=== PATIENT | male | born 1950 | race Caucasian/White ===

== ENCOUNTER 2022-06-25 14:44 | Emergency (ER) | payer MEDICARE, SELFPAY ==
[2022-06-25] VITALS (13 sets, daily range): BP systolic 154–184; BP diastolic 88–108; PULSE 66–94; RESP 16–20; O2SAT 95–97; BMI 19.2
--- NOTE | 2022-06-25 15:01 | ED.NURSE ---
Patient assisted from car to exam room. Complaining of severe chest, jaw and arm pain. EKG and vehicle monitor technician applied.
--- NOTE | 2022-06-25 15:30 | ED.CHESTPAIN ---
HPI - Chest Pain General Chief Complaint: Chest Pain Stated Complaint: Thinks he's having a heart attack Time Seen by Provider: 06/25/22 14:51 History of Present Illness HPI narrative: This 71-year-old male comes in reporting an episode of chest pain today and also about 3 or 4 days ago. Both times these chest pains occurred the symptoms lasted for 10 or 15 minutes. He states that he felt a little bit clammy. He was not doing anything strenuous at the time. He states that he typically does not do any strenuous activity because of his knees. He denies having any nausea, vomiting, lightheadedness, or shortness of breath. Currently he is not having any pain but he says there is a very slight discomfort just left of the sternum in the anterior chest. He states that he has a history of diabetes but is no longer taking any medications. He was also prescribed a cholesterol medicine but discontinued this. He states that he is a current every day smoker. Related Data Home Medications Medication Instructions Recorded Confirmed aspirin 325 mg tablet 325 mg PO DAILY 06/25/22 06/25/22 Allergies Allergy/AdvReac Type Severity Reaction Status Date / Time No Known Drug Allergies Allergy Verified 06/25/22 15:36 Review of Systems Narrative Constitutional: No fevers, no weight gain or loss. Eyes: No discharge. No vision changes. HENT: No congestion, no sore throat, no ear pain. Cardiovascular: No palpitations. Chest pain as described above. Respiratory: No shortness of breath, no wheezes, no cough. Gastrointestinal: No abdominal pain, no vomiting, no diarrhea. Genitourinary: No dysuria, no hematuria. Musculoskeletal: Normal range of motion. Skin: No rashes, no pruritis. Neurological: No dizziness, weakness, sensory change, speech change. Endo/Heme/Allergies: No bruising or bleeding. No polydipsia. Pysch: no suicidality, no anxiety, no insomnia. All other systems reviewed and are negative. [facility] Medical History (Updated 06/25/22 @ 16:57 by Jay Mathews MD) CAD (coronary artery disease) DM (diabetes mellitus), type 2 Social History Smoking Status: Current every day smoker What tobacco products do you use: cigarettes Second hand tobacco smoke exposure: No How often do you have a drink containing alcohol: never AUDIT-C Alcohol total score: 0 Non-prescribed substance use: denies use Exam Narrative Exam Narrative: Constitutional: Well-developed, well-nourished, no acute distress. HEENT: Normocephalic, atraumatic. Neck: Normal range of motion. Nontender. Supple. Heart: Regular. No murmurs. Normal rate. Intact distal pulses. Lungs: Clear to auscultation. No chest discomfort. No wheezes, rhonchi, or rales. Abdomen: Normal bowel sounds. Nontender. No rebound tenderness. Genitalia: Deferred. Back: No midline tenderness. Normal range of motion. Extremities: Normal range of motion. No injury. Skin: Intact. No rash. Warm. No erythema or pallor. Neurologic: No altered sensation. No weakness. Alert and oriented. Psychiatric: No suicidality. No anxiety or depression. No insomnia. Nursing notes and vitals signs are reviewed. Const Vital Signs, click to edit/add: Vital Signs - 24 hr 06/25/22 14:55 06/25/22 15:00 06/25/22 15:15 Pulse Rate [Pulse Oximeter] 94 94 84 Respiratory Rate 18 Blood Pressure [Left Upper Arm] 184/102 H 154/97 H 168/94 H Pulse Oximetry 95 96 95 Oxygen Delivery Method Room Air Room Air Room Air 06/25/22 15:30 06/25/22 15:45 06/25/22 16:00 Pulse Rate [Pulse Oximeter] 85 82 Respiratory Rate Blood Pressure [Left Upper Arm] 164/100 H 181/98 H 169/92 H Pulse Oximetry 95 96 Oxygen Delivery Method Room Air Room Air Course Course Hospital Course: This patient comes in with episodes of chest pain as described above. He has not had any chest pain during his visit here. His EKG shows normal sinus rhythm without any ST or T-wave abnormalities. His troponin point of care returns at 0.35. Troponin I from the lab returns at 0.39. Upon hearing the point of care troponin being elevated an attempt was made to reach out to hospitals in the area that could accommodate him. So far there are no beds available anywhere. Vital Signs Vital signs: Initial Vital Signs Pulse Rate 94 06/25/22 14:55 Pulse Rhythm 06/25/22 14:55 Respiratory Rate 18 06/25/22 14:55 Blood Pressure 184/102 H 06/25/22 14:55 Blood Pressure Mean 129 06/25/22 14:55 Blood Pressure Position Supine 06/25/22 14:55 Pulse Oximetry 95 06/25/22 14:55 Oxygen Delivery Method 06/25/22 14:55 Vital Signs Pulse Rate 94 06/25/22 14:55 Respiratory Rate 18 06/25/22 14:55 Blood Pressure 184/102 H 06/25/22 14:55 Pulse Oximetry 95 06/25/22 14:55 Oxygen Delivery Method 06/25/22 14:55 Pulse Rate 82 06/25/22 16:00 Respiratory Rate 18 06/25/22 14:55 Blood Pressure 169/92 H 06/25/22 16:00 Pulse Oximetry 96 06/25/22 16:00 Oxygen Delivery Method 06/25/22 16:00 MDM - Chest Pain MDM Narrative Medical decision making narrative: This patient comes in with a non STEMI. His troponin is elevated to 0.39. His EKG is normal. He is not currently having any chest pain. He did received 4 baby aspirin upon arrival. He also received a heparin protocol for acute coronary syndrome. Efforts were made to transfer this patient more locally but there were no beds available. [facility] was contacted and they are able to receive him. Dr. Frias is the accepting physician. Lab Data Labs: Lab Results 06/25/22 06/25/22 06/25/22 Range/Units 15:16 15:16 15:30 WBC 8.81 (4.50-11.00) K/uL RBC 5.13 (4.30-5.90) m/uL Hgb 15.4 (13.5-17.5) gm/dL Hct 45.3 (37.0-53.0) % MCV 88 (80-100) fL MCH 30 (26-34) pg MCHC 34 (32-36) gm/dL RDW Coeff of Hyacinth 14.4 (11.5-15.5) % Plt Count 253 (140-440) K/uL Neut % (Auto) 68.5 (42.0-72.0) % Lymph % (Auto) 21.1 (20-44) % Burnett % (Auto) 7.4 (0.0-11.0) % Eos % (Auto) 2.7 (0.0-7.0) % Baso % (Auto) 0.2 (0.0-3.0) % Neut # (Auto) 6.03 (1.7-7.0) K/uL Lymph # (Auto) 1.86 (0.90-2.90) K/uL Burnett # (Auto) 0.70 (0.00-0.90) K/UL Eos # (Auto) 0.24 (0.00-0.50) K/uL Baso # (Auto) 0.02 (0.00-0.30) K/uL Abs Immat Gran (auto) 0.01 (0.00-0.30) K/uL Sodium 138 (135-149) mmol/L Potassium 3.8 (3.6-5.1) mmol/L Chloride 103 (96-114) mmol/L Carbon Dioxide 25 (20-32) mmol/L BUN 19 (7-30) mg/dL Creatinine 1.0 (0.5-1.5) mg/dL Estimated Creat Clear 58.15 Estimated GFR 81 ml/min Glucose 221 H (60-115) mg/dL Calcium 9.4 (8.4-10.6) mg/dL Troponin I 0.39 H* (0.01-0.04) ng/mL POC Troponin I 0.35 H (0.01-0.04) ng/ml ECG Data Attestation: I personally reviewed and interpreted this ECG as follows: Interpretation: Normal sinus rhythm. Rate is 85 beats per minute. There are no specific ST or T-wave abnormalities. Discharge Plan Discharge Clinical Impression: Non-ST elevated myocardial infarction (non-STEMI) Patient Disposition: Xfer Other Condition: Unchanged Prescriptions: No Action aspirin 325 mg tablet 325 mg PO DAILY Follow Up/Referrals: Ino Zhao MD [Referring] - Stand Alone Forms: [employer] Info Instructions
--- NOTE | 2022-06-25 15:38 | ED.NURSE ---
Troponin POC 0.35, handed to at 1530.
[2022-06-25 15:44] LABS: Basophils Absolute Auto 0.02 K/uL (0.00-0.30); Basophils Percent Auto 0.2 % (0.0-3.0); Eosinophils Absolute Auto 0.24 K/uL (0.00-0.50); Eosinophils Percent Auto 2.7 % (0.0-7.0); Hematocrit 45.3 % (37.0-53.0); Hemoglobin* 15.4 gm/dL (13.5-17.5); Immature Granulocytes Abs Auto 0.01 K/uL (0.00-0.30); Lymphocytes Absolute Auto 1.86 K/uL (0.90-2.90); Lymphocytes Percent Auto 21.1 % (20-44); Mean Corpuscular HGB Conc 34 gm/dL (32-36); Mean Corpuscular Hemoglobin 30 pg (26-34); Mean Corpuscular Volume 88 fL (80-100); Monocytes Percent Auto 7.4 % (0.0-11.0); Neutrophils Absolute Auto 6.03 K/uL (1.7-7.0); Neutrophils Percent Auto 68.5 % (42.0-72.0); Platelet Count* 253 K/uL (140-440); RDW Coefficient of Variation % 14.4 % (11.5-15.5); Red Blood Count 5.13 m/uL (4.30-5.90); White Blood Count* 8.81 K/uL (4.50-11.00)
[2022-06-25] MEDS: ASPIRIN 81 MG TAB.CHEW 324 MG PO (15:45)
[2022-06-25 15:46] LABS: Troponin, Point-of-Care* 0.35 ng/ml (0.01-0.04)
[2022-06-25 15:58] LABS: Chloride* 103 mmol/L (96-114); Potassium* 3.8 mmol/L (3.6-5.1); Sodium* 138 mmol/L (135-149)
[2022-06-25 15:59] LABS: Slide Review Reflex No
[2022-06-25 16:01] LABS: Carbon Dioxide* 25 mmol/L (20-32); Est. Creatinine Clearance* 58.15; Estimated Glomerular Filt Rate 81 ml/min
[2022-06-25 16:02] LABS: Blood Urea Nitrogen* 19 mg/dL (7-30); Calcium* 9.4 mg/dL (8.4-10.6); Glucose* 221 mg/dL (60-115)
[2022-06-25 16:22] LABS: Troponin I* 0.39 ng/mL (0.01-0.04)
[2022-06-25 17:33] LABS: PCR FLU A Negative PCR FLU A (Negative); PCR FLU B Negative PCR FLU B (Negative); SARS PCR* Negative SARS-CoV-2 (Negative)
[2022-06-25] MEDS: HEPARIN 25,000 UNIT/500 ML BAG 14 UNIT IV (17:39)
[2022-06-25] MEDS: HEPARIN 5,000 UNIT/0.5 ML INJ 3500 UNIT IVP (17:39)
--- NOTE | 2022-06-25 17:56 | ED.NURSE ---
Addendum entered by Tim Valles RN 06/25/22 21:04: Sp error, end of note should read pt and his agreeable to transfer.. Original Note: Pt and concerned about transfer to [place] due to distance from home. MD notified, MD spoke to pt and his in the room for several minutes explaining risks of not going to [facility] for further care. After conversation, pt and his agreeable to cancer.
--- NOTE | 2022-06-25 18:34 | ED.NURSE ---
Report called to RN at [facility] ([phone]).
[2022-06-25 18:54] LABS: INR 0.92 (0.91-1.10); Prothrombin Time 12.7 Seconds
[2022-06-25 19:13] LABS: Partial Thromboplastin Time* 33 Seconds (23-33)
== END 2022-06-25 18:30 | disposition other institution (70) ==
PROVIDERS: Emergency Provider Emergency Medicine Emergency Medical Services
DX: I21.4 Non-ST elevation (NSTEMI) myocardial infarction (principal)
CPT/HCPCS: 36415; 80048; 84484; 85025; 85610; 85730; 87631; 93005; 99285; A9270; J1644

== ENCOUNTER 2022-06-25 18:15 | Outpatient (CLI) | payer MEDICARE, SELFPAY | END 2022-06-25 18:16 | disposition home or self-care (01) | LOC: AMB 08-20 02:29 | PROVIDERS: PCP Family Medicine; Visit Provider Emergency Medicine Emergency Medical Services | DX: I21.4 Non-ST elevation (NSTEMI) myocardial infarction (principal) | CPT/HCPCS: A0425; A0434 ==

== ENCOUNTER 2022-07-17 12:00 | Outpatient (REF) | payer MEDICARE, SELFPAY ==
[2022-07-17 12:55] LABS: INR 3.19 (0.91-1.10); Prothrombin Time 34.1 Seconds
== END 2022-07-17 12:01 | disposition home or self-care (01) ==
LOC: NPINS 12:00
PROVIDERS: PCP Family Medicine
DX: Z00.00 Encounter for general adult medical examination without abnormal findings (principal); I10 Essential (primary) hypertension; N18.30 Chronic kidney disease, stage 3 unspecified; E78.5 Hyperlipidemia, unspecified; E11.9 Type 2 diabetes mellitus without complications; I48.91 Unspecified atrial fibrillation
CPT/HCPCS: 85610

== ENCOUNTER 2022-07-20 13:23 | Outpatient (REF) | payer MEDICARE, SELFPAY ==
[2022-07-20 14:32] LABS: INR 2.79 (0.91-1.10); Prothrombin Time 30.8 Seconds
== END 2022-07-20 13:24 | disposition home or self-care (01) ==
LOC: NPINS 13:23
PROVIDERS: Physician Assistant; PCP Family Medicine
DX: I48.91 Unspecified atrial fibrillation (principal)
CPT/HCPCS: 85610

== ENCOUNTER 2022-07-22 10:34 | Outpatient (CLI) | payer MEDICARE, SELFPAY ==
[2022-07-22 12:46] LABS: Albumin* 3.7 g/dL (3.3-5.0); Chloride* 97 mmol/L (96-114)
[2022-07-22 12:47] LABS: Sodium* 134 mmol/L (135-149)
[2022-07-22 12:49] LABS: Bilirubin Total* 0.5 mg/dL (0.1-1.5); Carbon Dioxide* 26 mmol/L (20-32); Cholesterol* 89 mg/dL (90-199); Creatinine* 1.3 mg/dL (0.5-1.5); Estimated Glomerular Filt Rate 59 ml/min; Total Protein* 6.8 g/dL (6.0-8.3)
[2022-07-22 12:50] LABS: Alanine Aminotransferase* 42 U/L (4-50); Alkaline Phosphatase* 91 U/L (40-150); Aspartate Amino Transferase* 37 U/L (12-35); Blood Urea Nitrogen* 21 mg/dL (7-30); Calcium* 9.2 mg/dL (8.4-10.6); Glucose* 205 mg/dL (60-115); HDL Cholesterol* 26 mg/dL (>=40); LDL Cholesterol Calculated 38 mg/dL (<100); Triglycerides* 127 mg/dL (40-149)
[2022-07-22 13:07] LABS: Microalbumin Creatinine Ratio 3420 mg/g (0-30); Microalbumin Urine 836 mg/dL
== END 2022-07-22 10:35 | disposition home or self-care (01) ==
PROVIDERS: PCP Family Medicine; Visit Provider Family Medicine
DX: Z00.00 Encounter for general adult medical examination without abnormal findings (principal); E11.9 Type 2 diabetes mellitus without complications; E78.5 Hyperlipidemia, unspecified; I10 Essential (primary) hypertension; I25.10 Atherosclerotic heart disease of native coronary artery without angina pectoris; K21.9 Gastro-esophageal reflux disease without esophagitis; N18.30 Chronic kidney disease, stage 3 unspecified; Z86.39 Personal history of other endocrine, nutritional and metabolic disease
CPT/HCPCS: 80053; 80061; 82043; 82570

== ENCOUNTER 2022-07-24 10:54 | Outpatient (RCR) | payer MEDICARE, SELFPAY ==
[2022-07-24 11:16] LABS: Prothrombin Time 22.8 Seconds
== END 2022-08-19 12:41 | disposition home or self-care (01) ==
LOC: LAB 10:54
PROVIDERS: PCP Family Medicine; Visit Provider Family Medicine
DX: I48.91 Unspecified atrial fibrillation (principal)
CPT/HCPCS: 85610

== ENCOUNTER 2022-08-01 17:29 | Observation (INO) | payer MEDICARE, SELFPAY ==
[2022-08-01] VITALS (12 sets, daily range): BP systolic 130–151; BP diastolic 56–73; PULSE 54–59; RESP 18; TEMP 36.5–37.2; O2SAT 94–99; BMI 20.7
--- NOTE | 2022-08-01 18:02 | CRLHL7_ITS ---
For Patients: As a result of the Century Cures Act, medical imaging exams and procedure reports are released immediately into your electronic medical record. You may view this report before your referring provider. If you have questions, please contact your health care provider. INDICATION: SOB HISTORY: Shortness of breath. COMPARISON: 07/23/2015. 07/09/2013. TECHNIQUE: Chest one-view portable. FINDINGS: Postoperative changes of a median sternotomy. There is pleural thickening in the right hemithorax, with an increase in interstitial type opacities in the right lung when compared with 07/23/2015. There is no pneumothorax or deep sulcus sign. Calcified, bilateral pleural plaques, right greater than left. The central airway is normal. There is no sizable pleural effusion. There is no pneumothorax or deep sulcus sign. Impression: 1. Bilateral calcified pleural plaques, right greater than left. 2. Interstitial type opacities in the right lung, with interval progression when compared with 07/2015. This may represent pulmonary fibrosis. Dictated by Shabbir Almonte MD @ 08/01/2022 7:12:27 PM Dictated by: Shabbir Almonte MD @ 08/01/2022 19:12:34 (Electronically Signed)
--- NOTE | 2022-08-01 18:08 | CRLHL7_ITS ---
For Patients: As a result of the Century Cures Act, medical imaging exams and procedure reports are released immediately into your electronic medical record. You may view this report before your referring provider. If you have questions, please contact your health care provider. INDICATION: Fall. TECHNIQUE: Noncontrast CT images acquired through the brain. COMPARISON: None. FINDINGS: Prominence of the ventricles and sulci compatible with mild diffuse cerebral volume loss. No mass effect or midline shift. The solorzano white differentiation is maintained. No acute intracranial hemorrhage or pathologic extra-axial fluid collection. Chronic lacunar infarction or prominent perivascular space right internal capsule anterior limb. Atherosclerotic calcifications in the carotid siphons. The globes are symmetric. The calvarium is intact. The visualized paranasal sinuses and mastoid air cells are clear. IMPRESSION: No acute intracranial hemorrhage or mass effect. Please note that all CT scans at this facility use dose modulation, iterative reconstruction, and/or weight-based dosing when appropriate to reduce radiation dose to as low as reasonably achievable. Dictated by Matias Zuluaga MD @ 08/01/2022 7:03:33 PM (Electronically Signed)
[2022-08-01 18:40] LABS: Basophils Absolute Auto 0.02 K/uL (0.00-0.30); Basophils Percent Auto 0.3 % (0.0-3.0); Eosinophils Percent Auto 2.6 % (0.0-7.0); Hematocrit 33.4 % (37.0-53.0); Hemoglobin* 10.8 gm/dL (13.5-17.5); Immature Granulocytes Abs Auto 0.01 K/uL (0.00-0.30); Immature Granulocytes Pct Auto 0.1 %; Lymphocytes Percent Auto 16.1 % (20-44); Mean Corpuscular HGB Conc 32 gm/dL (32-36); Mean Corpuscular Hemoglobin 28 pg (26-34); Mean Corpuscular Volume 88 fL (80-100); Monocytes Percent Auto 9.3 % (0.0-11.0); Neutrophils Absolute Auto 5.57 K/uL (1.7-7.0); Neutrophils Percent Auto 71.6 % (42.0-72.0); Platelet Count* 351 K/uL (140-440); RDW Coefficient of Variation % 14.4 % (11.5-15.5); Red Blood Count 3.81 m/uL (4.30-5.90); White Blood Count* 7.77 K/uL (4.50-11.00)
[2022-08-01 18:43] LABS: Slide Review Reflex No
[2022-08-01 18:55] LABS: INR 1.17 (0.91-1.10); Prothrombin Time 15.6 Seconds
--- NOTE | 2022-08-01 18:56 | CRLHL7_ITS ---
For Patients: As a result of the Century Cures Act, medical imaging exams and procedure reports are released immediately into your electronic medical record. You may view this report before your referring provider. If you have questions, please contact your health care provider. DATE: 08/01/2022 CLINICAL HISTORY: Patient with focal neurological deficits. TECHNIQUE: Standard helical CT image acquisition through the intracranial circulation following intravenous administration of contrast material with bolus tracking. Multiplanar reconstructed images were performed and interpreted. COMPARISON: CT same day. FINDINGS: There is no cerebral aneurysm or large vessel occlusion. The right internal carotid artery is normal. The right middle cerebral artery and its branches are normal. The right anterior cerebral artery and its branches are normal. The left internal carotid artery is normal. The left middle cerebral artery and its branches are normal. The left anterior cerebral artery and its branches are normal. The anterior communicating artery is well visualized and appears normal. The right vertebral artery and PICA are normal. The left vertebral artery and PICA are normal. The right vertebral artery is dominant. The basilar artery is patent and appears normal. The right posterior cerebral artery is normal. The left posterior cerebral artery is normal. The visualized venous structures are patent. IMPRESSION: Normal CT angiogram of the head without intracranial aneurysm or other neurovascular abnormality. Please note that all CT scans at this facility use dose modulation, iterative reconstruction, and/or weight-based dosing when appropriate to reduce radiation dose to as low as reasonably achievable. Dictated by Suzan Lechuga MD @ 08/01/2022 10:03:55 PM (Electronically Signed)
--- NOTE | 2022-08-01 18:56 | CRLHL7_ITS ---
For Patients: As a result of the Century Cures Act, medical imaging exams and procedure reports are released immediately into your electronic medical record. You may view this report before your referring provider. If you have questions, please contact your health care provider. DATE: 08/01/2022 CLINICAL HISTORY: Patient with focal neurological deficits. TECHNIQUE: Standard helical CT image acquisition of the neck up to the skull base after bolus intravenous contrast enhancement. Multiplanar reconstructed images performed on a separate workstation. COMPARISON: CT same day. FINDINGS: The origins of the great vessels from the aortic arch are patent. The origin of the right vertebral artery demonstrates mild narrowing. The origin of the left vertebral artery demonstrates mild narrowing. The common carotid arteries are patent. There is a mild (<50%) stenosis at the origin of the right internal carotid artery by NASCET criteria. This is caused by non-calcified plaque with a <2mm residual lumen. There is a severe (75%) stenosis at the origin of the left internal carotid artery by NASCET criteria. This is caused by a large amount of non-calcified plaque with a 1.1mm residual lumen. The rest of the cervical segments of the internal carotid arteries are patent up to the skull base. The vertebral arteries are codominant. The cervical segments of the vertebral arteries are patent up to the skull base. The visualized lung apices demonstrate severe emphysema and biapical scarring. The thyroid gland is unremarkable. The soft tissues of the neck are unremarkable. There are degenerative changes in the cervical spine. IMPRESSION: 1. Severe (75%) stenosis at the origin of the left internal carotid artery by NASCET criteria caused by a large amount of non-calcified plaque with a 1.1mm residual lumen. 2. Mild (<50%) stenosis at the origin of the right internal carotid artery by NASCET criteria caused by non-calcified plaque with a <2mm residual lumen. 3. Mild bilateral vertebral artery origin stenosis. Please note that all CT scans at this facility use dose modulation, iterative reconstruction, and/or weight-based dosing when appropriate to reduce radiation dose to as low as reasonably achievable. Dictated by Suzan Lechuga MD @ 08/01/2022 10:00:54 PM (Electronically Signed)
[2022-08-01 19:01] LABS: Chloride* 104 mmol/L (96-114); Potassium* 4.3 mmol/L (3.6-5.1); Sodium* 137 mmol/L (135-149)
[2022-08-01 19:04] LABS: Blood Urea Nitrogen* 28 mg/dL (7-30); Carbon Dioxide* 27 mmol/L (20-32); Creatinine* 1.3 mg/dL (0.5-1.5); Est. Creatinine Clearance* 45.46; Estimated Glomerular Filt Rate 59 ml/min
[2022-08-01 19:05] LABS: Glucose* 160 mg/dL (60-115)
[2022-08-01 19:16] LABS: PCR FLU A Negative PCR FLU A (Negative); PCR FLU B Negative PCR FLU B (Negative); PCR RSV Negative PCR RSV (Negative)
[2022-08-01 19:20] LABS: SARS PCR* Negative SARS-CoV-2 (Negative)
--- NOTE | 2022-08-01 19:51 | ED_ITS ---
HPI - General Adult General Date Seen: 08/01/22 Chief complaint: Neuro Symptoms/Altered Deficit Stated complaint: Weakness Numbness in Arm Time Seen by Provider: 08/01/22 17:33 Source: patient and family History of Present Illness HPI narrative: Patient is a 72-year-old male with recent past medical history notable for 4 vessel CABG in [place] after STEMI in mid June. He also has a past medical history of TIA, with an MRI and MR a done here in 2019 showing an acute stroke, 50% stenosis in the internal carotid on the left, and bilateral stenosis in the MCAs. He developed atrial fibrillation after his CABG and was started on Coumadin. He does have a history of medication noncompliance. He tells me that he has been taking his Coumadin, but when it was checked on July 24 it was 1.9, it was 1.4 on July 30. He tells me the dose was increased as they are continuing to work on getting him therapeutic. Last night, as he was getting ready for bed, he says he had development of paresthesias in his left arm, he says that his hand had involuntary squirming movements, and he was unable to move his arm for about 15 minutes. Says that he has had TIAs in the past and so when the symptoms resolved he says he just 1 on with his night. Also says that at same time he developed some paresthesias in the left side of his face and circumferentially around his lips. He went to bed as the symptoms seem to improve. This morning however he feels like the symptoms came back. He has paresthesias on the left side of his face, on the left arm from the elbow down, and now on the left leg from the knee down. He has not had further weakness. He does feel like it is harder to speak, although it is a little difficult to determine exactly in what way. He is certainly not dysarthric or aphasic. His says that he did not have a facial droop. He has not had chest pain. He has not had shortness of breath. He does say that when he lays down at night he often has a panic attack and has to sit back up, calm himself down before he can lay back down. He is then able to lay flat without difficulty breathing. He started cardiac rehab just in the past couple of days, says that is really not gotten going yet. Otherwise he feels like he is doing pretty well from a surgery standpoint, felt he had been improving although in the past couple of days he has felt just generally more weak. He has not had any vomiting or diarrhea. Has not had fevers. He quit smoking after his surgery. Related Data Home Medications Medication Instructions Recorded Confirmed acetaminophen 325 mg capsule 325 mg PO ONCE PRN 07/22/22 08/01/22 (Tylenol) amlodipine 10 mg tablet 10 mg PO QDAY 07/22/22 08/01/22 ascorbic acid (vitamin C) 500 mg 500 mg PO DAILY 07/22/22 08/01/22 capsule atorvastatin 80 mg tablet 80 mg PO QDAY 07/22/22 08/01/22 clopidogrel 75 mg tablet 75 mg PO QDAY 07/22/22 08/01/22 glipizide 5 mg tablet 5 mg PO QDAY 07/22/22 08/01/22 metoprolol succinate 50 mg 50 mg PO QDAY 07/22/22 08/01/22 tablet,extended release 24 hr vitamin B complex 1 tab PO QDAY 07/22/22 08/01/22 warfarin 2.5 mg tablet 2.5 mg PO QDAY 07/22/22 08/01/22 warfarin 2.5 mg tablet 1.25 mg PO QDAY 08/01/22 08/01/22 Allergies Allergy/AdvReac Type Severity Reaction Status Date / Time No Known Drug Allergies Allergy Verified 08/01/22 19:51 Review of Systems Status of ROS: Reports: 10 or more systems reviewed and unremarkable except as noted in History and below [facility] Medical History Bilateral carotid artery disease CAD (coronary artery disease) CKD (chronic kidney disease), stage III COPD (chronic obstructive pulmonary disease) DM (diabetes mellitus), type 2 Dyslipidemia GERD (gastroesophageal reflux disease) History of non-ST elevation myocardial infarction (NSTEMI) (06/25/22) History of TIA (transient ischemic attack) (03/2019) History of vitamin D deficiency Hypertension PAF (paroxysmal atrial fibrillation) Poor dentition Tobacco abuse disorder Surgical History History of four vessel coronary artery bypass graft (06/30/22) History of left knee surgery History of tonsillectomy Family History Other Adopted person Social History Narrative: , 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 In general, an alert, nontoxic male. Thin, appears fatigued. Head: Normocephalic, atraumatic. Eyes: Pupils are equal reactive. Extraocular movements are full. Conjunctivae are normal. ENT: Mucous membranes are moist. Throat is normal. Neck: Supple without lymphadenopathy. No stridor. Heart: Regular rate and rhythm. No murmur or rub. Lungs: Clear bilaterally. No increased work of breathing, crackles or wheezes. Abdomen: Soft and nontender. No organomegaly. Extremities: Well perfused. No edema. No calf tenderness. Pulses intact. Neurologic: Patient is alert and oriented to person and place. Speech is fluent. Face is symmetric. Moves all extremities equally, strength is 5/5 in bilateral upper and lower extremities. Cerebellar function is intact by finger- nose testing. Sensation is intact, though he feels like he has pins and needles throughout the distal left upper and lower leg, and the left side of his face. Affect: Normal. Skin: Warm and dry. Well perfused. Const: Vital Signs, click to edit/add: Vital Signs - 24 hr 08/01/22 17:38 08/01/22 18:37 08/01/22 18:43 Temperature 97.7 F Pulse Rate 58 L 55 L Pulse Rate [Pulse Oximeter] 59 L Respiratory Rate 18 Blood Pressure 141/73 H Blood Pressure [Ri ght Upper Arm] 130/64 Pulse Oximetry 99 97 98 Oxygen Delivery Me thod Room Air 08/01/22 19:00 08/01/22 19:02 08/01/22 19:03 Temperature Pulse Rate 54 L 54 L 55 L Pulse Rate [Pulse Oximeter] Respiratory Rate Blood Pressure 132/65 Blood Pressure [Ri ght Upper Arm] Pulse Oximetry 98 98 98 Oxygen Delivery Me thod 08/01/22 19:33 08/01/22 19:34 Temperature Pulse Rate 56 L 55 L Pulse Rate [Pulse Oximeter] Respiratory Rate Blood Pressure 135/56 L Blood Pressure [Ri ght Upper Arm] Pulse Oximetry 95 95 Oxygen Delivery Me thod Documenting provider has reviewed patient's vital signs: yes Course Course Hospital Course: Patient had an EKG which by my review showed a normal sinus rhythm, ventricular rate of He went on to have a CT of the head without contrast which I read as negative without acute findings. Final radiology report is likewise negative. I did discuss his case with the neurologist on-call at [facility]. He felt that the patient's symptoms could be consistent with a thalamic stroke and recommended CT angiogram to rule out a large thrombus. This is pending. In the meantime, labs have shown a normal white blood cell count of 7.8. Hemoglobin is 10.8. Platelets are normal. His INR interestingly has dropped again to 1.2. Metabolic panel is entirely within normal limits. COVID flu and RSV are negative. Point of care troponin is 0. I did do a chest x-ray as well, I compared this to previous his he does have some abnormalities but these large in seem to been present on his previous x-ray. Median sternotomy is new. Final radiology report is as follows.: 1. Bilateral calcified pleural plaques, right greater than left. 2. Interstitial type opacities in the right lung, with interval progression when compared with 07/2015. This may represent pulmonary fibrosis. He does not appear clinically to be in congestive heart failure and I do not see signs of this on his chest x-ray either. At the time of his lab draw the chemistry machine was down and I did not order a BNP because of that. Given the lack of clinical suspicion for congestive heart failure do not think he needs that lab. CT angiogram read as follows: No proximal large vessel occlusion. Moderate (50-69 percent) proximal left cervical internal carotid artery stenosis secondary to large noncalcified plaque. Mild (less than 50 percent) proximal right cervical internal carotid stenosis. Moderate focal narrowing of the proximal left and distal right vertebral artery V1 segments is likely secondary to atherosclerotic disease. Short-segment arterial dissection would be considered less likely. Moderate proximal left subclavian artery stenosis. Patient has been stable from a neurologic standpoint. I did speak with Neurology again about his CT angiogram findings, they recommend no further treatment aside from working on getting him therapeutic on his Coumadin. He does need an MRI which can be done non emergently tomorrow or Wednesday. He will be admitted for observation and further treatment. Vital Signs Vital signs: Initial Vital Signs Temperature 97.7 F 08/01/22 17:38 Temperature Source Temporal Artery Scan 08/01/22 17:38 Pulse Rate 59 L 08/01/22 17:38 Respiratory Rate 18 08/01/22 17:38 Blood Pressure 130/64 08/01/22 17:38 Blood Pressure Mean 86 08/01/22 17:38 Blood Pressure Position Sitting 08/01/22 17:38 Pulse Oximetry 99 08/01/22 17:38 Oxygen Delivery Method 08/01/22 17:38 Vital Signs Temperature 97.7 F 08/01/22 17:38 Pulse Rate 59 L 08/01/22 17:38 Respiratory Rate 18 08/01/22 17:38 Blood Pressure 130/64 08/01/22 17:38 Pulse Oximetry 99 08/01/22 17:38 Oxygen Delivery Method 08/01/22 17:38 Temperature 97.7 F 08/01/22 17:38 Pulse Rate 55 L 08/01/22 19:34 Respiratory Rate 18 08/01/22 17:38 Blood Pressure 135/56 L 08/01/22 19:34 Pulse Oximetry 95 08/01/22 19:34 Oxygen Delivery Method 08/01/22 17:38 Medical Decision Making Lab Data Labs: Lab Results 08/01/22 08/01/22 08/01/22 Range/Units 18:20 18:20 18:20 WBC 7.77 (4.50-11.00) K/uL RBC 3.81 L (4.30-5.90) m/uL Hgb 10.8 L (13.5-17.5) gm/dL Hct 33.4 L (37.0-53.0) % MCV 88 (80-100) fL MCH 28 (26-34) pg MCHC 32 (32-36) gm/dL RDW Coeff of Hyacinth 14.4 (11.5-15.5) % Plt Count 351 (140-440) K/uL Neut % (Auto) 71.6 (42.0-72.0) % Lymph % (Auto) 16.1 L (20-44) % [place] % (Auto) 9.3 (0.0-11.0) % Eos % (Auto) 2.6 (0.0-7.0) % Baso % (Auto) 0.3 (0.0-3.0) % Neut # (Auto) 5.57 (1.7-7.0) K/uL Lymph # (Auto) 1.30 (0.90-2.90) K/uL [place] # (Auto) 0.70 (0.00-0.90) K/UL Eos # (Auto) 0.20 (0.00-0.50) K/uL Baso # (Auto) 0.02 (0.00-0.30) K/uL Abs Immat Gran (auto) 0.01 (0.00-0.30) K/uL Imm/Tot Granulo (auto) 0.1 % INR 1.17 H (0.91-1.10) Sodium 137 (135-149) mmol/L Potassium 4.3 (3.6-5.1) mmol/L Chloride 104 (96-114) mmol/L Carbon Dioxide 27 (20-32) mmol/L BUN 28 (7-30) mg/dL Creatinine 1.3 (0.5-1.5) mg/dL Estimated Creat Clear 45.46 Estimated GFR 59 ml/min Glucose 160 H (60-115) mg/dL Calcium 9.0 (8.4-10.6) mg/dL SARS-CoV-2 (PCR) (Negative) Influenza Type A (PCR) (Negative) Influenza Type B (PCR) (Negative) RSV (PCR) (Negative) POC Troponin I (0.01-0.04) ng/ml 08/01/22 08/01/22 Range/Units 18:20 18:20 WBC (4.50-11.00) K/uL RBC (4.30-5.90) m/uL Hgb (13.5-17.5) gm/dL Hct (37.0-53.0) % MCV (80-100) fL MCH (26-34) pg MCHC (32-36) gm/dL RDW Coeff of Hyacinth (11.5-15.5) % Plt Count (140-440) K/uL Neut % (Auto) (42.0-72.0) % Lymph % (Auto) (20-44) % [place] % (Auto) (0.0-11.0) % Eos % (Auto) (0.0-7.0) % Baso % (Auto) (0.0-3.0) % Neut # (Auto) (1.7-7.0) K/uL Lymph # (Auto) (0.90-2.90) K/uL [place] # (Auto) (0.00-0.90) K/UL Eos # (Auto) (0.00-0.50) K/uL Baso # (Auto) (0.00-0.30) K/uL Abs Immat Gran (auto) (0.00-0.30) K/uL Imm/Tot Granulo (auto) % INR (0.91-1.10) Sodium (135-149) mmol/L Potassium (3.6-5.1) mmol/L Chloride (96-114) mmol/L Carbon Dioxide (20-32) mmol/L BUN (7-30) mg/dL Creatinine (0.5-1.5) mg/dL Estimated Creat Clear Estimated GFR ml/min Glucose (60-115) mg/dL Calcium (8.4-10.6) mg/dL SARS-CoV-2 (PCR) Negative SARS-CoV-2 (Negative) Influenza Type A (PCR) Negative PCR FLU A (Negative) Influenza Type B (PCR) Negative PCR FLU B (Negative) RSV (PCR) Negative PCR RSV (Negative) POC Troponin I 0.00 L (0.01-0.04) ng/ml Discharge Plan Discharge Clinical Impression: CAD (coronary artery disease), CVA (cerebral vascular accident) Patient Disposition: Admitted As Inpatient Condition: Stable
--- NOTE | 2022-08-01 21:23 | PM.IMHP1 ---
Hospitalist- H&P: HPI History of Present Illness Date Seen: 08/01/22 Chief complaint: Weakness Numbness in Arm Narrative: Phillip Hernandez is a 72 year old male who presented to the emergency room with his today for concerns of generalized weakness and left-sided numbness. Has noted weakness over the past few days, generalized. On further questioning, seems to be primarily in his lower extremities, but is able to get up from a chair without assistance. He noted that today when he went to the bathroom he almost felt ?achy? in addition to his weakness. He has had no falls. He has not had any palpitations. He has not had any chest pain or dyspnea. Patient also noted acute onset of L arm numbness last night before bed, had a large cramp-type movement accompanying this feeling (but didn't actually feel a cramp at that time). The numbness spread superiorly up into L side of face. There was no accompanying chest pain. attempted to bring patient to ED, but patient refused, went to bed and slept fairly well. Today, continued to have significant generalized weakness, which prompted his ED visit. The numbness from yesterday has actually improved and is primarily only noted in L hand today. ER course and findings: - no acute findings on head CT or CTA - mild stenosis of right internal carotid, severe stenosis at left internal carotid (formal report below) - no acute changes on EKG, troponin negative - Hemoglobin 10.9 (was 10.8 last week during PCP appointment, was 15 prior to cardiac event in early June) - INR 1.17 - concern for chronic lung disease on chest x-ray Known history of CAD, recent nSTEMI and CABG x4 06/30/2022 in [place]. Postoperatively, developed new onset atrial fibrillation, on metoprolol and Amiodarone for rate control, Plavix and Coumadin for prophylaxis. CHADS-VASC score of >7. Patient also has known stenosis of his left carotid artery and left subclavian by previous imaging. Saw his Management Engineer (Dr. Chambers, EP) yesterday for a follow-up. At that appointment, plan was made to stop amiodarone, and start Bisoprolol on Wednesday at 2.[address] Chambers is also working on coupons for patient to transition from Coumadin to apixaban (currently not on this, cost prohibitive). Past medical history includes emphysema, non-insulin dependent DM2 (last A1C 7.2), TIA, chronic lung disease with advanced emphysema, stage III CKD. Medication compliance is not entirely clear, although patient confirms taking his Coumadin nightly as prescribed. His INR remained subtherapeutic and has actually trended downward over the last week. Dr. Wade is PCP. Lives with Keesha (medical decision maker, if needed) in [place]. Requests DNR/DNI status. 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 Has an adult son and daughter in [place]. Quit smoking this year after his heart attack, 60+ pack year history. Has not used alcohol for greater than 30 years. Review of Systems Status of ROS: Reports: 10 or more systems reviewed and unremarkable except as noted in History and below Narrative: Has noted intermittent tremors of bilateral upper extremities for the past week or so. Many nights when patient lays down, he feels a little panicked in regards to his breathing; he often sits up takes a few deep breaths and lays back down and symptoms go away. He denies PND. About one week ago, had a few episodes of diarrhea, then constipation, now feels that GI system is back to normal. No significant weight changes. No skin concerns. [facility] Medical History (Updated 08/01/22 @ 23:09 by Michaela Fuentes MD) Bilateral carotid artery disease CAD (coronary artery disease) CKD (chronic kidney disease), stage III COPD (chronic obstructive pulmonary disease) DM (diabetes mellitus), type 2 Dyslipidemia GERD (gastroesophageal reflux disease) History of non-ST elevation myocardial infarction (NSTEMI) (06/25/22) History of TIA (transient ischemic attack) (03/2019) History of vitamin D deficiency Hypertension PAF (paroxysmal atrial fibrillation) Poor dentition Tobacco abuse disorder Surgical History History of four vessel coronary artery bypass graft (06/30/22) History of left knee surgery History of tonsillectomy Family History Other Adopted person Social History Narrative: , 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, 2 children Exercise walking half a block daily Ex-smoker quit 2021, history of 45 pack years Does not drink alcohol Highest level of school completed/degree received: high school graduate Smoking Status: Former smoker What tobacco products do you use: cigarettes Years smoked: 55 Smoking quit date/years: <= 15 years ago Second hand tobacco smoke exposure: No How often do you have a drink containing alcohol: never AUDIT-C Alcohol total score: 0 Non-prescribed substance use: denies use Caffeine: Yes (a cup /day) Little interest or pleasure in doing things: not at all Feeling down, depressed, or hopeless: not at all service: No Meds Home Medications and Allergies Home Medications Medication Instructions Recorded Confirmed Type acetaminophen 325 mg capsule 325 mg PO ONCE PRN 07/22/22 08/01/22 History (Tylenol) amlodipine 10 mg tablet 10 mg PO QDAY 07/22/22 08/01/22 History ascorbic acid (vitamin C) 500 mg 500 mg PO DAILY 07/22/22 08/01/22 History capsule atorvastatin 80 mg tablet 80 mg PO QDAY 07/22/22 08/01/22 History clopidogrel 75 mg tablet 75 mg PO QDAY 07/22/22 08/01/22 History glipizide 5 mg tablet 5 mg PO QDAY 07/22/22 08/01/22 History metoprolol succinate 50 mg 50 mg PO QDAY 07/22/22 08/01/22 History tablet,extended release 24 hr vitamin B complex 1 tab PO QDAY 07/22/22 08/01/22 History warfarin 2.5 mg tablet 2.5 mg PO QDAY 07/22/22 08/01/22 History warfarin 2.5 mg tablet 1.25 mg PO QDAY 08/01/22 08/01/22 History Home Medication Comments: Patient also had chlorthalidone 25 mg on his list from recent cardiology appointment Allergies Allergy/AdvReac Type Severity Reaction Status Date / Time No Known Drug Allergies Allergy Verified 08/01/22 19:51 Exam Narrative: Exam Narrative: GEN: Alert and oriented, laying comfortably in bed and speaking in full sentences HEENT: Normal external ears, EOMIs bilaterally, dentition is poor with no signs of active infection CV: RRR, No concerning murmurs, rubs, or gallops R: Air movement adequate, fine crackles bilateral bases, no wheezing Ext: wwp, no concerning edema Skin: No concerning skin lesions or rashes on exposed skin Neuro: No facial droop, EOMIs bilaterally. Left-sided pharmacist aide strength is decreased compared to the right, also has weaker intrinsic musculature in the left hand vs right. No dysmetria on [id number]-sold exam, although mild tremor is noted intermittently bilaterally, not intention. Gait not observed Psych: Appropriate Const: Vital Signs, click to edit/add: Vital Signs - 24 hr 08/01/22 17:38 08/01/22 18:37 08/01/22 18:43 Temperature 97.7 F Pulse Rate 58 L 55 L Pulse Rate [Pulse Oximeter] 59 L Respiratory Rate 18 Blood Pressure 141/73 H Blood Pressure [Ri ght Upper Arm] 130/64 Pulse Oximetry 99 97 98 Oxygen Delivery Me thod Room Air 08/01/22 19:00 08/01/22 19:02 08/01/22 19:03 Temperature Pulse Rate 54 L 54 L 55 L Pulse Rate [Pulse Oximeter] Respiratory Rate Blood Pressure 132/65 Blood Pressure [Ri ght Upper Arm] Pulse Oximetry 98 98 98 Oxygen Delivery Me thod 08/01/22 19:33 08/01/22 19:34 Temperature Pulse Rate 56 L 55 L Pulse Rate [Pulse Oximeter] Respiratory Rate Blood Pressure 135/56 L Blood Pressure [Ri ght Upper Arm] Pulse Oximetry 95 95 Oxygen Delivery Me thod Hospitalist - H&P: Result Labs Labs: Short CBC 08/01/22 Range/Units 18:20 WBC 7.77 (4.50-11.00) K/uL Hgb 10.8 L (13.5-17.5) gm/dL Hct 33.4 L (37.0-53.0) % Plt Count 351 (140-440) K/uL BMP 08/01/22 18:20 Sodium 137 Potassium 4.3 Chloride 104 Carbon Dioxide 27 BUN 28 Creatinine 1.3 Glucose 160 H Calcium 9.0 DATE: 08/01/2022 CLINICAL HISTORY: Patient with focal neurological deficits. TECHNIQUE: Standard helical CT image acquisition of the neck up to the skull base after bolus intravenous contrast enhancement.? Multiplanar reconstructed images performed on a separate workstation. COMPARISON: CT same day. FINDINGS: The origins of the great vessels from the aortic arch are patent. The origin of the right vertebral artery demonstrates mild narrowing. The origin of the left vertebral artery demonstrates mild narrowing. The common carotid arteries are patent. There is a mild (<50%) stenosis at the origin of the right internal carotid artery by NASCET criteria. This is caused by non-calcified plaque with a <2mm residual lumen. There is a severe (75%) stenosis at the origin of the left internal carotid artery by NASCET criteria. This is caused by a large amount of non-calcified plaque with a 1.1mm residual lumen. The rest of the cervical segments of the internal carotid arteries are patent up to the skull base. The vertebral arteries are codominant. The cervical segments of the vertebral arteries are patent up to the skull base. The visualized lung apices demonstrate severe emphysema and biapical scarring. The thyroid gland is unremarkable. The soft tissues of the neck are unremarkable. There are degenerative changes in the cervical spine. IMPRESSION: 1. Severe (75%) stenosis at the origin of the left internal carotid artery by NASCET criteria caused by a large amount of non-calcified plaque with a 1.1mm residual lumen. 2. Mild (<50%) stenosis at the origin of the right internal carotid artery by NASCET criteria caused by non-calcified plaque with a <2mm residual lumen. 3. Mild bilateral vertebral artery origin stenosis. Please note that all CT scans at this facility use dose modulation, iterative reconstruction, and/or weight-based dosing when appropriate to reduce radiation dose to as low as reasonably achievable. Dictated by Suzan Lechuga MD @ 08/01/2022 10:00:54 PM INDICATION: SOB HISTORY: Shortness of breath. COMPARISON: 07/23/2015. 07/09/2013. TECHNIQUE: Chest one-view portable. FINDINGS: Postoperative changes of a median sternotomy. There is pleural thickening in the right hemithorax, with an increase in interstitial type opacities in the right lung when compared with 07/23/2015. There is no pneumothorax or deep sulcus sign. Calcified, bilateral pleural plaques, right greater than left. The central airway is normal. There is no sizable pleural effusion. There is no pneumothorax or deep sulcus sign. Impression: 1. Bilateral calcified pleural plaques, right greater than left. 2. Interstitial type opacities in the right lung, with interval progression when compared with 07/2015. This may represent pulmonary fibrosis. Dictated by Shabbir Almonte MD @ 08/01/2022 7:12:27 PM Assessment and Plan Assessment and plan (1) Left sided numbness: Status: Acute Assessment and Plan: - concerning for CVA given risk factors, previous TIA - Dr. Rogel in the emergency room discussed case with stroke neurologist, who recommends anticoagulation as first-line treatment - MRI ordered - continue Coumadin with goal INR 2-3, will include HS Lovenox at this time given subtherapeutic INR - continue Plavix and statin - therapy evaluations given weakness/numbness (2) PAF (paroxysmal atrial fibrillation): Problem comment: CHADS2-VASc >7. Last dose of amiodarone 07/31 pm - transitioning to Bisoprolol per Cardiology (starting this 08/03) Status: Chronic Assessment and Plan: - rate controlled at this time, will follow with telemetry. (3) DM (diabetes mellitus), type 2: Problem comment: Noninsulin dependent Status: Chronic Assessment and Plan: - reassuring outpatient A1c, Accu-Cheks and sliding scale insulin (4) Hypertension: Status: Chronic Assessment and Plan: - holding home meds for permissive hypertension, will have pharmacy confirm med list again with patient and (5) CAD (coronary artery disease): Status: Chronic Assessment and Plan: - continue Plavix and statin (6) COPD (chronic obstructive pulmonary disease): Problem comment: Severe with fairly extensive biapical pleural thickening & scarring on 06/2019 CT scan. 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
--- NOTE | 2022-08-01 21:24 | W.PC.EDHO ---
Primary Language: Preferred Language: Orientation Status: [x] Alert & Oriented [] Slight Confusion [] Known Dx Dementia Transfers By: SBA [] Assist of 1 [] Assist of 2 [] Lift Description of Symptoms ED Triage Present Problem yesterday got up early for cardio appt. was Description feeling weak and tired and felt off. has continued to feel that way. last night when getting ready for bed L arm numbness, couldn't move arm and hand and fingers were squirming around. then had numbness in face and jaw. did sleep well. numbness continues in L hand. legs feel weak and numb today. recently had bypass 08/11 Female History Patient Steffanie Coma Scale Steffanie coma scale total score 15 IV Insertion/Site Date of IV Line Insertion [ 08/01/22 Right Forearm] Oxygen Administration Pulse Oximetry 95 Pulse Oximetry 95 Pulse Oximetry 98 Pulse Oximetry 98 Pulse Oximetry 98 Pulse Oximetry 98 Pulse Oximetry 97 Pulse Oximetry 99 Oxygen Delivery Method Room Air
[2022-08-01] MEDS: ATORVASTATIN CALCIUM 40 MG TABLET 80 MG PO (23:37)
[2022-08-01] MEDS: ACETAMINOPHEN 325 MG TABLET 650 MG PO (23:38)
[2022-08-01] MEDS: ENOXAPARIN 40 MG/0.4 ML INJ SUBCUT (23:39)
[2022-08-01] MEDS: WARFARIN 5 MG TABLET PO (23:39)
[2022-08-02 00:40] VITALS: PULSE 53
[2022-08-02 03:15] VITALS: BP 138/73; PULSE 51; RESP 18; TEMP 36.8; O2SAT 98
[2022-08-02 04:41] LABS: Basophils Absolute Auto 0.02 K/uL (0.00-0.30); Basophils Percent Auto 0.3 % (0.0-3.0); Eosinophils Absolute Auto 0.24 K/uL (0.00-0.50); Eosinophils Percent Auto 3.2 % (0.0-7.0); Hematocrit 31.8 % (37.0-53.0); Hemoglobin* 10.4 gm/dL (13.5-17.5); Immature Granulocytes Abs Auto 0.01 K/uL (0.00-0.30); Immature Granulocytes Pct Auto 0.1 %; Lymphocytes Absolute Auto 2.02 K/uL (0.90-2.90); Lymphocytes Percent Auto 27.3 % (20-44); Mean Corpuscular HGB Conc 33 gm/dL (32-36); Mean Corpuscular Hemoglobin 29 pg (26-34); Mean Corpuscular Volume 88 fL (80-100); Neutrophils Absolute Auto 4.51 K/uL (1.7-7.0); Neutrophils Percent Auto 61.1 % (42.0-72.0); Platelet Count* 361 K/uL (140-440); RDW Coefficient of Variation % 14.4 % (11.5-15.5); Red Blood Count 3.63 m/uL (4.30-5.90); White Blood Count* 7.39 K/uL (4.50-11.00)
[2022-08-02 04:42] LABS: Slide Review Reflex No
[2022-08-02 04:45] LABS: Albumin* 3.7 g/dL (3.3-5.0); Chloride* 103 mmol/L (96-114); Sodium* 137 mmol/L (135-149)
[2022-08-02 04:46] LABS: INR 1.18 (0.91-1.10); Potassium* 4.5 mmol/L (3.6-5.1); Prothrombin Time 15.7 Seconds
[2022-08-02 04:48] LABS: Alanine Aminotransferase* 26 U/L (4-50); Alkaline Phosphatase* 87 U/L (40-150); Aspartate Amino Transferase* 27 U/L (12-35); Bilirubin Total* 0.6 mg/dL (0.1-1.5); Blood Urea Nitrogen* 24 mg/dL (7-30); Carbon Dioxide* 29 mmol/L (20-32); Creatinine* 1.2 mg/dL (0.5-1.5); Est. Creatinine Clearance* 49.38; Estimated Glomerular Filt Rate 65 ml/min; Glucose* 123 mg/dL (60-115); Total Protein* 6.9 g/dL (6.0-8.3)
[2022-08-02 04:49] LABS: Calcium* 9.1 mg/dL (8.4-10.6)
[2022-08-02 05:00] LABS: Troponin I* 0.02 ng/mL (0.01-0.04)
--- NOTE | 2022-08-02 06:48 | PC.NURSE ---
Shift note: The pt has been very pleasant and cooperative. He has been denying chest pain and short of breathing at rest; C/O mild short of breath with exertion. The pt has been in [place] with Spo2 in the 90s. Slight weakness noted on the left arm and leg. No facial dropping , no blurry vision, no nausea, no numbness in the left arm or leg, no headache this AM after Tylenol was given last night. The pt reported mild left eye pain last night; denied the pain this AM-Dr Fuentes was notified. The pt has been up to the BR independently with steady gait. Denied any distress throughout the night.
[2022-08-02 07:00] VITALS: PULSE 53; RESP 18; O2SAT 97
[2022-08-02 07:18] VITALS: PULSE 50
[2022-08-02] MEDS: CLOPIDOGREL 75 MG TABLET PO (09:27)
[2022-08-02 11:00] VITALS: BP 131/88; PULSE 55; RESP 18; TEMP 36.9; O2SAT 98
--- NOTE | 2022-08-02 11:42 | PM.DS1 ---
DS: Providers Provider Time Seen by Provider: 08:20 Date Seen: 08/02/22 Date of admission: 08/01/22 22:19 Primary care physician: Ruthie Wade MD Admitting Clinician: Michaela Fuentes MD Consults: 08/01/22 22:40 Consult to Nutrition [CONS] Routine Comment: Reason for consult:: Nutritional Consult Comment: DM2, CAD Consult to Physical Therapy [CONS] Routine Comment: Reason(s) for PT Consult:: Evaluate and Treat Any Restrictions?:: No Restrictions 08/01/22 22:42 Consult to Occupational Therapy [CONS] Routine Comment: Reason(s) for OT Consult:: Evaluate and Treat Any Restrictions?:: No Restrictions Attending Physician on discharge: Robyn Thapa MD Date of Discharge: 08/02/22 DS: Diagnosis Discharge Diagnosis (1) Left sided numbness: Status: Acute (2) CVA (cerebral vascular accident): Status: Acute Problem details: Multiple acute infarcts, favoring embolic source - tx: therapeutic anticoagulation (3) Bilateral carotid artery disease: Status: Chronic Problem details: + Left subclavian artery stenosis, 60-70 % by CT - continue plavix (4) PAF (paroxysmal atrial fibrillation): Status: Chronic Problem details: CHADS2-VASc >7. Last dose of amiodarone 07/31 pm - transitioning to Bisoprolol per Cardiology (starting this 08/03) (5) [facility] current use of anticoagulant therapy: Status: Chronic Problem details: On warfarin for paroxysmal atrial fibrillation with lifelong INR goal of 2-3 (6) Subtherapeutic international normalized ratio (INR): Status: Acute (7) Noncompliance with medication regimen: Status: Suspected (8) History of TIA (transient ischemic attack): Status: Chronic Problem details: Multiple with most recent 06/22/19. See [facility] ER note. (9) Dyslipidemia: Status: Chronic (10) Hypertension: Status: Chronic (11) DM (diabetes mellitus), type 2: Status: Chronic Problem details: Noninsulin dependent (12) CAD (coronary artery disease): Status: Chronic (13) CKD (chronic kidney disease), stage III: Status: Chronic (14) History of non-ST elevation myocardial infarction (NSTEMI): Status: Chronic (15) COPD (chronic obstructive pulmonary disease): Status: Chronic Problem details: Severe with fairly extensive biapical pleural thickening & scarring on 06/2019 CT scan. (16) CAD (coronary artery disease): Status: Chronic (17) History of vitamin D deficiency: Status: Chronic (18) Poor dentition: Status: Chronic Problem details: [facility] (19) GERD (gastroesophageal reflux disease): Status: Chronic DS: Summary Hospital Course Hospital Course: This is a 72-year-old male with a known history of coronary artery disease and recent NSTEMI and CABG x4 vessels 06/30/2022 who had developed new onset atrial fibrillation postoperatively and was started on metoprolol and amiodarone for rate control along with Plavix and Coumadin for prophylaxis. He was recently transition off amiodarone and metoprolol and started on bisoprolol instead. His fitter up is also working on coupons to try to transition him from Coumadin to apixaban, but he is not on it yet because it is cost prohibitive. He presented to the emergency department with concerns of generalized weakness and left-sided numbness. His INR is subtherapeutic, and he states he is taking Coumadin nightly as prescribed. CT head and CTA head were obtained and found bilateral internal carotid artery stenosis. Was admitted overnight for observation on Coumadin, Plavix and statin. He did well overnight with some improvement. He does have persistent left hand paresthesia and weakness. MRI head today shows multiple acute infarcts concerning for embolic etiology. Echocardiogram unremarkable. I spoke with Dr. Escobar from [place] [facility] who remembered seeing this patient several years ago when he had a posterior circulation stroke. Dr. Escobar noted that at that time this patient was noncompliant with his medications. Due to embolic nature of this stroke combined with severe internal carotid artery stenosis, Dr. Escobar recommended therapeutic anticoagulation in addition to Plavix. We discussed the newer anticoagulants however the patient is not able to afford these at present, so I will continue with warfarin. I spent 20 minutes with this patient up on discharge today discussing the importance of anticoagulation to prevent further embolic strokes, use of warfarin, a diet with warfarin, the risk of bleeding especially being on both warfarin and Plavix. We also discussed Plavix, amiodarone, metoprolol, and bisoprolol. I have read through his fitter up's note from 07/31/2022. 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 It is unclear if this is actually the case, because Phillip tells me today that he is actually still taking it. We talked about how bisoprolol and Toprol XL are in the same family and he should not be on both of them. He did tell me that he stops taking amiodarone. I will clarify that his medication list on discharge today. I have asked him to stop taking amiodarone and metoprolol and to start taking bisoprolol tomorrow. I have also asked him to change his warfarin dose and follow-up for add INR check on Wednesday and follow up with Dr. Wade later this week. Time Spent with Patient Time attestation: Total time spent providing and/or coordinating discharge services: Exam Narrative: Exam Narrative: General: No acute distress. Awake, alert, oriented x3. No pallor. No jaundice. Oropharynx: Clear. Mucous membranes moist. Cardiovascular: Healing sternal CABG surgical wound. Regular rate and rhythm. No murmurs, gallops, or rubs. Respiratory: Clear to auscultation bilaterally. No wheezes or crackles. Abdomen: Bowel sounds present. Soft, nondistended, nontender. Extremities: No pedal edema. Neuro: Speech is clear, no slurring or dysarthria. Romberg is negative. Cranial nerves 2-12 are intact. Extraocular movements are full. No nystagmus. No facial asymmetry. Tongue is midline. Peripheral vision and vision are grossly intact. Strength is 4/5 in left hand and arm. 5/5 in 3 other extremities. Light touch sensation is intact in face body and extremities (patient does complain that left finger feel big/swollen and tingly, even though they are not swollen, but light touch feels the same side to side). Const: Vital Signs, click to edit/add: Vital Signs - 24 hr 08/01/22 17:38 08/01/22 18:37 08/01/22 18:43 Temperature 97.7 F Pulse Rate 58 L 55 L Pulse Rate [Left B rachial] Pulse Rate [Pulse Oximeter] 59 L Pulse Rate [Right Brachial] Respiratory Rate 18 Blood Pressure 141/73 H Blood Pressure [Le ft Arm] Blood Pressure [Ri ght Arm] Blood Pressure [Ri ght Upper Arm] 130/64 Pulse Oximetry 99 97 98 Oxygen Delivery Me thod Room Air 08/01/22 19:00 08/01/22 19:02 08/01/22 19:03 Temperature Pulse Rate 54 L 54 L 55 L Pulse Rate [Left B rachial] Pulse Rate [Pulse Oximeter] Pulse Rate [Right Brachial] Respiratory Rate Blood Pressure 132/65 Blood Pressure [Le ft Arm] Blood Pressure [Ri ght Arm] Blood Pressure [Ri ght Upper Arm] Pulse Oximetry 98 98 98 Oxygen Delivery Me thod 08/01/22 19:33 08/01/22 19:34 08/01/22 22:33 Temperature 99 F Pulse Rate 56 L 55 L Pulse Rate [Left B rachial] 59 L Pulse Rate [Pulse Oximeter] Pulse Rate [Right Brachial] Respiratory Rate 18 Blood Pressure 135/56 L Blood Pressure [Le ft Arm] 147/72 H Blood Pressure [Ri ght Arm] 147/72 H Blood Pressure [Ri ght Upper Arm] Pulse Oximetry 95 95 94 Oxygen Delivery Me thod Room Air 08/01/22 22:45 08/01/22 23:10 08/01/22 23:50 Temperature 98.9 F Pulse Rate Pulse Rate [Left B rachial] 57 L Pulse Rate [Pulse Oximeter] Pulse Rate [Right Brachial] 57 L Respiratory Rate 18 18 Blood Pressure Blood Pressure [Le ft Arm] Blood Pressure [Ri ght Arm] 151/73 H Blood Pressure [Ri ght Upper Arm] Pulse Oximetry 94 94 96 Oxygen Delivery Me thod Room Air Room Air 08/01/22 23:50 08/01/22 23:50 08/02/22 00:40 Temperature Pulse Rate 53 L Pulse Rate [Left B rachial] 59 L Pulse Rate [Pulse Oximeter] Pulse Rate [Right Brachial] Respiratory Rate 18 18 Blood Pressure Blood Pressure [Le ft Arm] Blood Pressure [Ri ght Arm] Blood Pressure [Ri ght Upper Arm] Pulse Oximetry 94 Oxygen Delivery Me thod Room Air 08/02/22 03:15 08/02/22 07:18 08/02/22 07:00 Temperature 98.3 F Pulse Rate 50 L Pulse Rate [Left B rachial] 51 L Pulse Rate [Pulse Oximeter] Pulse Rate [Right Brachial] 53 L Respiratory Rate 18 18 Blood Pressure Blood Pressure [Le ft Arm] Blood Pressure [Ri ght Arm] 138/73 Blood Pressure [Ri ght Upper Arm] Pulse Oximetry 98 Oxygen Delivery Me thod Room Air 08/02/22 07:00 Temperature Pulse Rate Pulse Rate [Left B rachial] Pulse Rate [Pulse Oximeter] Pulse Rate [Right Brachial] Respiratory Rate 18 Blood Pressure Blood Pressure [Le ft Arm] Blood Pressure [Ri ght Arm] Blood Pressure [Ri ght Upper Arm] Pulse Oximetry 97 Oxygen Delivery Me thod Room Air DS: Data Data Completed and Pending Completed studies during hospitalization: 03/31/2022 5:48 p.m. EKG: Sinus bradycardia, heart rate 57 beats per minute, possible anterior infarct, age undetermined. Ordering Physician: Charity Rogel MD Date of Service: 08/01/22 Procedure(s): XR chest 1V portable Accession Number(s): [id number] cc: Charity Rogel MD; Ruthie Wade M.D.~ For Patients: As a result of the Cures Act, medical imaging exams and procedure reports are released immediately into your electronic medical record. You may view this report before your referring provider. If you have questions, please contact your health care provider. INDICATION: SOB HISTORY: Shortness of breath. COMPARISON: 07/23/2015. 07/09/2013. TECHNIQUE: Chest one-view portable. FINDINGS: Postoperative changes of a median sternotomy. There is pleural thickening in the right hemithorax, with an increase in interstitial type opacities in the right lung when compared with 07/23/2015. There is no pneumothorax or deep sulcus sign. Calcified, bilateral pleural plaques, right greater than left. The central airway is normal. There is no sizable pleural effusion. There is no pneumothorax or deep sulcus sign. Impression: 1. Bilateral calcified pleural plaques, right greater than left. 2. Interstitial type opacities in the right lung, with interval progression when compared with 07/2015. This may represent pulmonary fibrosis. Dictated by Shabbir Almonte MD @ 08/01/2022 7:12:27 PM Dictated by: Shabbir Almonte MD @ 08/01/2022 19:12:34 (Electronically Signed) Ordering Physician: Charity Rogel MD Date of Service: 08/01/22 Procedure(s): CT head/brain wo con Accession Number(s): [id number] cc: Charity Rogel MD; Ruthie Wade M.D.~ For Patients: As a result of the Cures Act, medical imaging exams and procedure reports are released immediately into your electronic medical record. You may view this report before your referring provider. If you have questions, please contact your health care provider. INDICATION: Fall. TECHNIQUE: Noncontrast CT images acquired through the brain. COMPARISON: None. FINDINGS: Prominence of the ventricles and sulci compatible with mild diffuse cerebral volume loss. No mass effect or midline shift. The solorzano white differentiation is maintained. No acute intracranial hemorrhage or pathologic extra-axial fluid collection. Chronic lacunar infarction or prominent perivascular space right internal capsule anterior limb. Atherosclerotic calcifications in the carotid siphons. The globes are symmetric. The calvarium is intact. The visualized paranasal sinuses and mastoid air cells are clear. IMPRESSION: No acute intracranial hemorrhage or mass effect. Please note that all CT scans at this facility use dose modulation, iterative reconstruction, and/or weight-based dosing when appropriate to reduce radiation dose to as low as reasonably achievable. Dictated by Matias Zuluaga MD @ 08/01/2022 7:03:33 PM (Electronically Signed) Ordering Physician: Charity Rogel MD Date of Service: 08/01/22 Procedure(s): CT angio head Accession Number(s): [id number] cc: Charity Rogel MD; Ruthie Wade M.D.~ For Patients: As a result of the Cures Act, medical imaging exams and procedure reports are released immediately into your electronic medical record. You may view this report before your referring provider. If you have questions, please contact your health care provider. DATE: 08/01/2022 CLINICAL HISTORY: Patient with focal neurological deficits. TECHNIQUE: Standard helical CT image acquisition through the intracranial circulation following intravenous administration of contrast material with bolus tracking. Multiplanar reconstructed images were performed and interpreted. COMPARISON: CT same day. FINDINGS: There is no cerebral aneurysm or large vessel occlusion. The right internal carotid artery is normal. The right middle cerebral artery and its branches are normal. The right anterior cerebral artery and its branches are normal. The left internal carotid artery is normal. The left middle cerebral artery and its branches are normal. The left anterior cerebral artery and its branches are normal. The anterior communicating artery is well visualized and appears normal. The right vertebral artery and PICA are normal. The left vertebral artery and PICA are normal. The right vertebral artery is dominant. The basilar artery is patent and appears normal. The right posterior cerebral artery is normal. The left posterior cerebral artery is normal. The visualized venous structures are patent. IMPRESSION: Normal CT angiogram of the head without intracranial aneurysm or other neurovascular abnormality. Please note that all CT scans at this facility use dose modulation, iterative reconstruction, and/or weight-based dosing when appropriate to reduce radiation dose to as low as reasonably achievable. Dictated by Suzan Lechuga MD @ 08/01/2022 10:03:55 PM (Electronically Signed) Ordering Physician: Charity Rogel MD Date of Service: 08/01/22 Procedure(s): CT angio neck Accession Number(s): [id number] cc: Charity Rogel MD; Ruthie Wade M.D.~ For Patients: As a result of the Cures Act, medical imaging exams and procedure reports are released immediately into your electronic medical record. You may view this report before your referring provider. If you have questions, please contact your health care provider. DATE: 08/01/2022 CLINICAL HISTORY: Patient with focal neurological deficits. TECHNIQUE: Standard helical CT image acquisition of the neck up to the skull base after bolus intravenous contrast enhancement. Multiplanar reconstructed images performed on a separate workstation. COMPARISON: CT same day. FINDINGS: The origins of the great vessels from the aortic arch are patent. The origin of the right vertebral artery demonstrates mild narrowing. The origin of the left vertebral artery demonstrates mild narrowing. The common carotid arteries are patent. There is a mild (<50%) stenosis at the origin of the right internal carotid artery by NASCET criteria. This is caused by non-calcified plaque with a <2mm residual lumen. There is a severe (75%) stenosis at the origin of the left internal carotid artery by NASCET criteria. This is caused by a large amount of non-calcified plaque with a 1.1mm residual lumen. The rest of the cervical segments of the internal carotid arteries are patent up to the skull base. The vertebral arteries are codominant. The cervical segments of the vertebral arteries are patent up to the skull base. The visualized lung apices demonstrate severe emphysema and biapical scarring. The thyroid gland is unremarkable. The soft tissues of the neck are unremarkable. There are degenerative changes in the cervical spine. IMPRESSION: 1. Severe (75%) stenosis at the origin of the left internal carotid artery by NASCET criteria caused by a large amount of non-calcified plaque with a 1.1mm residual lumen. 2. Mild (<50%) stenosis at the origin of the right internal carotid artery by NASCET criteria caused by non-calcified plaque with a <2mm residual lumen. 3. Mild bilateral vertebral artery origin stenosis. Please note that all CT scans at this facility use dose modulation, iterative reconstruction, and/or weight-based dosing when appropriate to reduce radiation dose to as low as reasonably achievable. Dictated by Suzan Lechuga MD @ 08/01/2022 10:00:54 PM (Electronically Signed) Ordering Physician: Michaela Fuentes M.D. Date of Service: 08/02/22 Procedure(s): MR head/brain wo con Accession Number(s): [id number] cc: Michaela Fuentes M.D.; Ruthie Wade M.D.~ For Patients: As a result of the Cures Act, medical imaging exams and procedure reports are released immediately into your electronic medical record. You may view this report before your referring provider. If you have questions, please contact your health care provider. INDICATION: CVA. TECHNIQUE: Brain MRI without contrast. The following sequences were obtained: Sagittal T1 weighted sequence. DWI and ADC mapping sequences. Axial FLAIR and WINSTON T2 weighted sequences. Susceptibility or GRE sequence. COMPARISON: Head CT from 08/01/2022. Brain MRI from 06/22/2019. FINDINGS: Multiple small foci of diffusion restriction within the right mid precentral gyrus including the hand knob, compatible with acute cortical infarcts. Additional tiny acute infarcts within the right frontal fink radiata, series / and the right temporal/occipital junction, series 05/. No acute parenchymal hemorrhage. A few likely chronic microhemorrhages within the left occipital lobe. Tiny chronic cortical infarct left middle frontal gyrus. Chronic lacunar infarcts within the bilateral basal ganglia. Multiple additional FLAIR hyperintense foci within the supratentorial white matter. no mass effect or herniation. No hydrocephalus or extra-axial collections. The pituitary gland, parasellar structures and optic chiasm are normal. A few tiny chronic infarcts within the right inferior cerebellum. All the major intracranial vascular structures demonstrate normal flow-related signal. The orbital contents are normal. No calvarial or skull base marrow replacing process. No obstructive sinus disease. No extracranial soft tissue findings. IMPRESSION: 1. Multiple acute infarcts within the right precentral gyrus including the hand knob, the right frontal fink radiata, and the right temporal/occipital junction. 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 2. Tiny chronic cortical infarct within the left middle frontal gyrus. Multiple chronic lacunar infarcts within the bilateral basal ganglia. 3. Mild chronic microvascular ischemic changes. 4. A few chronic microhemorrhages within the left occipital lobe. Dictated by Chris Morse MD @ 08/02/2022 11:22:33 AM (Electronically Signed) 08/02/2022 Echocardiogram (preliminary): Normal LV size and systolic function, normal valves. Labs on day of discharge: Labs from last 24 hours 08/02/22 08/01/22 08/01/22 03:46 18:20 18:20 WBC RBC Hgb Hct MCV MCH MCHC RDW Coeff of Hyacinth Plt Count Neut % (Auto) Lymph % (Auto) [place] % (Auto) Eos % (Auto) Baso % (Auto) Neut # (Auto) Lymph # (Auto) [place] # (Auto) Eos # (Auto) Baso # (Auto) Abs Immat Gran (auto) Imm/Tot Granulo (auto) INR Sodium Potassium Chloride Carbon Dioxide BUN Creatinine Estimated Creat Clear Estimated GFR Glucose Calcium Total Bilirubin AST ALT Alkaline Phosphatase Troponin I 0.02 Total Protein Albumin TSH 13.300 H SARS-CoV-2 (PCR) Negative SARS-CoV-2 Influenza Type A (PCR) Negative PCR FLU A Influenza Type B (PCR) Negative PCR FLU B RSV (PCR) Negative PCR RSV POC Troponin I 08/01/22 08/01/22 08/01/22 18:20 18:20 18:20 WBC 7.77 RBC 3.81 L Hgb 10.8 L Hct 33.4 L MCV 88 MCH 28 MCHC 32 RDW Coeff of Hyacinth 14.4 Plt Count 351 Neut % (Auto) 71.6 Lymph % (Auto) 16.1 L [place] % (Auto) 9.3 Eos % (Auto) 2.6 Baso % (Auto) 0.3 Neut # (Auto) 5.57 Lymph # (Auto) 1.30 [place] # (Auto) 0.70 Eos # (Auto) 0.20 Baso # (Auto) 0.02 Abs Immat Gran (auto) 0.01 Imm/Tot Granulo (auto) 0.1 INR 1.17 H Sodium Potassium Chloride Carbon Dioxide BUN Creatinine Estimated Creat Clear Estimated GFR Glucose Calcium Total Bilirubin AST ALT Alkaline Phosphatase Troponin I Total Protein Albumin TSH SARS-CoV-2 (PCR) Influenza Type A (PCR) Influenza Type B (PCR) RSV (PCR) POC Troponin I 0.00 L 08/01/22 08/01/22 08/01/22 18:20 03:46 03:46 WBC 7.39 RBC 3.63 L Hgb 10.4 L Hct 31.8 L MCV 88 MCH 29 MCHC 33 RDW Coeff of Hyacinth 14.4 Plt Count 361 Neut % (Auto) 61.1 Lymph % (Auto) 27.3 [place] % (Auto) 8.0 Eos % (Auto) 3.2 Baso % (Auto) 0.3 Neut # (Auto) 4.51 Lymph # (Auto) 2.02 [place] # (Auto) 0.60 Eos # (Auto) 0.24 Baso # (Auto) 0.02 Abs Immat Gran (auto) 0.01 Imm/Tot Granulo (auto) 0.1 INR Sodium 137 137 Potassium 4.3 4.5 Chloride 104 103 Carbon Dioxide 27 29 BUN 28 24 Creatinine 1.3 1.2 Estimated Creat Clear 45.46 49.38 Estimated GFR 59 65 Glucose 160 H 123 H Calcium 9.0 9.1 Total Bilirubin 0.6 AST 27 ALT 26 Alkaline Phosphatase 87 Troponin I Total Protein 6.9 Albumin 3.7 TSH SARS-CoV-2 (PCR) Influenza Type A (PCR) Influenza Type B (PCR) RSV (PCR) POC Troponin I 08/01/22 03:46 WBC RBC Hgb Hct MCV MCH MCHC RDW Coeff of Hyacinth Plt Count Neut % (Auto) Lymph % (Auto) [place] % (Auto) Eos % (Auto) Baso % (Auto) Neut # (Auto) Lymph # (Auto) [place] # (Auto) Eos # (Auto) Baso # (Auto) Abs Immat Gran (auto) Imm/Tot Granulo (auto) INR 1.18 H Sodium Potassium Chloride Carbon Dioxide BUN Creatinine Estimated Creat Clear Estimated GFR Glucose Calcium Total Bilirubin AST ALT Alkaline Phosphatase Troponin I Total Protein Albumin TSH SARS-CoV-2 (PCR) Influenza Type A (PCR) Influenza Type B (PCR) RSV (PCR) POC Troponin I Discharge Plan Discharge Disposition: Home, Self-Care Date of Admission: 08/01/22 22:19 Attending Provider on Discharge: Robyn Thapa Primary Care Provider: Ruthie Wade Condition: Stable Anticipated Discharge Date/Time: 08/02/22 14:00 Discharge Medications: Continued acetaminophen [Tylenol] 325 mg capsule 650 mg PO Q6H PRN amlodipine 10 mg tablet 10 mg PO QDAY atorvastatin 80 mg tablet 80 mg PO QDAY ascorbic acid (vitamin C) 500 mg capsule 500 mg PO DAILY vitamin B complex Tablet 1 tab PO QDAY glipizide 5 mg tablet 5 mg PO QDAY magnesium 250 mg tablet 250 mg PO DAILY zinc sulfate 50 mg zinc (220 mg) capsule 50 mg PO DAILY bisoprolol fumarate 5 mg tablet 2.5 mg PO DAILY Label Comments: TAKE 1/2 TABLET (2.5 MG) BY MOUTH ONCE DAILY. clopidogrel 75 mg tablet 75 mg PO QDAY Qty: 30 0RF Changed warfarin 2.5 mg tablet 2.5 mg PO DAILY Qty: 30 0RF Protocol: Dose Management Condition: Wednesday Dose/Route: 1.25 mg Instruction: 0.5 x 2.5 mg tablets Condition: Wednesday Dose/Route: 2.5 mg Instruction: 1 x 2.5 mg tablet Condition: Wednesday Dose/Route: 1.25 mg Instruction: 0.5 x 2.5 mg tablets Condition: Wednesday Dose/Route: 2.5 mg Instruction: 1 x 2.5 mg tablet Condition: Dose/Route: 1.25 mg Instruction: 0.5 x 2.5 mg tablets Condition: Wednesday Dose/Route: 2.5 mg Instruction: 1 x 2.5 mg tablet Condition: Wednesday Dose/Route: 1.25 mg Instruction: 0.5 x 2.5 mg tablets Protocol Text: Adjustment Start Date: 07/30/22 INR Value: 1.4 INR Date: 07/30/22 Recheck Date: 08/06/22 Discontinued warfarin 2.5 mg tablet 1.25 mg PO [facility] Protocol: Dose Management Condition: Wednesday Dose/Route: 1.25 mg Instruction: 0.5 x 2.5 mg tablets Condition: Wednesday Dose/Route: 2.5 mg Instruction: 1 x 2.5 mg tablet Condition: Wednesday Dose/Route: 1.25 mg Instruction: 0.5 x 2.5 mg tablets Condition: Wednesday Dose/Route: 2.5 mg Instruction: 1 x 2.5 mg tablet Condition: Dose/Route: 1.25 mg Instruction: 0.5 x 2.5 mg tablets Condition: Wednesday Dose/Route: 2.5 mg Instruction: 1 x 2.5 mg tablet Condition: Wednesday Dose/Route: 1.25 mg Instruction: 0.5 x 2.5 mg tablets Protocol Text: Adjustment Start Date: 07/30/22 INR Value: 1.4 INR Date: 07/30/22 Recheck Date: 08/06/22 Rx Instructions: MWF take 2.5mg, take 1.25mg ROW Discharge Orders: Discharge Order (Routine); Ordered 08/02/22 Ordered By: Robyn Thapa Additional Instructions: INR Wednesday, goal 2-3 for afib, embolic stroke, [facility] clinic, results to [facility]. Stop amiodarone and metoprolol (Toprol XL). Activity Level: Activity as Tolerated Activity Detail: Avoid activities that put you at risk for bleeding, trauma or falls. Discharge Diet: Diabetic, Heart Healthy (2 gm sodium, low fat) and Other Diet Detail: warfarin diet Follow Up Appointments: Ruthie Wade MD [Primary Care Provider] - (3-5 days) [facility]: [facility]
[2022-08-02 15:00] VITALS: RESP 18; O2SAT 98
--- NOTE | 2022-08-02 18:41 | PC.NURSE ---
Discharge note: Pt friendly and cooperative. Denies any return of numbness or weakness. Denies vision changes, CP or pressure. VS WNL and LS COA. MRI and ECHO today. Pt was discharged to home via wheelchair in the care of his at 1600. Pt and his verbalized understanding of discharge instructions and follow up appointments.
--- NOTE | 2022-08-02 22:16 | CRLHL7_ITS ---
For Patients: As a result of the Century Cures Act, medical imaging exams and procedure reports are released immediately into your electronic medical record. You may view this report before your referring provider. If you have questions, please contact your health care provider. INDICATION: CVA. TECHNIQUE: Brain MRI without contrast. The following sequences were obtained: Sagittal T1 weighted sequence. DWI and ADC mapping sequences. Axial FLAIR and WINSTON T2 weighted sequences. Susceptibility or GRE sequence. COMPARISON: Head CT from 08/01/2022. Brain MRI from 06/22/2019. FINDINGS: Multiple small foci of diffusion restriction within the right mid precentral gyrus including the hand knob, compatible with acute cortical infarcts. Additional tiny acute infarcts within the right frontal fink radiata, series 5/41 and the right temporal/occipital junction, series 05/37. No acute parenchymal hemorrhage. A few likely chronic microhemorrhages within the left occipital lobe. Tiny chronic cortical infarct left middle frontal gyrus. Chronic lacunar infarcts within the bilateral basal ganglia. Multiple additional FLAIR hyperintense foci within the supratentorial white matter. no mass effect or herniation. No hydrocephalus or extra-axial collections. The pituitary gland, parasellar structures and optic chiasm are normal. A few tiny chronic infarcts within the right inferior cerebellum. All the major intracranial vascular structures demonstrate normal flow-related signal. The orbital contents are normal. No calvarial or skull base marrow replacing process. No obstructive sinus disease. No extracranial soft tissue findings. IMPRESSION: 1. Multiple acute infarcts within the right precentral gyrus including the hand knob, the right frontal fink radiata, and the right temporal/occipital junction. 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 2. Tiny chronic cortical infarct within the left middle frontal gyrus. Multiple chronic lacunar infarcts within the bilateral basal ganglia. 3. Mild chronic microvascular ischemic changes. 4. A few chronic microhemorrhages within the left occipital lobe. Dictated by Chris Morse MD @ 08/02/2022 11:22:33 AM (Electronically Signed)
== END 2022-08-02 18:44 | disposition home or self-care (01) ==
LOC: ED 21:14 → MEDSURG 22:20
PROVIDERS: Admitting Provider Family Medicine; Emergency Provider Emergency Medicine; PCP Family Medicine; Visit Provider Family Medicine
DX: I63.9 Cerebral infarction, unspecified (principal); I77.9 Disorder of arteries and arterioles, unspecified; I48.0 Paroxysmal atrial fibrillation; I25.10 Atherosclerotic heart disease of native coronary artery without angina pectoris; Z79.01 Long term (current) use of anticoagulants; I25.2 Old myocardial infarction; Z91.14 Patient's other noncompliance with medication regimen; Z86.73 Personal history of transient ischemic attack (TIA), and cerebral infarction without residual deficits; E78.5 Hyperlipidemia, unspecified; J44.9 Chronic obstructive pulmonary disease, unspecified; E11.22 Type 2 diabetes mellitus with diabetic chronic kidney disease; I12.9 Hypertensive chronic kidney disease with stage 1 through stage 4 chronic kidney disease, or unspecified chronic kidney disease; N18.30 Chronic kidney disease, stage 3 unspecified; Z86.39 Personal history of other endocrine, nutritional and metabolic disease; K08.9 Disorder of teeth and supporting structures, unspecified; K21.9 Gastro-esophageal reflux disease without esophagitis; R79.1 Abnormal coagulation profile; Z87.891 Personal history of nicotine dependence; M62.81 Muscle weakness (generalized); R20.0 Anesthesia of skin; Z20.822 Contact with and (suspected) exposure to COVID-19; Z66 Do not resuscitate
CPT/HCPCS: 36415; 70450; 70496; 70498; 70551; 71045; 80048; 80053; 82962; 84443; 84484; 85025; 85610; 87502; 87634; 87635; 93005; 93306; 94761; 96372; 97110; 97116; 97162; 97165; 99284; 99285; G0378; A9270; G0379; J1650; Q9967

== ENCOUNTER 2022-08-25 14:33 | Outpatient (CLI) | payer MEDICARE, SELFPAY ==
[2022-08-25 18:01] LABS: Free T4 Free Thyroxine* 0.85 ng/dL (0.70-1.85)
== END 2022-08-25 14:34 | disposition home or self-care (01) ==
LOC: NFLDREF 14:35
PROVIDERS: PCP Family Medicine; Visit Provider Family Medicine
DX: Z00.00 Encounter for general adult medical examination without abnormal findings (principal); R79.89 Other specified abnormal findings of blood chemistry; R53.83 Other fatigue; I10 Essential (primary) hypertension; I25.10 Atherosclerotic heart disease of native coronary artery without angina pectoris; E11.9 Type 2 diabetes mellitus without complications; I48.0 Paroxysmal atrial fibrillation
CPT/HCPCS: 84439; 84443

== ENCOUNTER 2022-11-09 14:42 | Outpatient (CLI) | payer MEDICARE, SELFPAY ==
[2022-11-09 19:23] LABS: Free T4 Free Thyroxine* 1.09 ng/dL (0.70-1.85)
== END 2022-11-09 14:43 | disposition home or self-care (01) ==
LOC: NFLDREF 14:42
PROVIDERS: PCP Family Medicine; Visit Provider Family Medicine
DX: E03.9 Hypothyroidism, unspecified (principal)
CPT/HCPCS: 84439; 84443

== ENCOUNTER 2022-12-22 16:15 | Outpatient (CLI) | payer MEDICARE, SELFPAY | END 2022-12-22 16:16 | disposition home or self-care (01) | LOC: NFLDREF 12-23 05:52 | PROVIDERS: PCP Family Medicine; Referring Provider Family Medicine; Visit Provider Family Medicine | DX: E03.9 Hypothyroidism, unspecified (principal); E11.9 Type 2 diabetes mellitus without complications | CPT/HCPCS: 84443 ==

== ENCOUNTER 2023-01-14 13:34 | Outpatient (CLI) | payer MEDICARE, SELFPAY ==
--- NOTE | 2023-01-14 14:00 | CRLHL7_ITS ---
For Patients: As a result of the Century Cures Act, medical imaging exams and procedure reports are released immediately into your electronic medical record. You may view this report before your referring provider. If you have questions, please contact your health care provider. DUPLEX ARTERIAL ULTRASOUND BILATERAL LOWER EXTREMITIES, 01/14/2023 CLINICAL HISTORY: Bilateral toe pain. COMPARISON: None. TECHNIQUE: The bilateral lower extremity arteries were examined per exam specific protocol with solorzano-scale ultrasound, color-flow and Doppler spectral analysis. Peak systolic velocities (PSV), Doppler waveform quality and velocity ratios, if applicable, were documented at sites per exam specific protocol. FINDINGS: RIGHT: PSV (cm/sec). Waveform (T-Tri, B-Bi, M-Oconto). EMERGENCY SERVICE RESTORER: 158. T. DFA: 83. B. FA PRX: 153. B. FA MID: 96. T. FA DISTAL: 38. T. POP A: 56. T. TERESA A: 40. M. BUFFER NICKEL: 95. M. LOIS: 15. M. DPA: 11. M. LEFT: PSV (cm/sec). Waveform (T-Tri, B-Bi, M-Oconto). EMERGENCY SERVICE RESTORER: 150. T. DFA: 194. T. FA PRX: 106. B. FA MID: 113. T. FA DISTAL: 52. T. POP A: 76. T. TERESA A: 89. M. BUFFER NICKEL: 77. M. LOIS: 39. M. DPA: 17. M. Predominantly multiphasic waveforms are seen throughout the bilateral lower extremity arterial systems with monophasic waveforms noted in the pedal arteries. No hemodynamically-significant stenoses or occlusions are identified. IMPRESSION: Predominantly multiphasic waveforms throughout both lower extremity arterial systems with monophasic waveforms in the pedal arteries. No hemodynamically-significant stenoses or occlusions are identified. SANDEEP PRIETO M.D. [email or web address] Transcribed: 12:[address]/Dictated by: Sandeep Prieto MD @ 01/15/2023 11:49:00 AM (Electronically Signed)
== END 2023-01-14 13:35 | disposition home or self-care (01) ==
LOC: US 13:35
PROVIDERS: PCP Family Medicine; Visit Provider Family Medicine
DX: M79.674 Pain in right toe(s) (principal); M79.675 Pain in left toe(s); S91.309A Unspecified open wound, unspecified foot, initial encounter; I73.9 Peripheral vascular disease, unspecified
CPT/HCPCS: 93926

== ENCOUNTER 2023-03-11 11:03 | Outpatient (CLI) | payer MEDICARE, SELFPAY | END 2023-03-11 11:04 | disposition home or self-care (01) | LOC: NFLDREF 11:05 | PROVIDERS: PCP Family Medicine; Visit Provider Family Medicine | DX: Z01.818 Encounter for other preprocedural examination (principal); E03.9 Hypothyroidism, unspecified; I12.9 Hypertensive chronic kidney disease with stage 1 through stage 4 chronic kidney disease, or unspecified chronic kidney disease; E11.22 Type 2 diabetes mellitus with diabetic chronic kidney disease; N18.30 Chronic kidney disease, stage 3 unspecified | CPT/HCPCS: 80048; 84443 ==

== ENCOUNTER 2023-05-04 13:15 | Outpatient (CLI) | payer MEDICARE, SELFPAY | END 2023-05-04 13:16 | disposition home or self-care (01) | LOC: NFLDREF 13:16 | PROVIDERS: PCP Family Medicine; Visit Provider Internal Medicine | DX: I10 Essential (primary) hypertension (principal) | CPT/HCPCS: 80048 ==

== ENCOUNTER 2023-09-27 09:35 | Outpatient (CLI) | payer MEDICARE, SELFPAY ==
--- OUTSIDE RECORDS SUMMARY | 2023-09-29 06:51 | XMS_ITS ---
Author Name Unknown Organization [facility] Address [address] [place] [address] Care Team Providers Care Rn Pain Management Name Role Phone Unavailable Unavailable Unavailable Surgery Details Not on file Complications Check Surgery Details section. Procedure Estimated Blood Loss Check Surgery Details section. Procedure Findings Check Surgery Details section. Procedure Specimens Taken Check Surgery Details section.
--- OUTSIDE RECORDS SUMMARY | 2023-09-29 06:51 | XMS_ITS | Referral Summary ---
Author Name Unknown Organization [facility] Address [address] [place] [address] Care Team Providers Care It Professional Name Role Phone Unavailable Primary Care Provider Unavailabl e Source Comments Patient records contain information from all sites at [facility]. For routine questions regarding patient records, call [phone] during business hours, M-F 8:00 AM - 5:00 PM Central Time. Record requests for emergency care only can be directed to [phone] at any time.[facility] Medications Medication Sig Dispensed Refills Start Date End Date Status acetaminophen (TYLENOL) 325 mg tablet Take 325 mg by mouth every 4 (four) hours as needed for pain. 0 Active amiodarone (PACERONE) 400 mg tablet Take 400 mg by mouth 2 (two) times a day. 0 Active amLODIPine-atorvastat in (CADUET) 10-10 mg per tablet Take 1 tablet by mouth daily. 0 Active ascorbic acid, vitamin C, (VITAMIN C) 500 mg tablet Take 500 mg by mouth daily. 0 Active atorvastatin (LIPITOR) 80 mg tablet Take 80 mg by mouth daily. 0 Active clopidogreL (PLAVIX) 75 mg tablet Take 75 mg by mouth daily. 0 Active glipiZIDE (GLUCOTROL) 5 mg tablet Take 5 mg by mouth every morning before breakfast. 0 Active furosemide (LASIX) 20 mg tablet Take 20 mg by mouth daily. 0 Active metoprolol succinate (TOPROL-XL) 50 mg 24 hr tablet Take 50 mg by mouth daily. Do not crush or chew. 0 Active warfarin (COUMADIN) 2.5 mg tablet Take 2.5 mg by mouth. Take as directed per After Visit Summary. 0 Active zinc sulfate (ZINCATE) 220 (50 mg zinc) capsule Take by mouth daily with breakfast. 0 Active Social History Tobacco Use Types Packs/Day Years Used Date Smoking Tobacco: Never Assessed PHQ-2 Answer Date Recorded PHQ-2 Score 0 07/29/2022 Depression Answer Date Recor ded PHQ-9 Total Score (max 27) 2 07/29 Nutrition Answer Date Recorded Nutrition: EVOO Fat Source Unknown 07/24 Nutrition: Servings of Fruits/Vegetables per Day Not on file 07/24/2022 Dental Answer Date Recorded Dental: Regular Dentist Unknown 07/24/20 Sex and Gender Information Value Date Recorded Sex Assigned at Not on file Gender Identity Not on file Sexual Orientation Not on file Last Filed Vital Signs Vital Sign Reading Time Taken Comments Blood Pressure 120/64 07/29/2022 2:17 PM [employer] Pulse - - Temperature - - Respiratory Rate - - Oxygen Saturation - - Inhaled Oxygen Concentration - - Weight 60.8 kg (134 lb) 07/29/2022 2:00 PM [employer] Height 172.7 cm (5' 7.99) 07/29/2022 2:00 PM CS T Body Mass Index 20.38 07/29/2022 2:00 PM [employer] Plan of Treatment Not on file
--- OUTSIDE RECORDS SUMMARY | 2023-09-29 06:51 | XMS_ITS | Clinical Summary ---
Author Name Unknown Organization [facility] Address [place], [place] [address] Care Team Providers Care Railcar Mechanic Name Role Phone Chris Felder MD Primary Care Provider Allergies No known active allergies Medications Medication Sig Dispensed Refills Start Date End Date Status multivitamin (MVI) tablet Take 1 tablet by mouth once daily. 0 07/17/2010 Active vitamin B complex (B COMPLEX 1) tablet Take 1 tablet by mouth once daily. 0 12/11/2016 Active cholecalciferol (VITAMIN D3) 1,000 unit tablet Take 2,000 Units by mouth once daily. 0 Active bisoprolol (ZEBETA) 5 mg tabletIndications: Atrial fibrillation, unspecified type (HC),Screening for AAA (abdominal aortic aneurysm),Coronary artery disease, unspecified vessel or lesion type, unspecified whether angina present, unspecified whether [place] or transplanted heart,S/P CABG (coronary artery bypass graft) Take 0.5 Tablets (2.5 mg) by mouth once daily. 30 Tablet 2 2022 Active amLODIPine (NORVASC) 10 mg tablet Take 10 mg by mouth once daily. 0 12/01/2022 Active clopidogreL (PLAVIX) 75 mg tablet TAKE ONE TABLET(75MG) BY MOUTH EVERY DAY 0 12/01/2022 Active levothyroxine (SYNTHROID) 75 mcg tablet Take 75 mcg by mouth once daily. 0 12/24/2022 Active glipiZIDE (GLUCOTROL) 5 mg tablet Take 5 mg by mouth two times daily before meals. 0 Active Alpha Lipoic Acid 200 mg tab Take 200 mg by mouth two times daily. 0 Active ascorbic acid, vitamin C, (Vitamin C) 500 mg tablet Take 500 mg by mouth once daily. 0 Active magnesium 250 mg tab Take 250 mg by mouth once daily. 0 Active potassium gluconate 600 mg (99 mg) tab Take 1 Tablet by mouth once daily. 0 Active zinc gluconate 50 mg tablet Take 50 mg by mouth once daily. 0 Active apixaban (ELIQUIS) 5 mg tabletIndications: TIA (transient ischemic attack),Atrial fibrillation, unspecified type (HC) Take 1 Tablet (5 mg) by mouth two times daily. 180 Tablet 3 04/08/2023 Active acetaminophen (TYLENOL EXTRA STRGTH) 500 mg tablet Take 1 Tablet (500 mg) by mouth every 6 hours if needed for Pain. Max acetaminophen dose: 4000mg in 24 hrs. 0 04/29/2023 Active HYDROcodone-acetam inophen (NORCO) 5-325 mg per tabletIndications: Carotid stenosis, asymptomatic, left Take 1 Tablet by mouth every 6 hours if needed for Pain. Max acetaminophen dose: 4000 mg in 24 hrs. For severe pain. 15 Tablet 0 04/29/2023 Active sennosides-docusat e (SENOKOT S) (8.6-50 mg) tabletIndications: Carotid stenosis, asymptomatic, left Take 2 Tablets by mouth 2 times daily if needed for Constipation. 40 Tablet 0 04/29/2023 Active lisinopriL (PRINIVIL; ZESTRIL) 20 mg tabletIndications: HTN (hypertension) Take 1 Tablet (20 mg) by mouth once daily. 30 Tablet 1 04/30/2023 Active hydrALAZINE (APRESOLINE) 25 mg tabletIndications: HTN (hypertension) Take 1 Tablet (25 mg) by mouth every 6 hours if needed for SBP >140. 20 Tablet 0 04/29/2023 Active Active Problems Problem Noted Date Diagnosed Date Carotid stenosis, asymptomatic, left 04/27/2023 CAD (coronary artery disease) 04/27/2023 Acute respiratory failure with hypoxia 3 Chronic renal disease, stage III 04/06/2020 Overview: CREATININE 0.72 - 1.25 mg/dL 1.52High 1.54High BUN/CREAT RATIO ? 10 - 20 ? 12 15 GFR if >60 ml/min/1.73m2 56Low 55Low GFR if not >60 ml/min/1.73m2 46Low 45Low TIA (transient ischemic attack) 06/22/2019 History of stroke 06/22/2019 COPD exacerbation 01/11/2017 Type II diabetes mellitus with complication 07/21 HTN (hypertension) 2015 Tobacco use disorder 07/25/2008 Hyperlipidemia LDL goal <70 Encounters Date Type Department Care Team Description 09/23/2023 Telephone [facility] [address] [place] [id number] Virgilio Reddy MD Appointment Request 09/08/2023 Telephone [facility] [address] [place] [id number] Virgilio Reddy MD Surgery Scheduled 09/05/2023 Travel 09/02/2023 1:30 PM SALVAGE WINDER Office Visit [facility] [address] [place] [address] Virgilio Reddy MD Follow Up (Coronary artery disease, unspecified vessel or lesion type, unspecified whether angina present, unspecified whether kot[place] or transplanted heart) 09/02/2023 Travel 08/30/2023 1:45 PM SALVAGE WINDER Orders Only [facility] [address] [place] [address] 1 scan: (1-Ord) US ARTERIAL LOWER EXTREMITY W PARIS BILATERAL ([id number]) 08/30/2023 1:00 PM SALVAGE WINDER Orders Only [facility] [address] [place] [address] 1 scan: (1-Ord) US CAROTID DUPLEX BILATERAL ([id number]) 08/30/2023 Travel 08/17/2023 2:00 PM SALVAGE WINDER Office Visit [facility] [address] [place] [address] Job Morrell DPM Follow Up (Bilateral foot-gangrene ) 08/17/2023 Travel from Last 3 Months Family History * Patient is adopted Medical History Relation Name Comments Alcoholism Brother 1 Cancer Brother 1 Pancreatic canc er COPD Brother 3 Heart Disease Neg. Relation Name Status Comments Brother 1 Brother 2 Brother 3 Daughter Alive Father Mother Neg. Son Alive Social History Tobacco Use Types Packs/Day Years Used Date Smoking Tobacco: Every Day Cigarettes 0.5 56 Started: 1967 Smokeless Tobacco: Never Tobacco Cessation:Ready to Q uit: Not Asked; Counseling Given: Yes Comments:8 cigarettes/day Alcohol Use Standard Drinks/Week Comments No 0 (1 standard drink = 0.6 oz pur e alcohol) PHQ-2 Answer Date Recorded PHQ-2 TOTAL SCORE 0 04/03/2020 Social Connections Answer Date Recorded Frequency of Communication with Friends and Fami ly Not on file 2022 Financial Resource Strain Answer Date R ecorded Difficulty of Paying Living Expenses Not on file 09/20/2021 Difficulty of Paying Living Expenses Not on file 09/20/2021 Sex and Gender Information Value Date Recorded Sex Assigned at Not on file Gender Identity Not on file Sexual Orientation Not on file Obstetrics History Last Filed Vital Signs Vital Sign Reading Time Taken Comments Blood Pressure 160/89 09/02/2023 1:28 PM [facility]VAGE WINDER Pulse 60 09/02/2023 1:28 PM [facility]AGE WINDER Temperature 36.8 ??C (98.2 ??F) 04/29/2023 11:35 AM C DT Respiratory Rate 16 04/29/2023 11:35 AM CDT Oxygen Saturation 100% 09/02/2023 1:28 PM [facility]VAGE WINDER Inhaled Oxygen Concentration - - Weight 66.7 kg (147 lb) 09/02/2023 1:28 PM [facility]VAGE WINDER Height 175.3 cm (5' 9) 04/27/2023 6:41 AM CDT Body Mass Index 21.71 04/27/2023 6:41 AM CDT Plan of Treatment Upcoming Encounters Date Type Department Care Team (Late st Contact Info) Description 10/07/2023 12:00 PM SALVAGE WINDER Appointment [facility] [address] [place] [address] Virgilio Reddy MD [address] [facility] [address] [place] [address] 11/01/2023 2:00 PM SALVAGE WINDER Orders Only [facility] [address] [place] [address] 12/02/2023 1:00 PM CDT Office Visit [facility] [address] [place] [address] Virgilio Reddy MD [address] [facility] [address] [place] [address] Health Maintenance Due Date Last Done Comments COVID-19 vaccine series (#1) 01/28/1953 Pneumococcal series for age 65+ (1 of 2 - PCV) 1958 Tdap 1963 Tetanus booster 1972 Colonoscopy through age 75 1997 Zoster (shingles) series for age 50+ (1 of 2) 2002 Medicare Wellness for age 65+ 2017 Depression screening for age 12+ 04/03/2021 04/03/2020, 03/22/2019, 03/22/2019, Additional history exists Influenza for age 65+ 05/21/2023 BMI (ht and wt on same day) for age 18+ 01/29/2024 01/28/2023, 2022, 04/03/2020, Additional history exists Lipids for age 45-75 09/28/2024 09/28/2019, 03/22/2019, 06/27/2018, Additional history exists Hepatitis C screening for ag e 18-79 Completed 2015 AAA screening age 65-74 Completed 02/03/2023 Medical Devices Implanted Type Area Internal Combustion Engineer Device Identifier Shelf Expiration Date Model / Serial / Lot Tissue Pericardium 0.8x8cm Xenosure - [id number] Implanted:Qty: 1 on 04/27/2023 by Virgilio Reddy MD at [facility] Left: Carotid Artery [employer] 10/17/2028 0.8P8 / / [id number] Procedures Procedure Name Priority Date/Time Associated Diagnosis Comments US ARTERIAL LOWER EXTREMITY W PARIS BILATERAL Routine 08/30/2023 3:17 PM SALVAGE WINDER PAD (peripheral artery disease) (HC) US CAROTID DUPLEX BILATERAL Routine 08/30/2023 3:17 PM [facility]VAGE WINDER Carotid stenosis, asymptomatic, left from Last 3 Months Results * US ARTERIAL LOWER EXTREMITY W PARIS BILATERAL (08/30/2023 3:17 PM [facility]VAGE WINDER) Anatomical Region Laterality Modality LEGS Ultrasound 08/30/2023 11:5 5 AM SALVAGE WINDER Narrative 09/01/2023 1:14 PM [facility]VAGE WINDER VASCULAR ULTRASOUND REPORT PHILLIP HERNANDEZ Accession#: ?? [id number] : ?1950 Study Date: ?? 08/30/2023 11:55:18 AM Age: ?73 years ?? Tech: ? BVB Gender: M ?Referring MD: JAMEY ARORA Site: [facility] Study performed: ?Lower extremity duplex US, resting PARIS, (bilateral). Indication for study: Follow-up known PAD TECHNIQUE: Lower/upper extremity arteries were examined per exam protocol by duplex ultrasound, color-flow and spectral Doppler. Peak systolic velocities (PSV), Doppler waveform quality, velocity ratios and vessel size in cm, were documented at protocol specific sites. Physiologic data including segmental pressures, ankle/brachial index (PARIS), digit PPG recordings, laser Doppler flowmetry, transcutaneous oximetry, and digit temperatures were documented at sites per exam protocol and test requirements. IMPRESSION: 1. Resting ankle-brachial index is moderately reduced on the right at 0.54 and is borderline on the left at 0.93. 2. Evaluation of the lower right extremity shows 75-99% stenosis in the tibioperoneal trunk artery. 3. Evaluation of the lower left extremity shows 75-99% stenosis in the tibioperonal trunk artery. COMPARISON: Compared to prior study 04/05/23, ABIs worse on the right and better on the left. FINDINGS: 29:1 velocity shift right TP trunk, 7.8:1 velocity shift left TP trunk. There is 75-99% stenosis in the right tibioperoneal trunk. There is 75-99% stenosis in the left tibioperoneal trunk. +--------+ + +--------+-----+ RIGHT ?? Velocity cm/s Phasicity ?? Stenosis Ratio +--------+ + +--------+-----+ TECHNICAL SUPPORT 1 SOFTWARE ENGINEER PRX ? 80 ? multiphasic ? +--------+ + +--------+-----+ TECHNICAL SUPPORT 1 SOFTWARE ENGINEER DST ? 79 ? multiphasic ? +--------+ + +--------+-----+ PFA ? 100 ? multiphasic ? +--------+ + +--------+-----+ SFA PRX ? 73 ? multiphasic ? +--------+ + +--------+-----+ SFA MID ? 72 ? multiphasic ? +--------+ + +--------+-----+ SFA DST ? 26 ? multiphasic ? +--------+ + +--------+-----+ SEYMOUR PRX ? 34 ? multiphasic ? +--------+ + +--------+-----+ SEYMOUR DST ? 16 ? monophasic ? +--------+ + +--------+-----+ TPT ? 466 ? stenotic ?? 75-99% 29.1 +--------+ + +--------+-----+ PROGRAM MANAGER RN PRX ? 119 ? monophasic ? +--------+ + +--------+-----+ PROGRAM MANAGER RN DST ? 36 ? monophasic ? +--------+ + +--------+-----+ DPA ?9 ? monophasic ? +--------+ + +--------+-----+ +--------+ + +--------+-----+ LEFT ? Velocity cm/s Phasicity ?? Stenosis Ratio +--------+ + +--------+-----+ TECHNICAL SUPPORT 1 SOFTWARE ENGINEER PRX ? 126 ? multiphasic ? +--------+ + +--------+-----+ TECHNICAL SUPPORT 1 SOFTWARE ENGINEER DST ? 127 ? multiphasic ? +--------+ + +--------+-----+ PFA ? 197 ? multiphasic ? +--------+ + +--------+-----+ SFA PRX ? 112 ? multiphasic ? +--------+ + +--------+-----+ SFA MID ? 132 ? multiphasic ? +--------+ + +--------+-----+ SFA DST ? 49 ? multiphasic ? +--------+ + +--------+-----+ SEYMOUR PRX ? 49 ? multiphasic ? +--------+ + +--------+-----+ SEYMOUR DST ? 56 ? multiphasic ? +--------+ + +--------+-----+ TPT ? 436 ? stenotic ? 75-99% 7.8 ?? +--------+ + +--------+-----+ PROGRAM MANAGER RN PRX ? 95 ? +--------+ + +--------+-----+ PROGRAM MANAGER RN DST ? 62 ? monophasic ? +--------+ + +--------+-----+ DPA ? 11 ? monophasic ? (retrograde) ? +--------+ + +--------+-----+ Criteria: Stenosis ?V. Ratio Mild ?<50% ?<2.0 Moderate ?? 50-74% ?> or = 2.0 Severe ? 75-99% ?> or = 4.0 Occluded ?100% ?? no detectable flow Pressures +-----+ +--------+ +-----+ ? RIGHT (mmHg) ? LEFT (mmHg) ? +-----+ +--------+ +-----+ Index ?156 ? Brachial ?150 ? Index +-----+ +--------+ +-----+ 0.54 ? 85 ?PROGRAM MANAGER RN ?145 ? 0.93 +-----+ +--------+ +-----+ 0.43 ? 67 ?DPA ?118 ? 0.76 +-----+ +--------+ +-----+ Nicolas Worthington MD. [facility] [facility] Electronically signed on 09/01/2023 1:14:56 PM This study was performed and interpreted by a service accredited by the Intersocietal Accreditation Commission (IAC/Vascular), [email or web address] Report generated by [facility]. ??Final ?? Procedure Note Nicolas Worthington MD - 09/01/2023 VASCULAR ULTRASOUND REPORT PHILLIP HERNANDEZ : 1950 Study Date: 08/30/2023 11:55:18 AM Age: 73 years Tech: BVB Gender: M Referring MD: JAMEY ARORA Site: [facility] Study performed: Lower extremity duplex US, resting PARIS,(bilateral). Indication for study: Follow-up known PAD TECHNIQUE: Lower/upper extremity arteries were examined per exam protocol by duplexultrasound, color-flow and spectral Doppler. Peak systolic velocities(PSV), Doppler waveform quality, velocity ratios and vessel size in cm,were documented at protocol specific sites. Physiologic data includingsegmental pressures, ankle/brachial index (PARIS), digit PPG recordings,laser Doppler flowmetry, transcutaneous oximetry, and digit temperatureswere documented at sites per exam protocol and test requirements. IMPRESSION: 1. Resting ankle-brachial index is moderately reduced on the right at0.54 and is borderline on the left at 0.93. 2. Evaluation of the lower right extremity shows 75-99% stenosis in thetibioperoneal trunk artery. 3. Evaluation of the lower left extremity shows 75-99% stenosis in thetibioperonal trunk artery. COMPARISON: Compared to prior study 04/05/23, ABIs worse on the right and better on theleft. FINDINGS: 29:1 velocity shift right TP trunk, 7.8:1 velocity shift left TP trunk. There is 75-99% stenosis in the right tibioperoneal trunk. There is 75-99% stenosis in the left tibioperoneal trunk. +--------+ + +--------+-----+ RIGHT Velocity cm/s Phasicity Stenosis Ratio +--------+ + +--------+-----+ TECHNICAL SUPPORT 1 SOFTWARE ENGINEER PRX 80 multiphasic +--------+ + +--------+-----+ TECHNICAL SUPPORT 1 SOFTWARE ENGINEER DST 79 multiphasic +--------+ + +--------+-----+ PFA 100 multiphasic +--------+ + +--------+-----+ SFA PRX 73 multiphasic +--------+ + +--------+-----+ SFA MID 72 multiphasic +--------+ + +--------+-----+ SFA DST 26 multiphasic +--------+ + +--------+-----+ SEYMOUR PRX 34 multiphasic +--------+ + +--------+-----+ SEYMOUR DST 16 monophasic +--------+ + +--------+-----+ TPT 466 stenotic 75-99% 29.1 +--------+ + +--------+-----+ PROGRAM MANAGER RN PRX 119 monophasic +--------+ + +--------+-----+ PROGRAM MANAGER RN DST 36 monophasic +--------+ + +--------+-----+ DPA 9 monophasic +--------+ + +--------+-----+ +--------+ + +--------+-----+ LEFT Velocity cm/s Phasicity Stenosis Ratio +--------+ + +--------+-----+ TECHNICAL SUPPORT 1 SOFTWARE ENGINEER PRX 126 multiphasic +--------+ + +--------+-----+ TECHNICAL SUPPORT 1 SOFTWARE ENGINEER DST 127 multiphasic +--------+ + +--------+-----+ PFA 197 multiphasic +--------+ + +--------+-----+ SFA PRX 112 multiphasic +--------+ + +--------+-----+ SFA MID 132 multiphasic +--------+ + +--------+-----+ SFA DST 49 multiphasic +--------+ + +--------+-----+ SEYMOUR PRX 49 multiphasic +--------+ + +--------+-----+ SEYMOUR DST 56 multiphasic +--------+ + +--------+-----+ TPT 436 stenotic 75-99% 7.8 +--------+ + +--------+-----+ PROGRAM MANAGER RN PRX 95 +--------+ + +--------+-----+ PROGRAM MANAGER RN DST 62 monophasic +--------+ + +--------+-----+ DPA 11 monophasic (retrograde) +--------+ + +--------+-----+ Criteria: Stenosis V. Ratio Mild <50% <2.0 Moderate 50-74% > or = 2.0 Severe 75-99% > or = 4.0 Occluded 100% no detectable flow Pressures +-----+ +--------+ +-----+ RIGHT (mmHg) LEFT (mmHg) +-----+ +--------+ +-----+ Index 156 Brachial 150 Index +-----+ +--------+ +-----+ 0.54 85 PROGRAM MANAGER RN 145 0.93 +-----+ +--------+ +-----+ 0.43 67 DPA 118 0.76 +-----+ +--------+ +-----+ Nicolas Worthington MD. [facility] Electronically signed on 09/01/2023 1:14:56 PM This study was performed and interpreted by a service accredited by theIntersocietal Accreditation Commission (IAC/Vascular),[email or web address] Report generated by [facility]. Final Jamey KENNEDY US * US CAROTID DUPLEX BILATERAL (08/30/2023 3:17 PM [facility]AGE [facility]INDER) Anatomical Region Laterality Modality CAROTID, NECK Ultrasound 08/30/2023 12:1 8 PM [facility]ER Narrative 08/30/2023 6:11 PM [facility] W[facility]ER VASCULAR ULTRASOUND REPORT PIHLLIP HERNANDEZ Accession#: ?? [id number] : ?1950 Study Date: ?? 08/30/2023 12:18:05 PM Age: ?73 years ?? Tech: ? BVB Gender: M ?Referring MD: JAMEY ARORA Site: [facility] Study performed: ?Carotid Indication for Study: s/p left CEA TECHNIQUE: The extracranial carotid arteries, vertebral arteries and subclavian arteries were examined per exam protocol with duplex ultrasound, color-flow and spectral Doppler. Flow velocities including peak systolic (PSV), end diastolic (EDV), and velocity ratios if applicable were documented at sites per exam protocol. Degrees of stenosis in the internal carotid artery (ICA) were determined using SRU 2002 Consensus Panel Criteria. IMPRESSION: 1. Based on the ICA velocities, ICA/CCA ratio, and 2D images there is plaque causing <50% stenosis in the right internal carotid artery and there is plaque causing <50% stenosis in the left internal carotid artery. 2. Normal antegrade flow within bilateral vertebral arteries. 3. Multiphasic flow within bilateral subclavian arteries. COMPARISON: Compared to prior study CTA 03/15/23, resolved left ICA high grade stenosis, patent endarterectomy site. FINDINGS: There is a >50% stenosis in the right external carotid artery. RIGHT FINDINGS: Antegrade flow in the right vertebral artery. Normal multiphasic right subclavian artery flow. LEFT FINDINGS: Antegrade flow in the left vertebral artery. Normal multiphasic left subclavian artery flow. MEASUREMENTS: +--------+--------+------+--------+--------+ RIGHT ?? RIGHT ?LEFT ?LEFT ?? +--------+--------+------+--------+--------+ PSV cm/s EDV cm/s Vessel PSV cm/s EDV cm/s +--------+--------+------+--------+--------+ ?? 68 ? 13 ?? P. CCA ?? 83 ? 11 ?? +--------+--------+------+--------+--------+ ?? 63 ? 13 ?? D. CCA ?? 90 ? 15 ?? +--------+--------+------+--------+--------+ ?? 88 ? 21 ?? P. ICA ??113 ? 17 ?? +--------+--------+------+--------+--------+ ?? 52 ? 12 ?? M. ICA ?? 83 ? 20 ?? +--------+--------+------+--------+--------+ ?? 48 ? 12 ?? D. ICA ?? 66 ? 17 ?? +--------+--------+------+--------+--------+ ??295 ? 19 ?? ECA ? 76 ? 13 ?? +--------+--------+------+--------+--------+ +-----+ +----+ RIGHT ? LEFT +-----+ +----+ 45 ?? Vertebral Artery (cm/s) 46 +-----+ +----+ 1.4 ? ICA/CCA Ratio ? 1.2 +-----+ +----+ Diagnostic Criteria: + + + + + ICA STENOSIS* ? PSV (cm/sec) ? EDV (cm/sec) ICA/CCA Ratio + + + + + Normal ? <125 ?<40 ? <2 ? + + + + + Mild (1-49%) ? <125 ?<40 ? <2 ? + + + + + Moderate (50-69%) ? >125-230 ? 40-100 ?>2-4 ? + + + + + Severe (>70%) ? >230 ?>100 ? >4 ? + + + + + Near Occlusion ?? High, low, or undetectable ??Variable ?Variable ?? + + + + + Occlusion ? Absent flow ? Absent flow Absent flow + + + + + *SRU 2002 Consensus Panel Criteria Braxton Fonseca MD. Electronically signed on 08/30/2023 6:11:55 PM This study was performed and interpreted by a service accredited by the Intersocietal Accreditation Commission (IAC/Vascular), [email or web address] Report generated by [facility]. ??Final ?? Procedure Note Braxton Fonseca MD - 08/30/2023 VASCULAR ULTRASOUND REPORT PHILLIP HERNANDEZ : 1950 Study Date: 08/30/2023 12:18:05 PM Age: 73 years Tech: LELAB Gender: M Referring MD: JAMEY ARORA Site: [facility] Study performed: Carotid Indication for Study: s/p left CEA TECHNIQUE: The extracranial carotid arteries, vertebral arteries and subclavianarteries were examined per exam protocol with duplex ultrasound,color-flow and spectral Doppler. Flow velocities including peak systolic(PSV), end diastolic (EDV), and velocity ratios if applicable weredocumented at sites per exam protocol. Degrees of stenosis in the internalcarotid artery (ICA) were determined using SRU 2002 Consensus PanelCriteria. IMPRESSION: 1. Based on the ICA velocities, ICA/CCA ratio, and 2D images there isplaque causing <50% stenosis in the right internal carotid artery andthere is plaque causing <50% stenosis in the left internal carotidartery. 2. Normal antegrade flow within bilateral vertebral arteries. 3. Multiphasic flow within bilateral subclavian arteries. COMPARISON: Compared to prior study CTA 03/15/23, resolved left ICA high gradestenosis, patent endarterectomy site. FINDINGS: There is a >50% stenosis in the right external carotid artery. RIGHT FINDINGS: Antegrade flow in the right vertebral artery. Normal multiphasic rightsubclavian artery flow. LEFT FINDINGS: Antegrade flow in the left vertebral artery. Normal multiphasic leftsubclavian artery flow. MEASUREMENTS: +--------+--------+------+--------+--------+ RIGHT RIGHT LEFT LEFT +--------+--------+------+--------+--------+ PSV cm/s EDV cm/s Vessel PSV cm/s EDV cm/s +--------+--------+------+--------+--------+ 68 13 P. CCA 83 11 +--------+--------+------+--------+--------+ 63 13 D. CCA 90 15 +--------+--------+------+--------+--------+ 88 21 P. ICA 113 17 +--------+--------+------+--------+--------+ 52 12 M. ICA 83 20 +--------+--------+------+--------+--------+ 48 12 D. ICA 66 17 +--------+--------+------+--------+--------+ 295 19 ECA 76 13 +--------+--------+------+--------+--------+ +-----+ +----+ RIGHT LEFT +-----+ +----+ 45 Vertebral Artery (cm/s) 46 +-----+ +----+ 1.4 ICA/CCA Ratio 1.2 +-----+ +----+ Diagnostic Criteria: + + + + + ICA STENOSIS* PSV (cm/sec) EDV (cm/sec) ICA/CCARatio + + + + + Normal <125 <40 <2 + + + + + Mild (1-49%) <125 <40 <2 + + + + + Moderate (50-69%) >125-230 40-100 >2-4 + + + + + Severe (>70%) >230 >100 >4 + + + + + Near Occlusion High, low, or undetectable Variable Variable + + + + + Occlusion Absent flow Absent flow Absent flow + + + + + *SRU 2002 Consensus Panel Criteria Braxton Fonseca MD. Electronically signed on 08/30/2023 6:11:55 PM This study was performed and interpreted by a service accredited by theIntersocietal Accreditation Commission (IAC/Vascular),[email or web address] Report generated by [facility]. Final Jamey Yanez Bridger AHUJA from Last 3 Months Advance Directives Latest Code Status on File Code Status Date Activated Date Inactivated Comments Full Code 04/27/2023 6:01 AM 04/29/2023 6:46 PM Question Answer Comments Code Status Discussion: Unable to Assess Preferences, Provider to review later Code Status History Code Status Date Activated Date Inactivated Comments Full Code 06/22/2019 6:10 PM 06/23/2019 7:19 PM Question Answer Comments Code Status Discussion: Discussed Care Teams Railcar Mechanic Relationship Specialty Start Date End Date Chris Felder MD [address] [place] [address] PCP - General Family Practice 04/20/23
--- OUTSIDE RECORDS SUMMARY | 2023-09-29 06:51 | XMS_ITS | Clinical Summary ---
Author Name Unknown Organization [facility] Address [address] [place] [address] Care Team Providers Care Guest Relations Manager Name Role Phone Unavailable Primary Care Provider Unavailabl e Source Comments Patient records contain information from all sites at [facility]. For routine questions regarding patient records, call [phone] during business hours, M-F 8:00 AM - 5:00 PM Central Time. Record requests for emergency care only can be directed to [phone] at any time.[facility] Medications Medication Sig Dispensed Refills Start [...] Comments Blood Pressure 120/64 07/29/2022 2:17 PM FIRE EXTINGUISHER REPAIRER INSPECTOR Pulse - - Temperature - - Respiratory Rate - - Oxygen Saturation - - Inhaled Oxygen Concentration - - Weight 60.8 kg (134 lb) 07/29/2022 2:00 PM FIRE EXTINGUISHER REPAIRER INSPECTOR Height 172.7 cm (5' 7.99) 07/29/2022 2:00 PM CS T Body Mass Index 20.38 07/29/2022 2:00 PM FIRE EXTINGUISHER REPAIRER INSPECTOR Plan of Treatment Health Maintenance Due Date Last Done Comments CT Colonography 1950 Cologuard 1950 Colonoscopy 1950 Colorectal Cancer Screening 1950 FIT 1950 Hepatitis C Screening 1950 COVID-19 Vaccine (#1) 01/28/1951 Pneumococcal vaccine (65+ ye ars) (1 of 2 - PCV) 1958 DTaP,Tdap,and Td Vaccines (1 - Tdap) 1971 Zoster Vaccines (1 of 2) 2002 Depression Screening (Annual PHQ-2) 09/20/2022 Fall Risk Screen (Annual) 09/20/2022 Fasting Glucose for Diabetes Screening 04/03/2023 04/03/2020, 09/28/2019, 06/27/2018 Influenza Vaccine (#1) 2023
== END 2023-09-27 09:36 | disposition home or self-care (01) ==
LOC: NFLDREF 09-29 06:49
PROVIDERS: PCP Family Medicine; Referring Provider Family Medicine; Visit Provider Family Medicine
DX: E11.9 Type 2 diabetes mellitus without complications (principal)
CPT/HCPCS: 80053; 80061; 82043; 82570

== ENCOUNTER 2023-09-30 13:24 | Outpatient (CLI) | payer MEDICARE, SELFPAY ==
--- OUTSIDE RECORDS SUMMARY | 2023-09-30 13:34 | XMS_ITS | Clinical Summary ---
Author Name Unknown Organization [facility] Address [address] [place] [address] Care Team Providers Care Gas Main And Line Fitter Name Role Phone Unavailable Primary Care Provider Unavailabl e Source Comments Patient records contain information from all sites at [facility]. For routine questions regarding patient records, call [phone] during business hours, M-F 8:00 AM - 5:00 PM Central Time. Record requests for emergency care only can be directed to [phone] at any time.[facility] Medications Medication Sig Dispensed Refills Start [...] Comments Blood Pressure 120/64 07/29/2022 2:17 PM FINANCIAL INTERNSHIP Pulse - - Temperature - - Respiratory Rate - - Oxygen Saturation - - Inhaled Oxygen Concentration - - Weight 60.8 kg (134 lb) 07/29/2022 2:00 PM FINANCIAL INTERNSHIP Height 172.7 cm (5' 7.99) 07/29/2022 2:00 PM CS T Body Mass Index 20.38 07/29/2022 2:00 PM FINANCIAL INTERNSHIP Plan of Treatment Health Maintenance Due Date [...]
--- OUTSIDE RECORDS SUMMARY | 2023-09-30 13:34 | XMS_ITS ---
Author Name Unknown Organization [facility] Address [address] [place] [address] Care Team Providers Care Warp Dresser Name Role Phone Unavailable Unavailable Unavailable Surgery Details Not on file Complications Check Surgery Details section. Procedure Estimated Blood Loss Check Surgery Details section. Procedure Findings Check Surgery Details section. Procedure Specimens Taken Check Surgery Details section.
--- OUTSIDE RECORDS SUMMARY | 2023-09-30 13:34 | XMS_ITS | Referral Summary ---
Author Name Unknown Organization [facility] Address [address] [place] [address] Care Team Providers Care Contract Serviceman Name Role Phone Unavailable Primary Care Provider Unavailabl e Source Comments Patient records contain information from all sites at [facility]. For routine questions regarding patient records, call [phone] during business hours, M-F 8:00 AM - 5:00 PM Central Time. Record requests for emergency care only can be directed to [phone] at any time.[facility] Medications Medication Sig Dispensed Refills Start Date [...] Comments Blood Pressure 120/64 07/29/2022 2:17 PM SHAKE BACKBOARD NOTCHER Pulse - - Temperature - - Respiratory Rate - - Oxygen Saturation - - Inhaled Oxygen Concentration - - Weight 60.8 kg (134 lb) 07/29/2022 2:00 PM SHAKE BACKBOARD NOTCHER Height 172.7 cm (5' 7.99) 07/29/2022 2:00 PM CS T Body Mass Index 20.38 07/29/2022 2:00 PM SHAKE BACKBOARD NOTCHER Plan of Treatment Not on file
--- OUTSIDE RECORDS SUMMARY | 2023-09-30 13:35 | XMS_ITS | Clinical Summary ---
Author Name Unknown Organization [facility] Address [place], [place] [address] Care Team Providers Care Concrete Mixing Truck Driver Name Role Phone Chris Felder MD Primary Care Provider [phone] Allergies No known active allergies Medications Medication [...] type, unspecified whether angina present, unspecified whether ramona or transplanted heart,S/P CABG (coronary artery bypass [...] Type Department Care Team Description 09/23/2023 Telephone [facility] [address] [place] [address] Virgilio Reddy MD Appointment Request 09/08/2023 Telephone [facility] [address] [place] [address] Virgilio Reddy MD Surgery Scheduled 09/05/2023 Travel 09/02/2023 1:30 PM BURGLAR ALARM INSTALLER Office Visit [facility] [address] [place] [address] Virgilio Reddy MD Follow Up (Coronary artery disease, unspecified vessel or lesion type, unspecified whether angina present, unspecified whether ramona or transplanted heart) 09/02/2023 Travel 08/30/2023 1:45 PM BURGLAR ALARM INSTALLER Orders Only [facility] [address] [place] [address] 1 scan: (1-Ord) US ARTERIAL LOWER EXTREMITY W PARIS BILATERAL ([id number]) 08/30/2023 1:00 PM BURGLAR ALARM INSTALLER Orders Only [facility] [address] [place] [address] 1 scan: (1-Ord) US CAROTID DUPLEX BILATERAL ([id number]) 08/30/2023 Travel 08/17/2023 2:00 PM BURGLAR ALARM INSTALLER Office Visit [facility] [address] [place] [address] Job Morrell DPM Follow Up (Bilateral foot-gangrene [...] Comments Blood Pressure 160/89 09/02/2023 1:28 PM BURGLAR ALARM INSTALLER Pulse 60 09/02/2023 1:28 PM BURGLAR ALARM INSTALLER Temperature 36.8 ??C (98.2 ??F) 04/29/2023 11:35 AM C DT Respiratory Rate 16 04/29/2023 11:35 AM CDT Oxygen Saturation 100% 09/02/2023 1:28 PM BURGLAR ALARM INSTALLER Inhaled Oxygen Concentration - - Weight 66.7 kg (147 lb) 09/02/2023 1:28 PM BURGLAR ALARM INSTALLER Height 175.3 cm (5' 9) 04/27/2023 6:41 AM CDT Body Mass Index 21.71 04/27/2023 6:41 AM CDT Plan of Treatment Upcoming Encounters Date Type Department Care Team (Late st Contact Info) Description 10/07/2023 12:00 PM BURGLAR ALARM INSTALLER Appointment [facility] [address] [place] [address] Virgilio Reddy MD [address] [facility] [address] [place] [address] 11/01/2023 2:00 PM BURGLAR ALARM INSTALLER Orders Only [facility] [address] [place] [address] 12/02/2023 1:00 PM CDT Office Visit [facility] [address] [place] [address] Virgilio Reddy MD [address] [facility] [address] [place] [address] Health Maintenance Due Date Last Done Comments [...] Completed 02/03/2023 Medical Devices Implanted Type Area Skein Tier Device Identifier Shelf Expiration Date Model / Serial / Lot Tissue Pericardium 0.8x8cm Xenosure - [id number] Implanted:Qty: 1 on 04/27/2023 by Virgilio Reddy MD at [facility] Left: Carotid [employer] 10/17/2028 0.8P8 / / [id number] Procedures Procedure Name Priority Date/Time Associated Diagnosis Comments US ARTERIAL LOWER EXTREMITY W PARIS BILATERAL Routine 08/30/2023 3:17 PM BURGLAR ALARM INSTALLER PAD (peripheral artery disease) (HC) US CAROTID DUPLEX BILATERAL Routine 08/30/2023 3:17 PM BURGLAR ALARM INSTALLER Carotid stenosis, asymptomatic, left from Last 3 Months Results * US ARTERIAL LOWER EXTREMITY W PARIS BILATERAL (08/30/2023 3:17 PM BURGLAR ALARM INSTALLER) Anatomical Region Laterality Modality LEGS Ultrasound 08/30/2023 11:5 5 AM BURGLAR ALARM INSTALLER Narrative 09/01/2023 1:14 PM BURGLAR ALARM INSTALLER VASCULAR ULTRASOUND REPORT PHILLIP HERNANDEZ Accession#: ?? [id number] : ?1950 Study Date: ?? 08/30/2023 11:55:18 AM Age: ?73 years ?? Tech: ? BVB Gender: M ?Referring MD: JAMEY ARORA Site: [facility] Study performed: ?Lower extremity duplex US, resting [...] Phasicity ?? Stenosis Ratio +--------+ + +--------+-----+ URBAN RENEWAL MANAGER PRX ? 80 ? multiphasic ? +--------+ + +--------+-----+ URBAN RENEWAL MANAGER DST ? 79 ? multiphasic ? +--------+ [...] stenotic ?? 75-99% 29.1 +--------+ + +--------+-----+ LINE INSTALLER REPAIRER PRX ? 119 ? monophasic ? +--------+ + +--------+-----+ LINE INSTALLER REPAIRER DST ? 36 ? monophasic ? +--------+ + +--------+-----+ DPA ?9 ? monophasic ? +--------+ + +--------+-----+ +--------+ + +--------+-----+ LEFT ? Velocity cm/s Phasicity ?? Stenosis Ratio +--------+ + +--------+-----+ URBAN RENEWAL MANAGER PRX ? 126 ? multiphasic ? +--------+ + +--------+-----+ URBAN RENEWAL MANAGER DST ? 127 ? multiphasic ? +--------+ [...] ? 75-99% 7.8 ?? +--------+ + +--------+-----+ LINE INSTALLER REPAIRER PRX ? 95 ? +--------+ + +--------+-----+ LINE INSTALLER REPAIRER DST ? 62 ? monophasic ? +--------+ [...] Index +-----+ +--------+ +-----+ 0.54 ? 85 ?LINE INSTALLER REPAIRER ?145 ? 0.93 +-----+ +--------+ +-----+ 0.43 ? 67 ?DPA ?118 ? 0.76 +-----+ +--------+ +-----+ Nicolas Worthington MD. [employer] Electronically signed on 09/01/2023 1:14:56 PM This study was performed and interpreted by a service accredited by the Intersocietal Accreditation Commission (IAC/Vascular), [email or web address] Report generated by [employer]. ??Final ?? Procedure Note Nicolas Worthington MD - 09/01/2023 VASCULAR ULTRASOUND REPORT PHILLIP HERNANDEZ : 1950 Study Date: 08/30/2023 11:55:18 AM Age: 73 years Tech: BVB Gender: M Referring MD: JAMEY ARORA Site: [facility] Study performed: Lower extremity duplex US, resting [...] cm/s Phasicity Stenosis Ratio +--------+ + +--------+-----+ URBAN RENEWAL MANAGER PRX 80 multiphasic +--------+ + +--------+-----+ URBAN RENEWAL MANAGER DST 79 multiphasic +--------+ + +--------+-----+ PFA 100 multiphasic +--------+ + +--------+-----+ SFA PRX 73 multiphasic +--------+ + +--------+-----+ SFA MID 72 multiphasic +--------+ + +--------+-----+ SFA DST 26 multiphasic +--------+ + +--------+-----+ SEYMOUR PRX 34 multiphasic +--------+ + +--------+-----+ SEYMOUR DST 16 monophasic +--------+ + +--------+-----+ TPT 466 stenotic 75-99% 29.1 +--------+ + +--------+-----+ LINE INSTALLER REPAIRER PRX 119 monophasic +--------+ + +--------+-----+ LINE INSTALLER REPAIRER DST 36 monophasic +--------+ + +--------+-----+ DPA 9 monophasic +--------+ + +--------+-----+ +--------+ + +--------+-----+ LEFT Velocity cm/s Phasicity Stenosis Ratio +--------+ + +--------+-----+ URBAN RENEWAL MANAGER PRX 126 multiphasic +--------+ + +--------+-----+ URBAN RENEWAL MANAGER DST 127 multiphasic +--------+ + +--------+-----+ PFA 197 multiphasic +--------+ + +--------+-----+ SFA PRX 112 multiphasic +--------+ + +--------+-----+ SFA MID 132 multiphasic +--------+ + +--------+-----+ SFA DST 49 multiphasic +--------+ + +--------+-----+ SEYMOUR PRX 49 multiphasic +--------+ + +--------+-----+ SEYMOUR DST 56 multiphasic +--------+ + +--------+-----+ TPT 436 stenotic 75-99% 7.8 +--------+ + +--------+-----+ LINE INSTALLER REPAIRER PRX 95 +--------+ + +--------+-----+ LINE INSTALLER REPAIRER DST 62 monophasic +--------+ + +--------+-----+ DPA 11 monophasic (retrograde) +--------+ + +--------+-----+ Criteria: Stenosis V. Ratio Mild <50% <2.0 Moderate 50-74% > or = 2.0 Severe 75-99% > or = 4.0 Occluded 100% no detectable flow Pressures +-----+ +--------+ +-----+ RIGHT (mmHg) LEFT (mmHg) +-----+ +--------+ +-----+ Index 156 Brachial 150 Index +-----+ +--------+ +-----+ 0.54 85 LINE INSTALLER REPAIRER 145 0.93 +-----+ +--------+ +-----+ 0.43 67 DPA 118 0.76 +-----+ +--------+ +-----+ Nicolas Worthington MD. [employer] Electronically signed on 09/01/2023 1:14:56 PM This study was performed and interpreted by a service accredited by theIntersocietal Accreditation Commission (IAC/Vascular),[email or web address] Report generated by [employer]. Final Jamey KENNEDY US * US CAROTID DUPLEX BILATERAL (08/30/2023 3:17 PM BURGLAR ALARM INSTALLER) Anatomical Region Laterality Modality CAROTID, NECK Ultrasound 08/30/2023 12:1 8 PM BURGLAR ALARM INSTALLER Narrative 08/30/2023 6:11 PM BURGLAR ALARM INSTALLER VASCULAR ULTRASOUND REPORT PHILLIP HERNANDEZ Accession#: ?? [id number] : ?1950 Study Date: ?? 08/30/2023 12:18:05 PM Age: ?73 years ?? Tech: ? BVB Gender: M ?Referring MD: JAMEY ARORA Site: [facility] Study performed: ?Carotid Indication for Study: s/p [...] Accreditation Commission (IAC/Vascular), [email or web address] Report generated by [employer]. ??Final ?? Procedure Note Braxton Fonseca MD - 08/30/2023 VASCULAR ULTRASOUND REPORT PHILLIP HERNANDEZ : 1950 Study Date: 08/30/2023 12:18:05 PM Age: 73 years Tech: LELAB Gender: M Referring MD: JAMEY ARORA Site: [facility] Study performed: Carotid Indication for Study: s/p [...] theIntersocietal Accreditation Commission (IAC/Vascular),[email or web address] Report generated by [employer]. Final Jamey Yanez Bridger AHUJA from Last [...] Comments Code Status Discussion: Discussed Care Teams Concrete Mixing Truck Driver Relationship Specialty Start Date End Date Chris Felder MD [address] [place] [address] PCP - General Family Practice 04/20/23
== END 2023-09-30 13:25 | disposition home or self-care (01) ==
LOC: NFLDREF 13:28
PROVIDERS: PCP Family Medicine; Visit Provider Family Medicine
DX: E03.9 Hypothyroidism, unspecified (principal)
CPT/HCPCS: 84443

== ENCOUNTER 2024-10-08 14:00 | Outpatient (CLI) | payer MEDICARE, SELFPAY | END 2024-10-08 14:01 | disposition home or self-care (01) | LOC: AMB 10-20 00:49 | PROVIDERS: PCP Family Medicine; Visit Provider Student in an Organized Health Care Education/Training Program | DX: R06.09 Other forms of dyspnea (principal) | CPT/HCPCS: A0425; A0427 ==

== ENCOUNTER 2024-10-08 14:32 | Inpatient (IN) | payer MEDICARE, SELFPAY ==
[2024-10-08] VITALS (29 sets, daily range): BP systolic 117–148; BP diastolic 64–109; PULSE 69–87; RESP 20–28; TEMP 36.8–37.3; O2SAT 89–96; BMI 19.2; BMI 22.0
--- OUTSIDE RECORDS SUMMARY | 2024-10-08 14:35 | XMS_ITS | Continuity of Care Document ---
Author Name [facility] Address Unknown Organization Unknown Address Unknown Procedures FILTER APPLIED:Only known Procedures with Onset Date within the last 5 years Procedure Date Procedure Provider Additiona l Information Status ASSAY THYROID STIM HORMONE (58326) Completed ASSAY OF URINE CREATININE (10277) Completed UR ALBUMIN QUANTITATIVE (28056) Completed COMPREHEN METABOLIC PANEL (95570) Completed LIPID PANEL (05229) Comp leted Encounters FILTER APPLIED:Only known Encounters with Admission Date within the last 5 years Encounter Location Admission Discharge Billing Code Retail Equipment Associate George bruner Outpatient Chris Felder Outpatient Chris Felder Outpatient Chris Felder
--- OUTSIDE RECORDS SUMMARY | 2024-10-08 14:36 | XMS_ITS | Clinical Summary ---
Author Organization [employer] [facility] [employer] Address [place], [place] [address] Care Team Providers Care Clinical Case Manager Name Role Phone Chris Felder MD Primary Care Provider [phone] Allergies No known active allergies Medications multivitamin (MVI) tablet Take 1 tablet by mouth once daily. 0 07/17/20 10 Active vitamin B complex (B COMPLEX 1) tablet Take 1 tablet by mouth once daily. 0 12/12/19 17 Active cholecalciferol (VITAMIN D3) 1,000 unit tablet Take 2,000 Units by mouth once daily. Active bisoprolol (ZEBETA) 5 mg tabletIndication s:Atrial fibrillation, unspecified type (HC),Screening for AAA (abdominal aortic aneurysm),[place]oyd [place] artery disease, unspecified vessel or lesion type, unspecified whether angina present, unspecified whether [place] or transplanted heart,S/P CABG (coronary artery bypass graft) Take 0.5 Tablets (2.5 mg) by mouth once daily. 30 Tablet 2 07/31/20 22 Active amLODIPine (NORVASC) 10 mg tablet Take 10 mg by mouth once daily. 12/02/19 23 Active clopidogreL (PLAVIX) 75 mg tablet TAKE ONE TABLET(75MG) BY MOUTH EVERY DAY 12/02/19 23 Active levothyroxine (SYNTHROID) 75 mcg tablet Take 75 mcg by mouth once daily. 12/25/19 23 Active glipiZIDE (GLUCOTROL) 5 mg tablet Take 5 mg by mouth two times daily before meals. Active Alpha Lipoic Acid 200 mg tab Take 200 mg by mouth two times daily. Active ascorbic acid, vitamin C, (Vitamin C) 500 mg tablet Take 500 mg by mouth once daily. Active magnesium 250 mg tab Take 250 mg by mouth once daily. Active potassium gluconate 600 mg (99 mg) tab Take 1 Tablet by mouth once daily. Active zinc gluconate 50 mg tablet Take 50 mg by mouth once daily. Active apixaban (ELIQUIS) 5 mg tabletIndication s:TIA (transient ischemic attack),Atrial fibrillation, unspecified type (HC) Take 1 Tablet (5 mg) by mouth two times daily. 180 Tablet 3 04/08/20 23 Active acetaminophen (TYLENOL EXTRA STRGTH) 500 mg tablet Take 1 Tablet (500 mg) by mouth every 6 hours if needed for Pain. Max acetaminophen dose: 4000mg in 24 hrs. 0 04/29/20 23 Active HYDROcodone-acet aminophen (NORCO) 5-325 mg per tabletIndication s:Carotid stenosis, asymptomatic, left Take 1 Tablet by mouth every 6 hours if needed for Pain. Max acetaminophen dose: 4000 mg in 24 hrs. For severe pain. 15 Tablet 04/29/2023 1:34 PM CDT 04/29/20 23 Active sennosides-docus ate (SENOKOT S) (8.6-50 mg) tabletIndication s:Carotid stenosis, asymptomatic, left Take 2 Tablets by mouth 2 times daily if needed for Constipation. 40 Tablet 04/29/2023 1:34 PM CDT 04/29/20 23 Active lisinopriL (PRINIVIL; ZESTRIL) 20 mg tabletIndication s:HTN (hypertension) Take 1 Tablet (20 mg) by mouth once daily. 30 Tablet 1 04/29/2023 1:34 PM CDT 04/30/20 23 Active hydrALAZINE (APRESOLINE) 25 mg tabletIndication s:HTN (hypertension) Take 1 Tablet (25 mg) by mouth every 6 hours if needed for SBP >140. 20 Tablet 04/29/2023 1:43 PM CDT 04/29/20 23 Active Active Problems Problem Noted Date Diagnosed Date Carotid stenosis, asymptomatic, left 04/27/2023 CAD (coronary artery disease) 04/27/2023 Acute respiratory failure with hypoxia 3 Chronic renal disease, stage III 04/06/2020 Overview (04/06/2020): CREATININE 0.72 - 1.25 mg/dL 1.52High 1.54High BUN/CREAT RATIO 12 15 GFR if >60 ml/min/1.73m2 56Low 55Low GFR if not >60 ml/min/1.73m2 46Low 45Low TIA (transient ischemic attack) 06/22/2019 History of stroke 06/22/2019 COPD exacerbation 01/11/2017 Type II diabetes mellitus with complication 07/21 HTN (hypertension) 2015 Tobacco use disorder 07/25/2008 Hyperlipidemia LDL goal <70 Family History * Patient is adopted Medical History Relation Name Comments Alcoholism Brother 1 Cancer Brother 1 Pancreatic canc er COPD Brother 3 Heart Disease Neg. Relation Name Status Comments Brother 1 Brother 2 Brother 3 Daughter Alive Father Mother Neg. Son Alive Social History Tobacco Use Types Packs/Day Years Used Date Smoking Tobacco: Every Day Cigarettes 0.5 57 Started: 1967 Smokeless Tobacco: Never Tobacco Cessation:Ready to Q uit: Not Asked; Counseling Given: Yes Comments:8 cigarettes/day Alcohol Use Standard Drinks/Week Comments No 0 (1 standard drink = 0.6 oz pur e alcohol) PHQ-2 Answer Date Recorded PHQ-2 TOTAL SCORE 0 04/03/2020 Social Connections Answer Date Recorded Frequency of Communication with Friends and Fami ly Not on file 09/20/2021 Financial Resource Strain Answer Date R ecorded Difficulty of Paying Living Expenses Not on file 09/20/2021 Difficulty of Paying Living Expenses Not on file 09/20/2021 Interpersonal Safety Answer Date Record ed Are you being hit, kicked, p ushed or yelled at (see row info)? No 10/07/2023 Interpersonal Safety Abuse 12 - 18 Not on file 10/07/2023 Interpersonal Safety Ambulatory Vulnerability No t on file 10/07/2023 Sex and Gender Information Value Date Recorded Sex Assigned at Not on file Legal Sex Male 5:24 AM [employer] Gender Identity Not on file Sexual Orientation Not on file Obstetrics History Last Filed Vital Signs Vital Sign Reading Time Taken Comments Blood Pressure 129/78 06/29/2024 12:54 PM CDT Pulse 69 06/29/2024 12:54 PM CDT Temperature 35.4 C (95.8 F) 10/07/2023 3:55 PM [employer] Respiratory Rate 16 10/07/2023 3:55 PM [employer] Oxygen Saturation 97% 06/29/2024 12:54 PM CDT Inhaled Oxygen Concentration - - Weight 62.7 kg (138 lb 3.2 oz) 06/29/2024 12:54 PM CDT Height 174 cm (5' 8.5) 10/07/2023 10:27 AM [employer] Body Mass Index 20.71 10/07/2023 10:27 AM [employer] Plan of Treatment Health Maintenance Due Date Last Done Comments Pneumococcal series for age 50+ (1 of 2 - PCV) 1958 Tdap 1963 Tetanus booster 1972 Colonoscopy through age 75 1997 Zoster (shingles) series for age 50+ (1 of 2) 2002 RSV vaccine for adults or (1 - Risk 60-74 years 1-dose series) 2012 Medicare Wellness for age 65+ 2017 Depression screening for age 12+ 04/03/2021 04/03/2020, 03/22/2019, 03/22/2019, Additional history exists BMI (ht and wt on same day) for age 18+ 01/29/2024 01/28/2023, 2022, 04/03/2020, Additional history exists COVID-19 vaccine series ( season) 2024 Influenza for age 65+ 05/21/2024 Lipids for age 45-75 09/28/2024 09/28/2019, 03/22/2019, 06/27/2018, Additional history exists Hepatitis C screening for ag e 18-79 Completed 2015 AAA screening age 65-74 Completed 02/03/2023 Medical Devices Implanted Type Area School Adjustment Counselor Device Identifier Shelf Expiration Date Model / Serial / Lot Tissue Pericardium 0.8x8cm Xenosure - [id number] Implanted:Qty: 1 on 04/27/2023 by Virgilio Reddy MD at [facility] Left: Carotid Artery [employer] 10/17/2028 0.8P8 / / [id number] Procedures Procedure Name Priority Date/Time Associated Diagnosis Comments US AORTA Routine 02/03/2023 11:02 AM CDT PAD (peripheral artery disease) (HC) LIPID PANEL W REFLEX MEASURED LDL Routine 09/28/2019 9:32 AM [employer] Dyslipidemia, goal LDL below 70 ANTI HCV Routine 2015 3:10 PM [employer] Elevated LFTs from Last 3 Months or Most Recently Relevant to Health Maintenance Results * US AORTA (02/03/2023 11:02 AM CDT) Anatomical Region Laterality Modality Abdomen, AORTA Ultrasound 02/03/2023 2:39 PM CDT Narrative 02/03/2023 2:39 PM CDT For Patients: As a result of the Cures Act, medical imaging exams and procedure reports are released immediately into your electronic medical record. You may view this report before your referring provider. If you have questions, please contact your health care provider. Examination: US abdominal aorta Indication: Abdominal aortic aneurysm screening. Technique: Ellis scale and color Doppler images of the aorta and common iliac arteries are obtained. Comparison: None Findings: Proximal aorta: 2.1 x 2.7 cm Mid aorta: 2.7 x 2.8 cm Distal aorta: 2.2 x 2.6 cm Right common iliac artery: 1.1 x 1.5 cm Left common iliac artery: 1.3 x 1.3 cm Extensive atherosclerotic disease is present. Impression: Ectatic aorta without aneurysm. Dictated by Meño Alcaraz MD @ Feb 03 2023 2:39PM (Electronically Signed) Procedure Note Meño Alcaraz MD - 02/03/2023 For Patients: As a result of the Cures Act, medical imagingexams and procedure reports are released immediately into your electronicmedical record. You may view this report before your referring provider.If you have questions, please contact your health care provider. Examination: US abdominal aorta Indication: Abdominal aortic aneurysm screening. Technique: Ellis scale and color Doppler images of the aorta and common iliac arteriesare obtained. Comparison: None Findings: Proximal aorta: 2.1 x 2.7 cm Mid aorta: 2.7 x 2.8 cm Distal aorta: 2.2 x 2.6 cm Right common iliac artery: 1.1 x 1.5 cm Left common iliac artery: 1.3 x 1.3 cm Extensive atherosclerotic disease is present. Impression: Ectatic aorta without aneurysm. Dictated by Meño Alcaraz MD @ Feb 03 2023 2:39PM (Electronically Signed) Virgilio Reddy MD Yesi l Result * (ABNORMAL) LIPID PANEL W REFLEX MEASURED LDL (09/28/2019 9:32 AM [employer]) CHOLESTEROL,TOTAL 163 100 - 199 mg/dL 09/28/2019 5:14 PM [employer] [facility] TRIGLYCERIDES 141 <150 mg/dL 09/28/2019 5:14 PM [employer] [facility] HDL CHOLESTEROL 24(L) >40 mg/dL 0 5:14 PM [employer] [facility] NON-HDL CHOLESTEROL 139 <145 mg/dl 09/28/2019 5:14 PM [employer] [facility] CHOL/HDL RATIO 6.79(H) <4.50 09/28/2019 5:14 PM [employer] [facility] LDL CHOLESTEROL 111 <=130 mg/dL 09/28/2019 5:14 PM [employer] [facility] PROVIDER ORDERED STATUS RANDOM 09/28/2019 5:14 PM [employer] [facility] Blood BLOOD SPECIMEN / Unknown Venipuncture / Unknown 09/28/2019 9:32 AM [employer] 09/28/2019 9:35 AM [employer] Ino Zhao MD CHEMISTRY Final Re sult [facility] [address] [place] [address], [place] * ANTI HCV (2015 3:10 PM [employer]ENDENT) HEPATITIS C ANTIBODY Non-Reacti ve Non-Reacti ve 2015 7:58 PM [employer] [facility] Blood specimen (specimen) BLOOD SPECIMEN / Unknown Venipuncture / Unknown 2015 3:10 PM [employer] 2015 3:10 PM [employer] Narrative [facility] - 2015 7:58 PM [employer] Antibodies to HCV not detected; does not exclude the possibility of exposure to HCV. Ino Zhao MD SEND OUTS Final Re sult [facility] [address] [place] [address], from Last 3 Months or Most Recently Relevant to Health Maintenance Insurance [facility] MEDICARE ADVANTAGE MR MEDICARE PART A HB ONLY Advance Directives * Full Code (Latest Code Status on File) Date Activated Date Inactivated Comments 04/27/2023 6:01 AM 04/29/2023 6:46 PM Question Answer Comments Code Status Discussion: Unable to Assess Preferences, Provider to review later * Full Code Date Activated Date Inactivated Comments 06/22/2019 6:10 PM 06/23/2019 7:19 PM Question Answer Comments Code Status Discussion: Discussed Care Teams Clinical Case Manager Relationship Specialty Start Date End Date Chris Felder MD [address] [place] [address] PCP - General Family Practice 04/20/23
--- NOTE | 2024-10-08 14:55 | ED_ITS ---
HPI - SOB/Dyspnea General Date Seen: 10/08/24 Chief Complaint: Shortness of Breath/Dyspnea Stated Complaint: Difficulty breathing Time Seen by Provider: 10/08/24 14:33 Source: patient and EMS Mode of arrival: EMS Limitations: no limitations History of Present Illness HPI Narrative: Patient is a 74-year-old male with a history of COPD, peripheral vascular disease, diabetes, paroxysmal AFib, CABG 2 years prior presenting to the emergency department for shortness of breath. He states yesterday around 18:00 he started feeling short of breath suddenly. He states he produced a lot of mucus at that time and once he was able to blow out his nose he was feeling improvement in his symptoms but was not feeling like he was to his baseline. He states now he just walks from his room to the bathroom when he gets very short of breath. He states this is very abnormal for him usually he moves around without any issues. Does not wear any oxygen at home. Is a current smoker. Denies having shortness of breath like this before. Has not had any chest pain throughout this. When EMS arrived they noticed the swollen legs and with his history it concern for CHF. Nitro was given and he does state he does not of the mitral help with this shortness of breath or for does calm down but he is feeling better. Was satting in the high 80s on room air for EMS prior to arrival. Is also given DuoNeb treatment. She does states he has been having increased swelling of his lower extremities over the past few weeks. Has not had an echocardiogram since before his surgery. No history of blood clots. As having a headache he states both his forehead and the back of his head. Is able to move his neck without pain. Does state it feels little bit stiff the. Denies fevers, chills, weakness, numbness, dizziness, confusion. Related Data Home Medications ?Medication ?Instructions ?Recorded ?Confirmed ascorbic acid (vitamin C) 500 mg 500 mg PO DAILY 07/22/22 10/12/23 capsule vitamin B complex 1 tab PO QDAY 07/22/22 10/12/23 magnesium 250 mg tablet 250 mg PO DAILY 08/02/22 10/12/23 zinc sulfate 50 mg zinc (220 mg) 50 mg PO DAILY 08/02/22 10/12/23 capsule alpha lipoic acid 200 mg capsule 200 mg PO BID 09/04/22 10/12/23 cholecalciferol (vitamin D3) 25 75 mcg PO QDAY 09/04/22 10/12/23 mcg (1,000 unit) capsule glucocil PO BID 09/04/22 10/12/23 potassium gluconate 600 mg (99 mg) 600 mg PO QDAY 09/04/22 10/12/23 tablet levothyroxine 75 mcg tablet 75 mcg PO DAILY 10/08/24 10/08/24 Previous Rx's ?Medication ?Instructions ?Recorded amlodipine 10 mg tablet 10 mg PO QDAY #90 tabs 09/30/23 bisoprolol fumarate 5 mg tablet 2.5 mg (1/2 x 5 mg) PO DAILY #45 09/30/23 tabs clopidogrel 75 mg tablet 75 mg PO QDAY #90 tabs 09/30/23 glipizide 5 mg tablet 5 mg PO BID #180 tabs 09/30/23 hydralazine 25 mg tablet 25 mg PO QID PRN htn #30 tabs 09/30/23 lisinopril 20 mg tablet 20 mg PO DAILY #90 tabs 09/30/23 doxycycline monohydrate 100 mg 100 mg PO BID #14 tabs 10/12/23 tablet apixaban 5 mg tablet (Eliquis) 5 mg PO BID #180 tabs 11/17/23 Allergies Allergy/AdvReac Type Severity Reaction Status Date / Time No Known Drug Allergies Allergy Verified 10/12/23 12:47 Review of Systems Status of ROS: Reports: 10 or more systems reviewed and unremarkable except as noted in History and below [facility] Medical History History of non-ST elevation myocardial infarction (NSTEMI) (06/25/22) ?I25.2 - Old myocardial infarction (ICD-10) History of vitamin D deficiency ?Z86.39 - Personal history of other endocrine, nutritional and metabolic disease (ICD-10) History of TIA (transient ischemic attack) (03/2019) ?Z86.73 - Personal history of transient ischemic attack (TIA), and cerebral infarction without residual deficits (ICD-10) Surgical History History of four vessel coronary artery bypass graft (06/30/22) ?Z95.1 - Presence of aortocoronary bypass graft (ICD-10) History of tonsillectomy ?Z90.89 - Acquired absence of other organs (ICD-10) History of left knee surgery ?Z98.890 - Other specified postprocedural states (ICD-10) Family History Other Adopted person Social History Narrative: , 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, 2 children Exercise walking half a block daily Ex-smoker quit 2021, history of 45 pack years Does not drink alcohol Highest level of school completed/degree received: high school graduate Smoking Status: Current every day smoker What tobacco products do you use: cigarettes Years smoked: 55 Smoking quit date/years: <= 15 years ago Second hand tobacco smoke exposure: No How often do you have a drink containing alcohol: never AUDIT-C Alcohol total score: 0 Non-prescribed substance use: denies use Caffeine: Yes (a cup /day) service: No Exam Narrative: Exam Narrative: Const: Well-nourished, Well-developed, in moderate distress Eyes: PERRL, no conjunctival injection, and symmetrical lids HENT: Atraumatic external nose and ears. Moist mucous membranes. Neck: Symmetric, trachea midline, No thyromegaly. CVS: RRR, No murmurs or gallops. Peripheral pulses 2+ and equal in all extremities, +2 lower extremity pitting edema bilaterally up to the knees RESP: Increased work of breathing, clear to auscultation bilaterally GI: Nontender/Nondistended, No rebound or guarding. MSK:Extremities w/o deformity, Normal Active ROM Skin: Warm, Dry. No rashes or lesions. Neuro: Normal Muscle tone, No focal neurological deficits. Psych: Awake, Alert, & Oriented x3. Appropriate mood and affect. Const: Vital Signs, click to edit/add: Vital Signs - 24 hr 10/08/24 14:36 10/08/24 15:11 10/08/24 15:12 Temperature 98.2 F Pulse Rate 76 77 Pulse Rate [Pulse Oximeter] 75 Respiratory Rate 28 H Blood Pressure 148/73 H Blood Pressure [Ri ght Upper Arm] 117/67 Pulse Oximetry 96 96 96 Oxygen Delivery Me thod Nasal Cannula OxyMask OxyMask Oxygen Flow Rate 2 2 10/08/24 15:15 10/08/24 15:30 10/08/24 15:32 Temperature Pulse Rate 75 71 73 Pulse Rate [Pulse Oximeter] Respiratory Rate Blood Pressure 135/66 Blood Pressure [Ri ght Upper Arm] Pulse Oximetry 96 96 96 Oxygen Delivery Me thod OxyMask OxyMask OxyMask Oxygen Flow Rate 2 2 2 10/08/24 15:45 10/08/24 16:00 10/08/24 16:02 Temperature Pulse Rate 73 72 72 Pulse Rate [Pulse Oximeter] Respiratory Rate Blood Pressure 137/66 Blood Pressure [Ri ght Upper Arm] Pulse Oximetry 94 94 95 Oxygen Delivery Me thod OxyMask OxyMask OxyMask Oxygen Flow Rate 1 1 1 10/08/24 16:18 10/08/24 16:30 10/08/24 16:32 Temperature Pulse Rate 72 72 72 Pulse Rate [Pulse Oximeter] Respiratory Rate Blood Pressure 138/68 Blood Pressure [Ri ght Upper Arm] Pulse Oximetry 92 94 94 Oxygen Delivery Me thod OxyMask OxyMask OxyMask Oxygen Flow Rate 1 1 1 10/08/24 16:45 10/08/24 17:00 10/08/24 17:02 Temperature Pulse Rate 71 75 73 Pulse Rate [Pulse Oximeter] Respiratory Rate Blood Pressure 138/109 H Blood Pressure [Ri ght Upper Arm] Pulse Oximetry 94 94 92 Oxygen Delivery Me thod Oxygen Flow Rate 10/08/24 17:03 10/08/24 17:15 10/08/24 17:33 Temperature Pulse Rate 72 75 73 Pulse Rate [Pulse Oximeter] Respiratory Rate Blood Pressure Blood Pressure [Ri ght Upper Arm] Pulse Oximetry 92 92 89 Oxygen Delivery Me thod Oxygen Flow Rate 10/08/24 17:34 10/08/24 17:35 10/08/24 17:45 Temperature Pulse Rate 73 72 69 Pulse Rate [Pulse Oximeter] Respiratory Rate Blood Pressure 145/72 H Blood Pressure [Ri ght Upper Arm] Pulse Oximetry 90 90 91 Oxygen Delivery Me thod Room Air Room Air Oxygen Flow Rate 10/08/24 18:00 10/08/24 18:02 Temperature Pulse Rate 72 71 Pulse Rate [Pulse Oximeter] Respiratory Rate Blood Pressure 130/64 Blood Pressure [Ri ght Upper Arm] Pulse Oximetry 92 92 Oxygen Delivery Me thod Room Air Room Air Oxygen Flow Rate Course Vital Signs Vital signs: Initial Vital Signs Temperature 98.2 F 10/08/24 14:36 Temperature Source Temporal Artery Scan 10/08/24 14:36 Pulse Rate 75 10/08/24 14:36 Respiratory Rate 28 H 10/08/24 14:36 Blood Pressure 117/67 10/08/24 14:36 Blood Pressure Mean 83 10/08/24 14:36 Blood Pressure Position Supine 10/08/24 14:36 Pulse Oximetry 96 10/08/24 14:36 Oxygen Delivery Method Nasal Cannula 10/08/24 14:36 Vital Signs Temperature 98.2 F 10/08/24 14:36 Pulse Rate 75 10/08/24 14:36 Respiratory Rate 28 H 10/08/24 14:36 Blood Pressure 117/67 10/08/24 14:36 Pulse Oximetry 96 10/08/24 14:36 Oxygen Delivery Method Nasal Cannula 10/08/24 14:36 Temperature 98.2 F 10/08/24 14:36 Pulse Rate 71 10/08/24 18:02 Respiratory Rate 28 H 10/08/24 14:36 Blood Pressure 130/64 10/08/24 18:02 Pulse Oximetry 92 10/08/24 18:02 Oxygen Delivery Method Room Air 10/08/24 18:02 Oxygen Flow Rate 1 10/08/24 16:32 Medications Administered Medications: Discontinued Medications Generic Name Dose Route Start Last Admin Trade Name Freq PRN Reason Stop Dose Admin Acetaminophen 1,000 mg 10/08/24 14:55 10/08/24 15:36 Acetaminophen 500 Mg Tablet PO 10/08/24 14:56 1,000 mg ONCE ONE Administration Methylprednisolone Sodium Succinate 125 mg 10/08/24 16:01 10/08/24 16:17 Methylprednisolone Sod Succ 62.5 Mg/Ml (125) IVP 10/08/24 16:02 125 mg ONCE ONE Administration MDM - SOB/Dyspnea MDM Narrative Medical decision making narrative: Patient is a 74-year-old male presenting to the emergency department for shortness of breath. The differential diagnosis of shortness of breath is broad and includes common etiologies such as COPD, asthma, pneumonia, viral syndrome, etc. More serious etiologies considered include PE, CHF, coronary artery disease, pneumothorax, aortic dissection, aortic aneurysm. With otherwise stable vital signs aortic dissection aortic aneurysm seem unlikely. Were ordered EKG and troponins look for signs of coronary artery disease. D-dimer order to look for signs of PE. Will wait on imaging until D-dimer result returns. BNP ordered for possible CHF. He does have a COPD history but is not currently having any wheezing. Will give Solu-Medrol. Will also test for COVID/flu/RSV. Ordered CBC, CMP. Lab work returned with a normal D-dimer. EKG and troponin showed no concerning findings. Considering length of symptoms I do not believe repeat troponin is necessary at this time. Will order chest x-ray to look for signs of pneumonia or pneumothorax. His BNP is quite elevated and this could be related to CHF. His CBC does have a slightly elevated white blood cell count knee does meet SIRS criteria. Blood culture and lactate ordered. Lactate within normal limits. Chest x-ray shows some atelectasis but no other concerning abnormalities. He is flu positive. Patient was doing well on room air is satting 94%. Nursing staff did ambulate him and while he stated 89%, which is normal for COPD patient's, he was very winded after walking 1 lap around the department. He states he is not normally this when did and felt like he was going to pass out. Due to this I do believe he should be admitted. Hospitalist accepted him for admission. Patient agrees to this plan. Lab Data Labs: Lab Results 10/08/24 10/08/24 10/08/24 Range/Units 15:16 15:16 15:16 WBC 12.02 H (4.50-11.00) K/uL RBC 4.75 (4.30-5.90) m/uL Hgb 13.7 (13.5-17.5) gm/dL Hct 41.1 (37.0-53.0) % MCV 87 (80-100) fL MCH 29 (26-34) pg MCHC 33 (32-36) gm/dL RDW Coeff of Hyacinth 14.5 (11.5-15.5) % Plt Count 281 (140-440) K/uL Neut % (Auto) 91.9 H (42.0-72.0) % Lymph % (Auto) 3.7 L (20-44) % Catahoula % (Auto) 3.9 (0.0-11.0) % Eos % (Auto) 0.1 (0.0-7.0) % Baso % (Auto) 0.2 (0.0-3.0) % Neut # (Auto) 11.00 H (1.7-7.0) K/uL Lymph # (Auto) 0.40 L (0.90-2.90) K/uL Cata[place]oula # (Auto) 0.50 (0.00-0.90) K/UL Eos # (Auto) 0.00 (0.00-0.50) K/uL Baso # (Auto) 0.00 (0.00-0.30) K/uL Abs Immat Gran (auto) 0.00 (0.00-0.30) K/uL Imm/Tot Granulo (auto) 0.2 % D-Dimer Quant (PE/DVT) 0.46 (0.00-0.50) ug/ml Sodium 133 L (135-149) mmol/L Potassium 4.0 (3.6-5.1) mmol/L Chloride 103 (96-114) mmol/L Carbon Dioxide 22 (20-32) mmol/L Anion Gap 8 (7-15) mEq/L BUN 25 (7-30) mg/dL Creatinine 1.7 H (0.5-1.5) mg/dL Estimated Creat Clear 32.76 Estimated GFR 42 ml/min Glucose 275 H (60-115) mg/dL Lactate (0.5-1.9) mmol/L Calcium 8.9 (8.4-10.6) mg/dL Total Bilirubin 0.7 Cancelled (0.1-1.5) mg/dL Direct Bilirubin 0.2 Cancelled (0.0-0.5) mg/dL AST 18 (12-35) U/L ALT (4-50) U/L Alkaline Phosphatase (40-150) U/L Troponin I (0.01-0.04) ng/mL NT-Pro-B Natriuret Pep pg/mL Total Protein (6.0-8.3) g/dL Albumin (3.3-5.0) g/dL SARS-CoV-2 (PCR) (Negative) Influenza Type A (PCR) (Negative) Influenza Type B (PCR) (Negative) RSV (PCR) (Negative) 10/08/24 10/08/24 10/08/24 Range/Units 15:16 15:16 15:16 WBC (4.50-11.00) K/uL RBC (4.30-5.90) m/uL Hgb (13.5-17.5) gm/dL Hct (37.0-53.0) % MCV (80-100) fL MCH (26-34) pg MCHC (32-36) gm/dL RDW Coeff of Hyacinth (11.5-15.5) % Plt Count (140-440) K/uL Neut % (Auto) (42.0-72.0) % Lymph % (Auto) (20-44) % Catahoula % (Auto) (0.0-11.0) % Eos % (Auto) (0.0-7.0) % Baso % (Auto) (0.0-3.0) % Neut # (Auto) (1.7-7.0) K/uL Lymph # (Auto) (0.90-2.90) K/uL Cata[place]oula # (Auto) (0.00-0.90) K/UL Eos # (Auto) (0.00-0.50) K/uL Baso # (Auto) (0.00-0.30) K/uL Abs Immat Gran (auto) (0.00-0.30) K/uL Imm/Tot Granulo (auto) % D-Dimer Quant (PE/DVT) (0.00-0.50) ug/ml Sodium (135-149) mmol/L Potassium (3.6-5.1) mmol/L Chloride (96-114) mmol/L Carbon Dioxide (20-32) mmol/L Anion Gap (7-15) mEq/L BUN (7-30) mg/dL Creatinine (0.5-1.5) mg/dL Estimated Creat Clear Estimated GFR ml/min Glucose (60-115) mg/dL Lactate (0.5-1.9) mmol/L Calcium (8.4-10.6) mg/dL Total Bilirubin (0.1-1.5) mg/dL Direct Bilirubin (0.0-0.5) mg/dL AST Cancelled (12-35) U/L ALT 14 Cancelled (4-50) U/L Alkaline Phosphatase 114 Cancelled (40-150) U/L Troponin I < 0.01 L (0.01-0.04) ng/mL NT-Pro-B Natriuret Pep 1220 pg/mL Total Protein 6.4 (6.0-8.3) g/dL Albumin (3.3-5.0) g/dL SARS-CoV-2 (PCR) (Negative) Influenza Type A (PCR) (Negative) Influenza Type B (PCR) (Negative) RSV (PCR) (Negative) 10/08/24 10/08/24 10/08/24 Range/Units 15:16 15:16 17:05 WBC (4.50-11.00) K/uL RBC (4.30-5.90) m/uL Hgb (13.5-17.5) gm/dL Hct (37.0-53.0) % MCV (80-100) fL MCH (26-34) pg MCHC (32-36) gm/dL RDW Coeff of Hyacinth (11.5-15.5) % Plt Count (140-440) K/uL Neut % (Auto) (42.0-72.0) % Lymph % (Auto) (20-44) % Catahoula % (Auto) (0.0-11.0) % Eos % (Auto) (0.0-7.0) % Baso % (Auto) (0.0-3.0) % Neut # (Auto) (1.7-7.0) K/uL Lymph # (Auto) (0.90-2.90) K/uL Catahoula # (Auto) (0.00-0.90) K/UL Eos # (Auto) (0.00-0.50) K/uL Baso # (Auto) (0.00-0.30) K/uL Abs Immat Gran (auto) (0.00-0.30) K/uL Imm/Tot Granulo (auto) % D-Dimer Quant (PE/DVT) (0.00-0.50) ug/ml Sodium (135-149) mmol/L Potassium (3.6-5.1) mmol/L Chloride (96-114) mmol/L Carbon Dioxide (20-32) mmol/L Anion Gap (7-15) mEq/L BUN (7-30) mg/dL Creatinine (0.5-1.5) mg/dL Estimated Creat Clear Estimated GFR ml/min Glucose (60-115) mg/dL Lactate 1.6 (0.5-1.9) mmol/L Calcium (8.4-10.6) mg/dL Total Bilirubin (0.1-1.5) mg/dL Direct Bilirubin (0.0-0.5) mg/dL AST (12-35) U/L ALT (4-50) U/L Alkaline Phosphatase (40-150) U/L Troponin I (0.01-0.04) ng/mL NT-Pro-B Natriuret Pep pg/mL Total Protein Cancelled (6.0-8.3) g/dL Albumin 3.6 Cancelled (3.3-5.0) g/dL SARS-CoV-2 (PCR) Negative SARS-CoV-2 (Negative) Influenza Type A (PCR) POSITIVE PCR FLU A A (Negative) Influenza Type B (PCR) Negative PCR FLU B (Negative) RSV (PCR) Negative PCR RSV (Negative) Imaging Data Chest x-ray: Attestation: I have reviewed the pertinent imaging results. Radiologist's impression: 1. Mild bibasilar atelectasis. No pneumothorax. Dictated by Yobani Apple MD @ 10/08/2024 4:40:39 PM ECG Data Attestation: I personally reviewed and interpreted this ECG as follows: Prior ECG tracings: available for review Interpretation: Normal sinus rhythm with a rate of 76 beats per minute, normal intervals, normal axis, no ST or T-wave abnormalities. Appears similar previous EKGs on file. Discharge Plan Discharge Clinical Impression: Influenza, COPD exacerbation Patient Disposition: Admitted As Observation Condition: Improved
--- OUTSIDE RECORDS SUMMARY | 2024-10-08 15:19 | XMS_ITS | Continuity of Care Document ---
Author Name [email or web address] Address Unknown Organization Unknown Address Unknown Procedures FILTER APPLIED:Only known Procedures with Onset Date within the last 5 years Procedure Date Procedure Provider Additiona l Information Status ASSAY THYROID STIM HORMONE (62771) Completed ASSAY OF URINE CREATININE (76898) Completed UR ALBUMIN QUANTITATIVE (73379) Completed COMPREHEN METABOLIC PANEL (37115) Completed LIPID PANEL (66905) Comp leted Encounters FILTER APPLIED:Only known Encounters with Admission Date within the last 5 years Encounter Location Admission Discharge Billing Code Healthcare Network Pricing Consultant George bruner Outpatient Chris Felder Outpatient Chris Felder Outpatient Chris Felder
--- OUTSIDE RECORDS SUMMARY | 2024-10-08 15:20 | XMS_ITS | Clinical Summary ---
Author Organization [facility] Address [place], [place] [address] Care Team Providers Care Burr [employer] Operator Name Role Phone Chris Felder MD Primary Care Provider Allergies No known active allergies Medications multivitamin [...] type, unspecified whether angina present, unspecified whether tribal or transplanted heart,S/P CABG (coronary artery bypass [...] on file Legal Sex Male 5:24 AM RN PARALEGAL Gender Identity Not on file Sexual Orientation Not on file Obstetrics History Last Filed Vital Signs Vital Sign Reading Time Taken Comments Blood Pressure 129/78 06/29/2024 12:54 PM CDT Pulse 69 06/29/2024 12:54 PM CDT Temperature 35.4 C (95.8 F) 10/07/2023 3:55 PM RN PARALEGAL Respiratory Rate 16 10/07/2023 3:55 PM RN PARALEGAL Oxygen Saturation 97% 06/29/2024 12:54 PM CDT Inhaled Oxygen Concentration - - Weight 62.7 kg (138 lb 3.2 oz) 06/29/2024 12:54 PM CDT Height 174 cm (5' 8.5) 10/07/2023 10:27 AM RN PARALEGAL Body Mass Index 20.71 10/07/2023 10:27 AM RN PARALEGAL Plan of Treatment Health Maintenance Due Date [...] Completed 02/03/2023 Medical Devices Implanted Type Area Mold Puller Device Identifier Shelf Expiration Date Model / Serial / Lot Tissue Pericardium 0.8x8cm Xenosure - [id number] Implanted:Qty: 1 on 04/27/2023 by Virgilio Reddy MD at [facility] Left: Carotid Artery [employer] 10/17/2028 0.8P8 / / [id number] Procedures Procedure Name Priority Date/Time Associated Diagnosis Comments US AORTA Routine 02/03/2023 11:02 AM CDT PAD (peripheral artery disease) (HC) LIPID PANEL W REFLEX MEASURED LDL Routine 09/28/2019 9:32 AM RN PARALEGAL Dyslipidemia, goal LDL below 70 ANTI HCV Routine 2015 3:10 PM RN PARALEGAL Elevated LFTs from Last 3 Months or [...] aorta Indication: Abdominal aortic aneurysm screening. Technique: Elils scale and color Doppler images of the [...] W REFLEX MEASURED LDL (09/28/2019 9:32 AM RN PARALEGAL) CHOLESTEROL,TOTAL 163 100 - 199 mg/dL 09/28/2019 5:14 PM RN PARALEGAL [facility] TRIGLYCERIDES 141 <150 mg/dL 09/28/2019 5:14 PM RN PARALEGAL [facility] HDL CHOLESTEROL 24(L) >40 mg/dL 0 5:14 PM RN PARALEGAL [facility] NON-HDL CHOLESTEROL 139 <145 mg/dl 09/28/2019 5:14 PM RN PARALEGAL [facility] CHOL/HDL RATIO 6.79(H) <4.50 09/28/2019 5:14 PM RN PARALEGAL [facility] LDL CHOLESTEROL 111 <=130 mg/dL 09/28/2019 5:14 PM RN PARALEGAL [facility] PROVIDER ORDERED STATUS RANDOM 09/28/2019 5:14 PM RN PARALEGAL [facility] Blood BLOOD SPECIMEN / Unknown Venipuncture / Unknown 09/28/2019 9:32 AM RN PARALEGAL 09/28/2019 9:35 AM RN PARALEGAL Ino Zhao MD CHEMISTRY Final Re sult [facility] [address] [place] [address], [place] * ANTI HCV (2015 3:10 PM RN PARALEGAL) HEPATITIS C ANTIBODY Non-Reacti ve Non-Reacti ve 2015 7:58 PM RN PARALEGAL [facility] Blood specimen (specimen) BLOOD SPECIMEN / Unknown Venipuncture / Unknown 2015 3:10 PM RN PARALEGAL 2015 3:10 PM RN PARALEGAL Narrative [facility] - 2015 7:58 PM RN PARALEGAL Antibodies to HCV not detected; does not exclude the possibility of exposure to HCV. Ino Zhao MD SEND OUTS Final Re sult [facility] [address] [place] [address], from Last 3 Months or Most Recently Relevant to Health Maintenance Insurance [facility] MEDICARE ADVANTAGE MR MEDICARE PART A [...] Comments Code Status Discussion: Discussed Care Teams [employer] Operator Relationship Specialty Start Date End Date Chris Felder MD [address] [place] [address] PCP - General Family Practice 04/20/23
[2024-10-08 15:33] LABS: Basophils Percent Auto 0.2 % (0.0-3.0); Eosinophils Percent Auto 0.1 % (0.0-7.0); Hematocrit 41.1 % (37.0-53.0); Hemoglobin* 13.7 gm/dL (13.5-17.5); Immature Granulocytes Pct Auto 0.2 %; Lymphocytes Percent Auto 3.7 % (20-44); Mean Corpuscular HGB Conc 33 gm/dL (32-36); Mean Corpuscular Hemoglobin 29 pg (26-34); Mean Corpuscular Volume 87 fL (80-100); Monocytes Percent Auto 3.9 % (0.0-11.0); Neutrophils Percent Auto 91.9 % (42.0-72.0); Platelet Count* 281 K/uL (140-440); RDW Coefficient of Variation % 14.5 % (11.5-15.5); Red Blood Count 4.75 m/uL (4.30-5.90); White Blood Count* 12.02 K/uL (4.50-11.00)
[2024-10-08 15:34] LABS: Slide Review Reflex No
[2024-10-08] MEDS: ACETAMINOPHEN 500 MG TABLET 1000 MG PO (15:36)
[2024-10-08 15:47] LABS: Albumin* 3.6 g/dL (3.3-5.0); Chloride* 103 mmol/L (96-114); Sodium* 133 mmol/L (135-149)
[2024-10-08 15:49] LABS: Creatinine* 1.7 mg/dL (0.5-1.5); Est. Creatinine Clearance* 32.76; Estimated Glomerular Filt Rate 42 ml/min
[2024-10-08 15:50] LABS: Alanine Aminotransferase* 14 U/L (4-50); Alkaline Phosphatase* 114 U/L (40-150); Anion Gap 8 mEq/L (7-15); Aspartate Amino Transferase* 18 U/L (12-35); Bilirubin Direct* 0.2 mg/dL (0.0-0.5); Bilirubin Total* 0.7 mg/dL (0.1-1.5); Blood Urea Nitrogen* 25 mg/dL (7-30); Carbon Dioxide* 22 mmol/L (20-32); Glucose* 275 mg/dL (60-115); Total Protein* 6.4 g/dL (6.0-8.3)
[2024-10-08 15:51] LABS: Calcium* 8.9 mg/dL (8.4-10.6); D Dimer Quantitative* 0.46 ug/ml (0.00-0.50)
--- NOTE | 2024-10-08 16:00 | CRLHL7_ITS ---
For Patients: As a result of the Cures Act, medical imaging exams and procedure reports are released immediately into your electronic medical record. You may view this report before your referring provider. If you have questions, please contact your health care provider. INDICATION: Difficulty breathing. COMPARISON: Chest x-ray dated 01 August 2022. FINDINGS: PA and lateral chest x-rays show a normal cardiac silhouette. Median sternotomy changes. The lungs show mild bibasilar atelectasis. Bilateral lateral calcified pleural plaques. Biapical pleural thickening. No pneumothorax. Impression : 1. Mild bibasilar atelectasis. No pneumothorax. Dictated by Yobani Apple MD @ 10/08/2024 4:40:39 PM Dictated by: Yobani Apple MD @ 10/08/2024 16:41:09 (Electronically Signed)
[2024-10-08 16:08] LABS: PCR FLU A POSITIVE PCR FLU A (Negative); PCR FLU B Negative PCR FLU B (Negative); PCR RSV Negative PCR RSV (Negative); SARS PCR* Negative SARS-CoV-2 (Negative)
[2024-10-08 16:09] LABS: NT Pro B Type NatriureticPept* 1220 pg/mL; Troponin I* < 0.01 ng/mL (0.01-0.04)
[2024-10-08] MEDS: METHYLPREDNISOLONE SOD SUCC 62.5 MG/ML (125) 125 MG IVP (16:17)
[2024-10-08 17:10] LABS: Lactate* 1.6 mmol/L (0.5-1.9)
--- NOTE | 2024-10-08 18:28 | P.IMHP_ITS ---
Hospitalist- H&P: HPI History of Present Illness Date Seen: 10/08/24 Chief complaint: Difficulty breathing Narrative: Phillip Hernandez is a 74 year old male with chronic lung disease, diabetes and coronary artery disease presents with a 1 day history of rhinorrhea, cough and dyspnea. Symptoms began last evening relatively abruptly. He has not had a fever. He has a history of chronic lung disease. This is been diagnosed as COPD and possibly pulmonary fibrosis in the past. He is a long-time smoker. He is not on any inhaled bronchodilators or COPD specific therapies. He has coronary artery disease and had 4 vessel bypass June 2022. Other vascular treatments include stents in his right leg, left carotid endarterectomy, angioplasty of left posterior tibial and popliteal arteries and right peroneal and TP trunk. In the emergency department he was found to be hypoxic and tachypneic initially. Hypoxia improved in the emergency department. At rest on room air he remained at 90-92% but dropped into the upper 80s with ambulation. He remained very ta chypneic with any activity. Chest x-ray showed findings consistent with pulmonary fibrosis and old calcified pleural plaques. No definite acute infiltrate. Testing for influenza a was positive. He was treated with Solu- Medrol. Review of Systems Narrative: Patient reports generally doing well recently other than above. He does have chronic bilateral lower extremity edema with chronic venous stasis skin changes. No history of blood clotting. He is on chronic Eliquis for peripheral vascular disease and possible history of AFib. [facility] Medical History (Updated 10/08/24 @ 18:57 by Kory Henry MD) Lower extremity venous stasis ?I87.8 - Other specified disorders of veins (ICD-10) Pulmonary fibrosis ?J84.10 - Pulmonary fibrosis, unspecified (ICD-10) GERD (gastroesophageal reflux disease) ?K21.9 - Gastro-esophageal reflux disease without esophagitis (ICD-10) Dyslipidemia ?E78.5 - Hyperlipidemia, unspecified (ICD-10) CKD (chronic kidney disease), stage III ?N18.30 - Chronic kidney disease, stage 3 unspecified (ICD-10) intermission coordinator current use of anticoagulant therapy ?Z79.01 - intermission coordinator (current) use of anticoagulants (ICD-10) Bilateral carotid artery disease ?I77.9 - Disorder of arteries and arterioles, unspecified (ICD-10) CAD (coronary artery disease) ?I25.10 - Atherosclerotic heart disease of [place] coronary artery without angina pectoris (ICD-10) CVA (cerebral vascular accident) ?I63.9 - Cerebral infarction, unspecified (ICD-10) Epididymitis ?N45.1 - Epididymitis (ICD-10) Essential hypertension ?I10 - Essential (primary) hypertension (ICD-10) CAD (coronary artery disease) ?I25.10 - Atherosclerotic heart disease of [place] coronary artery without angina pectoris (ICD-10) Tobacco abuse disorder ?Z72.0 - Tobacco use (ICD-10) COPD (chronic obstructive pulmonary disease) ?J44.9 - Chronic obstructive pulmonary disease, unspecified (ICD-10) PVD (peripheral vascular disease) ?I73.9 - Peripheral vascular disease, unspecified (ICD-10) DM (diabetes mellitus), type 2 ?E11.9 - Type 2 diabetes mellitus without complications (ICD-10) Hypothyroidism ?E03.9 - Hypothyroidism, unspecified (ICD-10) PAF (paroxysmal atrial fibrillation) ?I48.0 - Paroxysmal atrial fibrillation (ICD-10) History of non-ST elevation myocardial infarction (NSTEMI) (06/25/22) ?I25.2 - Old myocardial infarction (ICD-10) History of vitamin D deficiency ?Z86.39 - Personal history of other endocrine, nutritional and metabolic disease (ICD-10) History of TIA (transient ischemic attack) (03/2019) ?Z86.73 - Personal history of transient ischemic attack (TIA), and cerebral infarction without residual deficits (ICD-10) Surgical History History of carotid endarterectomy ?Z98.890 - Other specified postprocedural states (ICD-10) History of four vessel coronary artery bypass graft (06/30/22) ?Z95.1 - Presence of aortocoronary bypass graft (ICD-10) History of tonsillectomy ?Z90.89 - Acquired absence of other organs (ICD-10) History of left knee surgery ?Z98.890 - Other specified postprocedural states (ICD-10) Family History Other Adopted person Social History (Updated 10/08/24 @ 18:46 by Kory Henry MD) Narrative: to his Keesha. She is healthcare power of district attorney. Code status is DNR. 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 Does not drink alcohol. Highest level of school completed/degree received: high school graduate Smoking Status: Current every day smoker What tobacco products do you use: cigarettes Years smoked: 55 Smoking quit date/years: <= 15 years ago Second hand tobacco smoke exposure: No How often do you have a drink containing alcohol: never AUDIT-C Alcohol total score: 0 Non-prescribed substance use: denies use Caffeine: Yes (a cup /day) service: No Meds Home Medications and Allergies Home Medications ?Medication ?Instructions ?Recorded ?Confirmed ?Type ascorbic acid (vitamin C) 500 mg 500 mg PO DAILY 07/22/22 10/12/23 History capsule vitamin B complex 1 tab PO QDAY 07/22/22 10/12/23 History magnesium 250 mg tablet 250 mg PO DAILY 08/02/22 10/12/23 History zinc sulfate 50 mg zinc (220 mg) 50 mg PO DAILY 08/02/22 10/12/23 History capsule alpha lipoic acid 200 mg capsule 200 mg PO BID 09/04/22 10/12/23 History cholecalciferol (vitamin D3) 25 75 mcg PO QDAY 09/04/22 10/12/23 History mcg (1,000 unit) capsule glucocil PO BID 09/04/22 10/12/23 History potassium gluconate 600 mg (99 mg) 600 mg PO QDAY 09/04/22 10/12/23 History tablet levothyroxine 75 mcg tablet 75 mcg PO DAILY 10/08/24 10/08/24 History Allergies Allergy/AdvReac Type Severity Reaction Status Date / Time No Known Drug Allergies Allergy Verified 10/12/23 12:47 Exam Narrative: Exam Narrative: He is alert and appears in no distress except for mildly increased rate of albert athing. Eyes normal. Oropharynx with dry mucous membranes. Dentures in place. Adequate airway. Neck is supple without mass or adenopathy. No jugular venous distension. Respirations with increased rate of breathing. He has diminished breath sounds. Bibasilar inspiratory fine crackles noted. No expiratory wheezing. Fair air exchange in all lung [place]. Cardiovascular: S1, S2, regular rate and rhythm. 2/6 systolic ejection murmur. Abdomen: Bowel sounds active. Abdomen is soft without tenderness or mass. Lower extremities with bilateral 2+ edema. Brawny induration from chronic venous stasis skin changes. No ulcerations or erythema. I cannot palpate dorsalis pedis or posterior tibial pulses feet are slightly cool to touch with adequate capillary refill. Const: Vital Signs, click to edit/add: Vital Signs - 24 hr 10/08/24 14:36 10/08/24 15:11 10/08/24 15:12 Temperature 98.2 F Pulse Rate 76 77 Pulse Rate [Pulse Oximeter] 75 Respiratory Rate 28 H Blood Pressure 148/73 H Blood Pressure [Ri ght Upper Arm] 117/67 Pulse Oximetry 96 96 96 Oxygen Delivery Me thod Nasal Cannula OxyMask OxyMask Oxygen Flow Rate 2 2 10/08/24 15:15 10/08/24 15:30 10/08/24 15:32 Temperature Pulse Rate 75 71 73 Pulse Rate [Pulse Oximeter] Respiratory Rate Blood Pressure 135/66 Blood Pressure [Ri ght Upper Arm] Pulse Oximetry 96 96 96 Oxygen Delivery Me thod OxyMask OxyMask OxyMask Oxygen Flow Rate 2 2 2 10/08/24 15:45 10/08/24 16:00 10/08/24 16:02 Temperature Pulse Rate 73 72 72 Pulse Rate [Pulse Oximeter] Respiratory Rate Blood Pressure 137/66 Blood Pressure [Ri ght Upper Arm] Pulse Oximetry 94 94 95 Oxygen Delivery Me thod OxyMask OxyMask OxyMask Oxygen Flow Rate 1 1 1 10/08/24 16:18 10/08/24 16:30 10/08/24 16:32 Temperature Pulse Rate 72 72 72 Pulse Rate [Pulse Oximeter] Respiratory Rate Blood Pressure 138/68 Blood Pressure [Ri ght Upper Arm] Pulse Oximetry 92 94 94 Oxygen Delivery Me thod OxyMask OxyMask OxyMask Oxygen Flow Rate 1 1 1 10/08/24 16:45 10/08/24 17:00 10/08/24 17:02 Temperature Pulse Rate 71 75 73 Pulse Rate [Pulse Oximeter] Respiratory Rate Blood Pressure 138/109 H Blood Pressure [Ri ght Upper Arm] Pulse Oximetry 94 94 92 Oxygen Delivery Me thod Oxygen Flow Rate 10/08/24 17:03 10/08/24 17:15 10/08/24 17:33 Temperature Pulse Rate 72 75 73 Pulse Rate [Pulse Oximeter] Respiratory Rate Blood Pressure Blood Pressure [Ri t Upper Arm] Pulse Oximetry 92 92 89 Oxygen Delivery Me thod Oxygen Flow Rate 10/08/24 17:34 10/08/24 17:35 10/08/24 17:45 Temperature Pulse Rate 73 72 69 Pulse Rate [Pulse Oximeter] Respiratory Rate Blood Pressure 145/72 H Blood Pressure [Ri ght Upper Arm] Pulse Oximetry 90 90 91 Oxygen Delivery Me thod Room Air Room Air Oxygen Flow Rate 10/08/24 18:00 10/08/24 18:02 Temperature Pulse Rate 72 71 Pulse Rate [Pulse Oximeter] Respiratory Rate Blood Pressure 130/64 Blood Pressure [Ri t Upper Arm] Pulse Oximetry 92 92 Oxygen Delivery Me thod Room Air Room Air Oxygen Flow Rate Documenting provider has reviewed patient's vital signs: yes Hospitalist - H&P: Result Labs Labs: Short CBC 10/08/24 Range/Units 15:16 WBC 12.02 H (4.50-11.00) K/uL Hgb 13.7 (13.5-17.5) gm/dL Hct 41.1 (37.0-53.0) % Plt Count 281 (140-440) K/uL BMP 10/08/24 15:16 Sodium 133 L Potassium 4.0 Chloride 103 Carbon Dioxide 22 BUN 25 Creatinine 1.7 H Glucose 275 H Calcium 8.9 Cardiac Enzymes 10/08/24 Range/Units 15:16 Troponin I < 0.01 L (0.01-0.04) ng/mL Liver Function 10/08/24 10/08/24 10/08/24 Range/Units 15:16 15:16 15:16 Total Bilirubin 0.7 Cancelled (0.1-1.5) mg/dL Direct Bilirubin 0.2 Cancelled (0.0-0.5) mg/dL AST 18 (12-35) U/L ALT (4-50) U/L Alkaline Phosphatase (40-150) U/L Albumin (3.3-5.0) g/dL 10/08/24 10/08/24 10/08/24 Range/Units 15:16 15:16 15:16 Total Bilirubin (0.1-1.5) mg/dL Direct Bilirubin (0.0-0.5) mg/dL AST Cancelled (12-35) U/L ALT 14 Cancelled (4-50) U/L Alkaline Phosphatase 114 Cancelled (40-150) U/L Albumin 3.6 (3.3-5.0) g/dL 10/08/24 Range/Units 15:16 Total Bilirubin (0.1-1.5) mg/dL Direct Bilirubin (0.0-0.5) mg/dL AST (12-35) U/L ALT (4-50) U/L Alkaline Phosphatase (40-150) U/L Albumin Cancelled (3.3-5.0) g/dL ECG Attestation: I personally reviewed and interpreted this ECG as follows: (Normal sinus rhythm, rate of 76, no acute ST-T changes. Otherwise normal.) ECG interpretation date: 10/08/24 Imaging Chest x-ray: Radiologist's impression: INDICATION: Difficulty breathing. COMPARISON: Chest x-ray dated 01 August 2022. FINDINGS: PA and lateral chest x-rays show a normal cardiac silhouette. Median sternotomy changes. The lungs show mild bibasilar atelectasis. Bilateral lateral calcified pleural plaques. Biapical pleural thickening. No pneumothorax. Impression : 1. Mild bibasilar atelectasis. No pneumothorax. Assessment and Plan Assessment and plan (1) Influenza: Problem comment: Patient acutely ill with influenza a. This is causing borderline hypoxic res piratory failure. Initiate renally dosed Tamiflu Status: Acute (2) COPD exacerbation: Problem comment: I favor pulmonary fibrosis over COPD as the primary chronic lung disease. Patient patient reports no benefit from bronchodilators. Continue to assess. Hold on systemic corticosteroids Status: Acute (3) Pulmonary fibrosis: Problem comment: Clinically and radiologically appears to have significant pulmonary fibrosis contributing to his hypoxia Status: Acute (4) Lower extremity venous stasis: Problem comment: Legs have appearance of chronic venous stasis changes. Status: Acute (5) PVD (peripheral vascular disease): Problem comment: seen by [facility] vascular medicine, s/p bilateral lower extremity angiogram with angioplasty 04/11 for critical limb ischemia/toe ulcerations. Currently has adequate circulation but nonpalpable pedal pulses Status: Acute (6) DM (diabetes mellitus), type 2: Problem comment: Noninsulin dependent. Continue oral hypoglycemics. Received Solu-Medrol emergency department so will likely have brief hyperglycemia. Status: Acute (7) Acute kidney injury: Problem comment: Baseline creatinine from 1 year ago 1.3. Today 1.7. Continue to monitor. Renal dose medications. Status: Acute Plan Patient is admitted to the hospital for evaluation treatment of influenza a which is causing hypoxic respiratory failure weakness, loss of appetite. He has early in the course of illness so may progress with symptoms. Total Time Spent Total Time Spent: Total time spent today is 75 minutes in review of outside records, past medical history, discussion with patient and other providers ongoing evaluation management of influenza a and respiratory distress
--- NOTE | 2024-10-08 19:10 | PC.NURSE ---
Pt arrived to the floor at 1818, alert oriented and vitally stable. Pt has SOB w exertion, recovers quickly. Sats 88-90%. Afebrile. at bedside.
[2024-10-08] MEDS: OSELTAMIVIR PHOSPHATE 75 MG CAPSULE PO (19:38)
[2024-10-08] MEDS: glipiZIDE 5 MG TABLET PO (20:10)
[2024-10-08] MEDS: guaiFENesin 100 MG/ML CUP PO (20:10)
[2024-10-08] MEDS: INSULIN ASPART 100 UNIT/ML SUBCUT (21:47)
[2024-10-08] MEDS: APIXABAN 5 MG TABLET PO (21:49)
[2024-10-08] MEDS: SODIUM CHLORIDE 0.9 % (FLUSH) 10 ML SYRINGE 5 ML IVF (21:52)
[2024-10-08] MEDS: ACETAMINOPHEN 325 MG TABLET 650 MG PO (22:05)
[2024-10-09] VITALS (15 sets, daily range): BP systolic 126–161; BP diastolic 61–78; PULSE 73–98; RESP 24–36; TEMP 36.9–37.5; O2SAT 90–97
[2024-10-09] MEDS: guaiFENesin 100 MG/ML CUP PO (01:27)
[2024-10-09] MEDS: ACETAMINOPHEN 325 MG TABLET 650 MG PO ×4 (02:27→21:17)
[2024-10-09 06:29] LABS: HCO3 VBG 21 mmol/L (21-28); PCO2 VBG 46 mmHG (40-50); PO2 VBG 42.8 mmHG (25-47); pH VBG 7.276 (7.32-7.43)
[2024-10-09 06:38] LABS: Basophils Absolute Auto 0.02 K/uL (0.00-0.30); Basophils Percent Auto 0.2 % (0.0-3.0); Hematocrit 41.3 % (37.0-53.0); Hemoglobin* 14.2 gm/dL (13.5-17.5); Immature Granulocytes Abs Auto 0.04 K/uL (0.00-0.30); Immature Granulocytes Pct Auto 0.4 %; Lymphocytes Percent Auto 3.1 % (20-44); Mean Corpuscular HGB Conc 34 gm/dL (32-36); Mean Corpuscular Hemoglobin 30 pg (26-34); Mean Corpuscular Volume 87 fL (80-100); Monocytes Percent Auto 4.3 % (0.0-11.0); Platelet Count* 284 K/uL (140-440); RDW Coefficient of Variation % 14.5 % (11.5-15.5); Red Blood Count 4.75 m/uL (4.30-5.90); White Blood Count* 10.05 K/uL (4.50-11.00)
[2024-10-09 06:45] LABS: Slide Review Reflex No
[2024-10-09 07:04] LABS: Chloride* 102 mmol/L (96-114)
[2024-10-09 07:05] LABS: Potassium* 4.3 mmol/L (3.6-5.1); Sodium* 133 mmol/L (135-149)
[2024-10-09 07:07] LABS: Anion Gap 11 mEq/L (7-15); Carbon Dioxide* 20 mmol/L (20-32); Creatinine* 1.8 mg/dL (0.5-1.5); Est. Creatinine Clearance* 33.94; Estimated Glomerular Filt Rate 40 ml/min
[2024-10-09 07:08] LABS: Blood Urea Nitrogen* 29 mg/dL (7-30); Calcium* 8.7 mg/dL (8.4-10.6); Glucose* 344 mg/dL (60-115)
[2024-10-09 07:16] LABS: Hemoglobin A1C* 10.2 % (0-5.6)
[2024-10-09] MEDS: LEVOTHYROXINE 75 MCG TABLET PO (07:27)
[2024-10-09] MEDS: glipiZIDE 5 MG TABLET PO ×2 (07:27→16:55)
--- NOTE | 2024-10-09 08:05 | PC.NURSE ---
Shift note ([id number]): Patient pleasant alert and oriented. Pt c/o difficulty breathing. Albuterol neb offered. Pt declined reporting that nebs don't help. Pt requesting oxygen. Per Dr Henry Ok for Oxygen but no more than 2 LPM. Pt given PRN cough syrup per standing orders. C/O chest discomfort during?night. EKG performed and showed NSR. PRN Tylenol given for c/o headache and chest discomfort. Stand by assist with ambulation due to occasional lightheadedness. O2 sats decrease to 83-85% on 1 LPM after ambulating to bathroom. Titrated up to 2 LPM for a few minutes to increase sats above 88%, then titrated back down to 1.5 LPM.?
[2024-10-09] MEDS: OSELTAMIVIR 30 MG CAPSULE PO ×2 (08:51→20:53)
[2024-10-09] MEDS: INSULIN ASPART 100 UNIT/ML SUBCUT ×4 (08:52→21:19)
[2024-10-09] MEDS: AMLODIPINE 10 MG TABLET PO (08:52)
[2024-10-09] MEDS: CLOPIDOGREL 75 MG TABLET PO (08:52)
[2024-10-09] MEDS: lisinopriL 20 MG TABLET PO (08:52)
[2024-10-09] MEDS: APIXABAN 5 MG TABLET PO ×2 (08:52→20:54)
[2024-10-09] MEDS: SODIUM CHLORIDE 0.9 % (FLUSH) 10 ML SYRINGE 5 ML IVF ×2 (09:00→20:55)
--- NOTE | 2024-10-09 09:58 | NUTR.NU ---
RDN with nutrition screen for diabetic diet. Patient admitted for influenza A. No oral intakes recorded at this time per import/export administrator. Patient was eating cereal with milk during visit this morning. Patient reports a UBW of ~140lbs. Current weight is at 142lbs with BMI 21.7 kg/m2. Per weight hx weight 145lbs 10/12/23. Weight has remained fairly stable per patient and weight history. Patient declined nutrition education for diabetes and also declined education materials for his reference at this time. No nutrition concerns or interventions at this time. RDN will continue to follow per dept protocol.
--- NOTE | 2024-10-09 10:57 | P.IMPN_ITS ---
Progress Note: A&P Assessment and plan (1) Acute hypoxemic respiratory failure: Problem details: -worsened overnight, significant tachypnea, worse with ambulation -had been 89% in ED, low 90s with oxygen supplementation, appropriate for history of COPD, pulmonary fibrosis -RT evaluated -starting nebs, alternating albuterol and DuoNebs -oral prednisone, received dose of methylprednisolone in ED yesterday, increasing insulin sliding scale for coverage -Lasix, 1st dose ordered, will increase to b.i.d., monitoring response -CT chest ordered showing mix of centrilobular ground-glass opacities and slightly more patchy consolidation in the left lower lobe suggesting a bronchiolitis/early bronchopneumonia. As some areas in the left lower lobe are slightly more rounded, consider follow-up chest CT in 1 month after treatment to exclude an underlying lesion. 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 Mild bronchiectasis right upper lobe -Echo ordered -has been moved to unit care coverage given worsening status, increasing tachypn ea, continue to monitor Status: Acute (2) Influenza: Problem details: -Patient acutely ill with influenza a. This is causing borderline hypoxic respiratory failure. Initiate renally dosed Tamiflu -CT chest showing mix of centrilobular ground-glass opacities and slightly more patchy consolidation in the left lower lobe suggesting a bronchiolitis/early bronchopneumonia Status: Acute (3) COPD exacerbation: Problem details: -Favor pulmonary fibrosis over COPD as the primary chronic lung disease. Patient patient reports no benefit from bronchodilators in the past -CT chest findings as above showing severe centrilobular emphysema with bilateral pleural calcification consistent with asbestos exposure. Mild bronchiectasis right upper lobe -RT discussed role of nebulizers with patient, willing to try given worsening tachypnea -oral steroids, tight management of glucose -oxygen supplementation to maintain saturations > 88%, weaning as able Status: Acute (4) Pulmonary fibrosis: Problem details: Clinically and radiologically appears to have significant pulmonary fibrosis contributing to his hypoxia -outpatient follow-up with pulmonology given CT findings - severe emphysema, asbestos exposure, bronchiectasis (reviewed CT scan from 11/2016 as well) Status: Acute (5) Lower extremity venous stasis: Problem details: Legs have appearance of chronic venous stasis changes. Status: Acute (6) PVD (peripheral vascular disease): Problem details: seen by [facility] vascular medicine, s/p bilateral lower extremity angiogram with angioplasty 04/11 for critical limb ischemia/toe ulcerations. Currently has adequate circulation but nonpalpable pedal pulses Status: Acute (7) DM (diabetes mellitus), type 2: Problem details: Noninsulin dependent. Continue oral hypoglycemics. Received Solu-Medrol emergency department so will likely have brief hyperglycemia. Increased ISS to #3 as starting oral steroids Status: Acute (8) Acute kidney injury: Problem details: -Baseline creatinine from 1 year ago 1.3. 1.7 on admission, currently 1.8. Continue to monitor. Renal dose medications. -will give 500 mL IVF hydration following contrast for CT scan, while continuing diuresis -hold lisinopril Status: Acute (9) CKD (chronic kidney disease), stage III: Problem details: -baseline 1.2-1.5 Status: Chronic (10) PAF (paroxysmal atrial fibrillation): Problem details: CHADS2-VASc >7. On chronic anticoagulation -continue Bisoprolol. Family will need to bring this in -continue apixaban b.i.d. Status: Acute (11) Essential hypertension: Problem details: -continue amlodipine, hold lisinopril given TRISHA Status: Acute (12) Cholelithiasis: Problem details: -incidental finding. CT chest showing Upper abdomen: Density questioned in the gallbladder on the very bottom of the scan, incompletely included. Likely cholelithiasis. -currently, no abdominal pain. Continue to monitor. Outpatient follow-up Status: Acute (13) Peripheral edema: Problem details: -chronic. Currently,+3. Previously on lasix, approximately 2021 -previous echo 2021 shows Final Impressions: 1. Normal left ventricular size, normal wall thickness, normal global systolic function, calculated EF of 70 %. 2. Right ventricular cavity size is normal, global systolic RV function is normal. 3. The aortic valve is trileaflet and sclerotic, no stenosis and no regurgitation. Otherwise normal valvular structures and function. 4. No RVSP due to insufficient TR jet. -compression stockings -Lasix b.i.d. -repeat echo tomorrow Status: Acute Time Spent With Patient Total time spent: Total time spent caring for the patient today was 90 minutes. This includes time spent for the visit reviewing the chart, time spent during the visit, time spent after the visit and documentation and planning in coordination of care. Subjective Date Seen: 10/09/24 Interval history: Patient is seen today sitting up in a chair. Respiratory therapy at bedside. Overnight, increased respiratory rate noted. Notable this morning on 1.5 L NC. Halted speech. Has remained afebrile. Denies chest pain. Tolerating orals. Patient reports having used nebulizers in the past at home. Found that at over time they were no longer effective but seemed to make his breathing worse. Is open to trying nebulizers here in the hospital. Exam Narrative: Exam Narrative: PHYSICAL EXAM General: Pleasant, dyspneic otherwise NAD HEENT: Normocephalic, atraumatic, sclera white, EOMI, oral mucosa moist Cardiovascular: RRR, S1S2. +3 pitting edema Pulmonary: Diffusely diminished without expiratory wheezes, tight, dyspneic, tachypneic, halted speech Neurological: Alert, answering questions appropriately, cranial nerves intact, no focal findings Extremities: No gross joint deformity or swelling. AROMI. Neurovascularly intact Skin: Warm, dry. Const: Vital Signs, click to edit/add: Vital Signs - 24 hr 10/08/24 14:36 10/08/24 15:11 10/08/24 15:12 Temperature 98.2 F Pulse Rate 76 77 Pulse Rate [Pulse Oximeter] 75 Respiratory Rate 28 H Blood Pressure 148/73 H Blood Pressure [Le ft Arm] Blood Pressure [Ri ght Upper Arm] 117/67 Pulse Oximetry 96 96 96 Oxygen Delivery Me thod Nasal Cannula OxyMask OxyMask Oxygen Flow Rate 2 2 10/08/24 15:15 10/08/24 15:30 10/08/24 15:32 Temperature Pulse Rate 75 71 73 Pulse Rate [Pulse Oximeter] Respiratory Rate Blood Pressure 135/66 Blood Pressure [Le ft Arm] Blood Pressure [Ri ght Upper Arm] Pulse Oximetry 96 96 96 Oxygen Delivery Me thod OxyMask OxyMask OxyMask Oxygen Flow Rate 2 2 2 10/08/24 15:45 10/08/24 16:00 10/08/24 16:02 Temperature Pulse Rate 73 72 72 Pulse Rate [Pulse Oximeter] Respiratory Rate Blood Pressure 137/66 Blood Pressure [Le ft Arm] Blood Pressure [Ri ght Upper Arm] Pulse Oximetry 94 94 95 Oxygen Delivery Me thod OxyMask OxyMask OxyMask Oxygen Flow Rate 1 1 1 10/08/24 16:18 10/08/24 16:30 10/08/24 16:32 Temperature Pulse Rate 72 72 72 Pulse Rate [Pulse Oximeter] Respiratory Rate Blood Pressure 138/68 Blood Pressure [Le ft Arm] Blood Pressure [Ri ght Upper Arm] Pulse Oximetry 92 94 94 Oxygen Delivery Me thod OxyMask OxyMask OxyMask Oxygen Flow Rate 1 1 1 10/08/24 16:45 10/08/24 17:00 10/08/24 17:02 Temperature Pulse Rate 71 75 73 Pulse Rate [Pulse Oximeter] Respiratory Rate Blood Pressure 138/109 H Blood Pressure [Le ft Arm] Blood Pressure [Ri ght Upper Arm] Pulse Oximetry 94 94 92 Oxygen Delivery Me thod Oxygen Flow Rate 10/08/24 17:03 10/08/24 17:15 10/08/24 17:33 Temperature Pulse Rate 72 75 73 Pulse Rate [Pulse Oximeter] Respiratory Rate Blood Pressure Blood Pressure [Le ft Arm] Blood Pressure [Ri ght Upper Arm] Pulse Oximetry 92 92 89 Oxygen Delivery Me thod Oxygen Flow Rate 10/08/24 17:34 10/08/24 17:35 10/08/24 17:45 Temperature Pulse Rate 73 72 69 Pulse Rate [Pulse Oximeter] Respiratory Rate Blood Pressure 145/72 H Blood Pressure [Le ft Arm] Blood Pressure [Ri ght Upper Arm] Pulse Oximetry 90 90 91 Oxygen Delivery Me thod Room Air Room Air Oxygen Flow Rate 10/08/24 18:00 10/08/24 18:02 10/08/24 18:19 Temperature 99.2 F Pulse Rate 72 71 Pulse Rate [Pulse Oximeter] 71 Respiratory Rate 20 Blood Pressure 130/64 Blood Pressure [Le ft Arm] 123/65 Blood Pressure [Ri ght Upper Arm] Pulse Oximetry 92 92 90 Oxygen Delivery Me thod Room Air Room Air Room Air Oxygen Flow Rate 10/08/24 18:19 10/08/24 21:50 10/08/24 21:57 Temperature 98.5 F Pulse Rate Pulse Rate [Pulse Oximeter] 80 Respiratory Rate 20 28 H Blood Pressure Blood Pressure [Le ft Arm] 134/67 Blood Pressure [Ri ght Upper Arm] Pulse Oximetry 90 93 Oxygen Delivery Me thod Room Air OxyMask Oxygen Flow Rate 1 10/08/24 22:00 10/08/24 22:20 10/08/24 23:00 Temperature Pulse Rate 87 Pulse Rate [Pulse Oximeter] Respiratory Rate 28 H Blood Pressure Blood Pressure [Le ft Arm] Blood Pressure [Ri ght Upper Arm] Pulse Oximetry 94 Oxygen Delivery Me thod OxyMask Oxygen Flow Rate 1 10/09/24 02:15 Temperature 98.5 F Pulse Rate Pulse Rate [Pulse Oximeter] 73 Respiratory Rate 28 H Blood Pressure Blood Pressure [Le ft Arm] 141/69 H Blood Pressure [Ri ght Upper Arm] Pulse Oximetry 94 Oxygen Delivery Me thod OxyMask Oxygen Flow Rate 1 Labs Labs: Laboratory Results - last 24 hr 10/08/24 10/08/24 10/08/24 15:16 15:16 15:16 WBC 12.02 H RBC 4.75 Hgb 13.7 Hct 41.1 MCV 87 MCH 29 MCHC 33 RDW Coeff of Hyacinth 14.5 Plt Count 281 Neut % (Auto) 91.9 H Lymph % (Auto) 3.7 L [place] % (Auto) 3.9 Eos % (Auto) 0.1 Baso % (Auto) 0.2 Neut # (Auto) 11.00 H Lymph # (Auto) 0.40 L [place] # (Auto) 0.50 Eos # (Auto) 0.00 Baso # (Auto) 0.00 Abs Immat Gran (auto) 0.00 Imm/Tot Granulo (auto) 0.2 D-Dimer Quant (PE/DVT) 0.46 VBG pH VBG pCO2 VBG pO2 VBG HCO3 Sodium 133 L Potassium 4.0 Chloride 103 Carbon Dioxide 22 Anion Gap 8 BUN 25 Creatinine 1.7 H Estimated Creat Clear 32.76 Estimated GFR 42 Glucose 275 H Hemoglobin A1c Lactate Calcium 8.9 Magnesium Total Bilirubin 0.7 Cancelled Direct Bilirubin 0.2 Cancelled AST 18 ALT Alkaline Phosphatase Troponin I NT-Pro-B Natriuret Pep Total Protein Albumin SARS-CoV-2 (PCR) Influenza Type A (PCR) Influenza Type B (PCR) RSV (PCR) 10/08/24 10/08/24 10/08/24 15:16 15:16 15:16 WBC RBC Hgb Hct MCV MCH MCHC RDW Coeff of Hyacinth Plt Count Neut % (Auto) Lymph % (Auto) [place] % (Auto) Eos % (Auto) Baso % (Auto) Neut # (Auto) Lymph # (Auto) [place] # (Auto) Eos # (Auto) Baso # (Auto) Abs Immat Gran (auto) Imm/Tot Granulo (auto) D-Dimer Quant (PE/DVT) VBG pH VBG pCO2 VBG pO2 VBG HCO3 Sodium Potassium Chloride Carbon Dioxide Anion Gap BUN Creatinine Estimated Creat Clear Estimated GFR Glucose Hemoglobin A1c Lactate Calcium Magnesium Total Bilirubin Direct Bilirubin AST Cancelled ALT 14 Cancelled Alkaline Phosphatase 114 Cancelled Troponin I < 0.01 L NT-Pro-B Natriuret Pep 1220 Total Protein 6.4 Albumin SARS-CoV-2 (PCR) Influenza Type A (PCR) Influenza Type B (PCR) RSV (PCR) 10/08/24 10/08/24 10/08/24 15:16 15:16 17:05 WBC RBC Hgb Hct MCV MCH MCHC RDW Coeff of Hyacinth Plt Count Neut % (Auto) Lymph % (Auto) [place] % (Auto) Eos % (Auto) Baso % (Auto) Neut # (Auto) Lymph # (Auto) [place] # (Auto) Eos # (Auto) Baso # (Auto) Abs Immat Gran (auto) Imm/Tot Granulo (auto) D-Dimer Quant (PE/DVT) VBG pH VBG pCO2 VBG pO2 VBG HCO3 Sodium Potassium Chloride Carbon Dioxide Anion Gap BUN Creatinine Estimated Creat Clear Estimated GFR Glucose Hemoglobin A1c Lactate 1.6 Calcium Magnesium Total Bilirubin Direct Bilirubin AST ALT Alkaline Phosphatase Troponin I NT-Pro-B Natriuret Pep Total Protein Cancelled Albumin 3.6 Cancelled SARS-CoV-2 (PCR) Negative SARS-CoV-2 Influenza Type A (PCR) POSITIVE PCR FLU A A Influenza Type B (PCR) Negative PCR FLU B RSV (PCR) Negative PCR RSV 10/09/24 06:21 WBC 10.05 RBC 4.75 Hgb 14.2 Hct 41.3 MCV 87 MCH 30 MCHC 34 RDW Coeff of Hyacinth 14.5 Plt Count 284 Neut % (Auto) 92.0 H Lymph % (Auto) 3.1 L [place] % (Auto) 4.3 Eos % (Auto) 0.0 Baso % (Auto) 0.2 Neut # (Auto) 9.20 H Lymph # (Auto) 0.30 L [place] # (Auto) 0.40 Eos # (Auto) 0.00 Baso # (Auto) 0.02 Abs Immat Gran (auto) 0.04 Imm/Tot Granulo (auto) 0.4 D-Dimer Quant (PE/DVT) VBG pH 7.276 L VBG pCO2 46 VBG pO2 42.8 VBG HCO3 21 Sodium 133 L Potassium 4.3 Chloride 102 Carbon Dioxide 20 Anion Gap 11 BUN 29 Creatinine 1.8 H Estimated Creat Clear 33.94 Estimated GFR 40 Glucose 344 H Hemoglobin A1c 10.2 H Lactate Calcium 8.7 Magnesium 2.0 Total Bilirubin Direct Bilirubin AST ALT Alkaline Phosphatase Troponin I NT-Pro-B Natriuret Pep Total Protein Albumin SARS-CoV-2 (PCR) Influenza Type A (PCR) Influenza Type B (PCR) RSV (PCR) Imaging CT chest from 11/2016: Attestation: I have reviewed the pertinent imaging results. Radiologist's impression: CT scan 11/[address] scan from today 09/2024 1. Extensive bilateral pleural thickening with calcified pleural plaques consistent with prior asbestos exposure. 2. Pulmonary emphysema particularly involving the upper lobes. 3. Findings suggesting subpleural fibrosis extending toward the nam with areas of interstitial thickening unchanged from previous examination. The findings of suggest the possibility of asbestosis. Consider pulmonary consultation. 4. Diffuse bronchial wall thickening may be indicative of chronic bronchitis. 5. Extensive biapical pleural parenchymal scarring similar in appearance compared to previous examination. This was biopsied in the right long in 2009. 6. Old granulomatous disease.
--- NOTE | 2024-10-09 11:13 | CRLHL7_ITS ---
For Patients: As a result of the Century Cures Act, medical imaging exams and procedure reports are released immediately into your electronic medical record. You may view this report before your referring provider. If you have questions, please contact your health care provider. INDICATION: Worsening hypoxia, respiratory failure and dyspnea. TECHNIQUE: CT chest PE was acquired with 95 cc Isovue 370 intravenous contrast. COMPARISON: Chest CT 07/15/2010 FINDINGS: Heart and vasculature: Contrast opacification of the pulmonary arterial tree is adequate. No sign of pulmonary embolism. No pericardial effusion. Moderate coronary atherosclerosis. Thoracic aorta normal in caliber. Lungs and pleural: Bilateral pleural thickening with diffuse pleural calcification consistent with prior asbestos exposure. Biapical pleural-parenchymal scarring with severe centrilobular emphysema. Mild bronchiectasis right upper lobe. Mix of bandlike opacities as well as some slight centrilobular ground-glass opacities. Slightly more patchy consolidation in the left lower lobe. Lymph nodes/mediastinum: Subcentimeter mediastinal lymph nodes. Chest wall: No masses. Upper abdomen: Density questioned in the gallbladder on the very bottom of the scan, incompletely included. Likely cholelithiasis. Bones: Status post median sternotomy. IMPRESSION: 1. No evidence of pulmonary embolus. 2. Mix of centrilobular ground-glass opacities and slightly more patchy consolidation in the left lower lobe suggesting a bronchiolitis/early bronchopneumonia. As some areas in the left lower lobe are slightly more rounded, consider follow-up chest CT in 1 month after treatment to exclude an underlying lesion. 3. 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 Mild bronchiectasis right upper lobe. 4. Likely cholelithiasis without CT evidence of cholecystitis. Please note that all CT scans at this facility use dose modulation, iterative reconstruction, and/or weight-based dosing when appropriate to reduce radiation dose to as low as reasonably achievable. Dictated by Brendon Powers MD @ 10/09/2024 12:24:41 PM (Electronically Signed)
[2024-10-09] MEDS: FUROSEMIDE 10 MG/ML inj 40 MG IVP (12:32)
[2024-10-09] MEDS: predniSONE 20 MG TABLET 40 MG PO (12:33)
[2024-10-09] MEDS: IPRAT-ALBUT 0.5-2.5 MG/3 ML NEB 1 NEB IH ×2 (12:34→20:54)
--- NOTE | 2024-10-09 14:29 | RESP.RT ---
Pt seen this AM. PT in moderate distress. RR 44 Speaking in short halting sentences. BBS diminished and tight. PT reports he does not do nebs, they do not help and actually make him worse. After discussion with myself and hospitalist he agrees to try them today. Will do duoneb and albuterol alternating so pt receives a neb every [address] interp noted. Will start aerobika when pt RR decreases and BBS improve. He is sleeping now, RR remains in upper 20's and shallow. Pt wears oxymask secondary to nasal polyps, can't breath through nose. If pt worsens he would need to go to BIPAP vs HFNC
[2024-10-09] MEDS: ALBUTEROL SULFATE 2.5 MG/3 ML VIAL.NEB NEB (16:55)
--- NOTE | 2024-10-09 19:25 | PC.NURSE ---
Pt pleasant. SOB at rest and exertion. 1-2L Oxymask to keep sats between 88-94% per Dr. and RT. Up independently in room to BR. Pt educated on importance of neb treatment by RT and agreed to try treatment. Pt acknowledges that he feels relief with work of breathing after neb treatments. O2 sats supported this statement with elevated sats numbers. Blood Sugar numbers elevated with use of oral steroids, see CURT, pt educated on use of short acting insulin to help with elevated numbers as well as encouraged high protein, low carb meals.
[2024-10-09 20:52] LABS: C.Difficile Negative (Negative); CDIFFEPI 027 PRESUMPTIVE NEGATIVE (Negative)
[2024-10-09] MEDS: INSULIN GLARGINE,HUM.REC.ANLOG 100 UNIT/ML INSULN.PEN 10 UNIT SUBCUT (21:20)
[2024-10-10] VITALS (38 sets, daily range): BP systolic 99–145; BP diastolic 55–86; PULSE 56–142; RESP 22–32; TEMP 36.9–38.3; O2SAT 84–95
[2024-10-10] MEDS: ALBUTEROL SULFATE 2.5 MG/3 ML VIAL.NEB NEB ×3 (00:47→16:53)
[2024-10-10] MEDS: ACETAMINOPHEN 325 MG TABLET 650 MG PO ×5 (03:06→23:07)
[2024-10-10] MEDS: IPRAT-ALBUT 0.5-2.5 MG/3 ML NEB 1 NEB IH ×3 (04:44→20:00)
[2024-10-10] MEDS: dilTIAZem 5 MG/ML inj 10 MG IVP (06:23)
[2024-10-10 06:53] LABS: Chloride* 102 mmol/L (96-114)
[2024-10-10 06:54] LABS: Potassium* 3.6 mmol/L (3.6-5.1); Sodium* 133 mmol/L (135-149)
[2024-10-10 06:56] LABS: Creatinine* 2.3 mg/dL (0.5-1.5); Est. Creatinine Clearance* 25.85; Estimated Glomerular Filt Rate 29 ml/min
[2024-10-10 06:57] LABS: Anion Gap 8 mEq/L (7-15); Blood Urea Nitrogen* 44 mg/dL (7-30); Carbon Dioxide* 23 mmol/L (20-32); Glucose* 144 mg/dL (60-115); Magnesium* 2.3 mg/dL (1.5-2.6)
[2024-10-10] MEDS: LEVOTHYROXINE 75 MCG TABLET PO (06:58)
[2024-10-10] MEDS: glipiZIDE 5 MG TABLET PO ×2 (06:58→16:53)
--- NOTE | 2024-10-10 07:29 | PC.NURSE ---
End of shift note [id number]: Pt A&Ox4 and able to make needs known. He is transferring/ambulating with SBA in room. Pt has ?been on 1 LPM oxygen via OxyMask when at rest throughout the shift, increased to 1.5 LPM to recover after using bathroom. LS noted to be diminished bilaterally throughout. PRN Tylenol given for c/o headache last evening and also for fever of 100.9 with 0300 VS. Pt tolerating diabetic diet and has had no N/V noted. IV to L AC patent and SL. Pt does have tachypnea and shallow respirations noted though this is not a new finding. Pt was agreeable to performing scheduled neb Txs throughout the shift. Blood glucose of 415 last evening with MD Henry updated. gave orders for insulin and to check BG at 0200. PT took protein drink with 0200 BG check. Blood glucose of 162 at 0700 this morning with day RN updated. Pt has been continent of bladder and bowel throughout the shift. Stool sample sent and negative for C. diff. Pt has ECHO ordered to be completed today. At approximately 0551 it was noted pt's tele was reading A fib. Pt does have hx of A fib. EKG completed with HR of 131 and A fib with RVR result. Pt did state he felt like his heart was racing and stated, I feel like shit when asked. Body Straightener updated Jarad ROD with pt update and EKG results- then gave order for one time Diltiazem IVP. Pt refused to have DARREN heck removed this shift when approached and encouraged. AM dose of Amlodipine being held per MD Thapa. Call light within reach. ?
[2024-10-10] MEDS: SODIUM CHLORIDE 0.9 % (FLUSH) 10 ML SYRINGE 5 ML IVF ×2 (07:30→20:59)
[2024-10-10] MEDS: METOPROLOL TARTRATE 1 MG/ML inj 5 MG IVP ×2 (07:30→08:55)
[2024-10-10] MEDS: INSULIN ASPART 100 UNIT/ML SUBCUT ×3 (08:32→20:55)
[2024-10-10] MEDS: predniSONE 20 MG TABLET 40 MG PO (08:32)
[2024-10-10] MEDS: APIXABAN 5 MG TABLET PO ×2 (08:55→20:49)
[2024-10-10] MEDS: OSELTAMIVIR 30 MG CAPSULE PO (08:55)
[2024-10-10] MEDS: CLOPIDOGREL 75 MG TABLET PO (08:59)
[2024-10-10] MEDS: 0.9 % SODIUM CHLORIDE 500 ML 500 ML IV (09:39)
[2024-10-10] MEDS: dilTIAZem HCL 125 MG in 0.9 % SODIUM CHLORIDE 100 ml 100 ML IVPB (10:43)
[2024-10-10] MEDS: guaiFENesin 100 MG/ML CUP PO (11:07)
[2024-10-10] MEDS: dilTIAZem 30 MG TABLET PO (12:03)
--- NOTE | 2024-10-10 12:37 | PM.IMPN1 ---
Progress Note: A&P Assessment and plan (1) Acute hypoxemic respiratory failure: Problem details: -worsened overnight, significant tachypnea, worse with ambulation -had been 89% in ED, low 90s with oxygen supplementation, appropriate for history of COPD, pulmonary fibrosis -RT evaluated -starting nebs, alternating albuterol and DuoNebs -oral prednisone, received dose of methylprednisolone in ED yesterday, increasing insulin sliding scale for coverage -Lasix, 1st dose ordered, will increase to b.i.d., monitoring response -CT chest ordered showing mix of centrilobular ground-glass opacities and slightly more patchy consolidation in the left lower lobe suggesting a bronchiolitis/early bronchopneumonia. As some areas in the left lower lobe are slightly more rounded, consider follow-up chest CT in 1 month after treatment to exclude an underlying lesion. 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 Mild bronchiectasis right upper lobe -Echo ordered -has been moved to unit care coverage given worsening status, increasing tachypnea, continue to monitor 10/10: RT reporting improved breathing, remaining tachypneic with ambulation. Started aerobika Status: Acute (2) Influenza: Problem details: -Patient acutely ill with influenza a. This is causing borderline hypoxic respiratory failure. Initiate renally dosed Tamiflu -CT chest showing mix of centrilobular ground-glass opacities and slightly more patchy consolidation in the left lower lobe suggesting a bronchiolitis/early bronchopneumonia 10/10: Change Tamiflu to 30 mg once daily given worsening TRISHA Status: Acute (3) COPD exacerbation: Problem details: -Favor pulmonary fibrosis over COPD as the primary chronic lung disease on admission. 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 Mild bronchiectasis right upper lobe -RT discussed role of nebulizers with patient, willing to try given worsening tachypnea -oral steroids, tight management of glucose -oxygen supplementation to maintain saturations > 88%, weaning as able Status: Acute (4) Pulmonary fibrosis: Problem details: Clinically and radiologically appears to have significant pulmonary fibrosis contributing to his hypoxia -outpatient follow-up with pulmonology given CT findings - severe emphysema, asbestos exposure, bronchiectasis (reviewed CT scan from 11/2016 as well) Status: Acute (5) Lower extremity venous stasis: Problem details: Legs have appearance of chronic venous stasis changes. Status: Acute (6) PVD (peripheral vascular disease): Problem details: seen by [facility] vascular medicine, s/p bilateral lower extremity angiogram with angioplasty 04/11 for critical limb ischemia/toe ulcerations. Currently has adequate circulation but nonpalpable pedal pulses Status: Acute (7) DM (diabetes mellitus), type 2: Problem details: Noninsulin dependent. Continue oral hypoglycemics. Received [facility] emergency department so will likely have brief hyperglycemia. Increased ISS to #3 as starting oral steroids 10/10: Glucose readings < 150 thus far today Status: Acute (8) Acute kidney injury: Problem details: -Baseline creatinine from 1 year ago 1.3. 1.7 on admission, currently 1.8. Continue to monitor. Renal dose medications. -will give 500 mL IVF hydration following contrast for CT scan, while continuing diuresis -hold lisinopril 10/10: Creatinine 2.3. CTA chest with contrast yesterday. Diabetic, not on metformin. Holding lisinopril. Adjusted Tamiflu for renal dosing. Discussed with pharmacy. NS 500 mL bolus. 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 Encourage oral hydration Status: Acute (9) CKD (chronic kidney disease), stage III: Problem details: -baseline 1.2-1.5 Status: Chronic (10) PAF (paroxysmal atrial fibrillation): Problem details: CHADS2-VASc >7. On chronic anticoagulation -continue Bisoprolol q.a.m., using own supply -continue apixaban b.i.d. Status: Acute (11) Atrial fibrillation with RVR: Problem details: -onset this am, approx 0600, >130 HR -patient reports receiving p.o. dose bisoprolol last night -has been tachypneic, receiving albuterol and DuoNebs, steroids -attempted IV bumps metoprolol without success -diltiazem drip initiated, converted to NSR, EKG confirmed, at 10mg -started oral diltiazem 30 q.6 hours Status: Acute (12) Essential hypertension: Problem details: -continue amlodipine, hold lisinopril given TRISHA -holding amlodipine while managing AFib RVR Status: Acute (13) Peripheral edema: Problem details: -chronic. Currently,+3. Previously on lasix, approximately 2021 -previous echo 2021 shows Final Impressions: 1. Normal left ventricular size, normal wall thickness, normal global systolic function, calculated EF of 70 %. 2. Right ventricular cavity size is normal, global systolic RV function is normal. 3. The aortic valve is trileaflet and sclerotic, no stenosis and no regurgitation. Otherwise normal valvular structures and function. 4. No RVSP due to insufficient TR jet. -compression stockings - removing 30 minutes q shift per protocol -received 1 dose IV Lasix 10/09 - will hold further doses for now while managing AFib and in setting of worsening TRISHA -repeat echo pending Status: Acute (14) Cholelithiasis: Problem details: -incidental finding. CT chest showing Upper abdomen: Density questioned in the gallbladder on the very bottom of the scan, incompletely included. Likely cholelithiasis. -currently, no abdominal pain. Continue to monitor. Outpatient follow-up Status: Acute Time Spent With Patient Total time spent: Total time spent caring for the patient today was 75 minutes. This includes time spent for the visit reviewing the chart, time spent during the visit, time spent after the visit and documentation and planning in coordination of care. Subjective Date Seen: 10/10/24 Interval history: Patient is seen lying reclined in bed. Appears anxious. Has been in AFib with RVR since early this morning. Currently tachypneic. Denies headache or dizziness. Denies chest pain. Has not been nauseous or vomiting. Family brought in his beta-félix last night and he took his 1st dose. Has been receiving scheduled nebs and steroids in setting of acute hypoxic respiratory failure. TRISHA has worsened. Received contrast for CTA chest yesterday. Is a diabetic not on metformin. Renally adjusting medications. Exam Narrative: Exam Narrative: PHYSICAL EXAM General: Pleasant, dyspneic otherwise NAD HEENT: Normocephalic, atraumatic, sclera white, EOMI, oral mucosa moist Cardiovascular: RRR, S1S2. +3 pitting edema improved but remains Pulmonary: Diffusely diminished without expiratory wheezes, dyspneic, tachypneic Neurological: Alert, answering questions appropriately, cranial nerves intact, no focal findings Extremities: No gross joint deformity or swelling. AROMI. Neurovascularly intact Skin: Warm, dry. Const: Vital Signs, click to edit/add: Vital Signs - 24 hr 10/09/24 13:16 10/09/24 13:18 10/09/24 15:00 Temperature Pulse Rate Pulse Rate [Pulse Oximeter] 92 Respiratory Rate 30 H Blood Pressure [Le ft Arm] Pulse Oximetry 97 97 Oxygen Delivery Me thod Oxygen Flow Rate 2 1 10/09/24 15:00 10/09/24 15:00 10/09/24 15:40 Temperature Pulse Rate 84 Pulse Rate [Pulse Oximeter] 90 Respiratory Rate 30 H 30 H Blood Pressure [Le ft Arm] Pulse Oximetry 92 97 Oxygen Delivery Me thod OxyMask OxyMask Oxygen Flow Rate 1 1 10/09/24 17:00 10/09/24 19:00 10/09/24 19:28 Temperature 99.4 F 99.5 F Pulse Rate Pulse Rate [Pulse Oximeter] 85 78 77 Respiratory Rate 34 H 32 H 32 H Blood Pressure [Le ft Arm] 127/69 126/69 Pulse Oximetry 92 93 Oxygen Delivery Me thod OxyMask OxyMask Oxygen Flow Rate 1.5 1 10/09/24 19:39 10/09/24 21:27 10/09/24 22:22 Temperature 99.3 F Pulse Rate 73 Pulse Rate [Pulse Oximeter] 78 Respiratory Rate 24 24 Blood Pressure [Le ft Arm] 128/61 Pulse Oximetry 90 92 Oxygen Delivery Me thod OxyMask OxyMask Oxygen Flow Rate 1 1 10/09/24 22:55 10/09/24 22:55 10/09/24 23:00 Temperature 99.2 F Pulse Rate 84 Pulse Rate [Pulse Oximeter] 80 80 Respiratory Rate 28 H 28 H Blood Pressure [Le ft Arm] 161/78 H Pulse Oximetry 90 Oxygen Delivery Me thod OxyMask Oxygen Flow Rate 1 10/10/24 00:50 10/10/24 00:57 10/10/24 03:00 Temperature 99.6 F Pulse Rate Pulse Rate [Pulse Oximeter] 78 68 Respiratory Rate 32 H 28 H Blood Pressure [Le ft Arm] 138/71 Pulse Oximetry 84 L 90 Oxygen Delivery Me thod OxyMask OxyMask Oxygen Flow Rate 1 10/10/24 03:05 10/10/24 03:06 10/10/24 03:10 Temperature 100.9 F H 100.9 F H Pulse Rate 74 Pulse Rate [Pulse Oximeter] 68 Respiratory Rate 28 H Blood Pressure [Le ft Arm] 127/55 L Pulse Oximetry 93 Oxygen Delivery Me thod OxyMask Oxygen Flow Rate 1 10/10/24 04:43 10/10/24 04:58 10/10/24 05:51 Temperature 99.5 F 99.5 F Pulse Rate 136 H Pulse Rate [Pulse Oximeter] 82 Respiratory Rate 28 H Blood Pressure [Le ft Arm] 138/75 Pulse Oximetry 89 Oxygen Delivery Me thod OxyMask Oxygen Flow Rate 1 10/10/24 05:57 10/10/24 06:32 10/10/24 07:30 Temperature 98.8 F Pulse Rate 120 H 136 H Pulse Rate [Pulse Oximeter] 142 H Respiratory Rate 24 Blood Pressure [Le ft Arm] 145/86 H Pulse Oximetry 93 Oxygen Delivery Me thod OxyMask Oxygen Flow Rate 1 10/10/24 07:30 10/10/24 07:30 10/10/24 07:39 Temperature Pulse Rate Pulse Rate [Pulse Oximeter] 136 H 113 H Respiratory Rate 28 H 28 H 28 H Blood Pressure [Le ft Arm] 119/73 Pulse Oximetry 91 87 L Oxygen Delivery Me thod OxyMask OxyMask Oxygen Flow Rate 2 1 10/10/24 09:30 10/10/24 11:35 Temperature 99.4 F Pulse Rate 65 Pulse Rate [Pulse Oximeter] 140 H Respiratory Rate 28 H Blood Pressure [Le ft Arm] 99/67 Pulse Oximetry 90 Oxygen Delivery Me thod OxyMask Oxygen Flow Rate 2 Labs Labs: Laboratory Results - last 24 hr 10/09/24 10/10/24 19:41 06:09 Sodium 133 L Potassium 3.6 Chloride 102 Carbon Dioxide 23 Anion Gap 8 BUN 44 H Creatinine 2.3 H Estimated Creat Clear 25.85 Estimated GFR 29 Glucose 144 H Calcium 8.0 L Magnesium 2.3 Stl C. diff Tox B Gene Negative Stl C. diff [id number] PRESUMPTIVE NEGATIVE
--- NOTE | 2024-10-10 13:06 | RESP.RT ---
Able to initiate aerobika today. RR stable after pt converted from Afib. RR 22, I:E ratio much improved. neb given with aerobika and pt did well with that. He is tolerating nebs, and admits he thinks they have helped. BBS still diminished and coarse. Continue with frequent aerobika as tolerates. 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 Still hypoxic, Saturations decrease quickly down to mid 80's when off of oxyen. Using low flow oxygen via oxymask.
[2024-10-10] MEDS: BENZONATATE 100 MG CAPSULE PO ×2 (14:19→20:49)
[2024-10-10] MEDS: PERFLUTREN LIPID MICROSPHERES 2 ML VIAL IVP (14:36)
--- NOTE | 2024-10-10 15:23 | PC.NURSE ---
AT BEGINNING OF SHIFT, PATIENT'S TELE AFIB WITH RVR. HEART RATES 120-140'S AT REST AND UP TO 150-180'S WITH ACTIVITY. AT THAT TIME, PATIENT SOB AT REST AND WITH EXERTION AND RR 24-30 AT REST AND 40'S WHEN UP TO COMMODE. PATIENT FEBRILE AND RECEIVED TYLENOL TWICE THIS SHIFT. PATIENT RECEIVED METOPROLOL IV TWICE THIS AM WITH LITTLE IMPROVEMENT OF HEART RATE. PATIENT ALSO TOOK HOME BETA-JAIR. STARTED DILTIAZEM DRIP AT 5ML/HR AT 1050. AT 1130, PATIENT CONVERTED TO NSR WITH HEART RATE 60'S. DRIP STOPPED AND DILTIAZEM PO ADMINISTERED PER MD ORDER. PATIENT'S O2 SATS 86-94% 2L PER OXYMASK. SATS DECREASE TO 75-80% WITH OXYMASK WITH ACTIVITY. PATIENT CONTINUES TO HAVE FREQUENT PRODUCTIVE COUGH AND RECEIVED PRN GUIAFENESIN AND SCHEDULED TESSALON PEARLS. PATIENT ALSO RECEIVING NEBS AND WORKING ON [employer].
--- NOTE | 2024-10-10 18:35 | PC.NURSE ---
(Shift 15-19) - Pt alert and oriented. Pt pleasant and cooperative. Pt up with SBA to bedside commode/BR. Pt has SOB with exertion. Pt has been coughing but it has not been productive. Pt is on 2 Liters via oximask; ?per RT Pt?s saturations should be 86-94%. Pt?s VSS; Pt?s pulse has been between 55-71 during shift?reported to MD see EMAR for held medications. Pt's at bedside. ?
[2024-10-10] MEDS: INSULIN GLARGINE,HUM.REC.ANLOG 100 UNIT/ML INSULN.PEN 10 UNIT SUBCUT (20:54)
[2024-10-11] VITALS (32 sets, daily range): BP systolic 89–138; BP diastolic 48–82; PULSE 63–163; RESP 20–30; TEMP 36.6–37.7; O2SAT 89–94
[2024-10-11] MEDS: ALBUTEROL SULFATE 2.5 MG/3 ML VIAL.NEB NEB ×4 (00:57→23:59)
[2024-10-11] MEDS: IPRAT-ALBUT 0.5-2.5 MG/3 ML NEB 1 NEB IH ×3 (04:12→20:14)
[2024-10-11] MEDS: ACETAMINOPHEN 325 MG TABLET 650 MG PO ×2 (05:54→09:36)
[2024-10-11] MEDS: LEVOTHYROXINE 75 MCG TABLET PO (05:54)
--- NOTE | 2024-10-11 06:30 | PC.NURSE ---
End of shift note : Pt A&Ox4 and able to make needs known. He has been on 0.5-2 LPM oxygen via OxyMask throughout the shift to maintain O2 sats 86-94% per RT as pt has hx of COPD. O2 sat noted to be 81% on 1.5 LPM after pt got up to toilet which required oxygen to be increased to 2 LPM. Pt noted to have low grade fever and was given PRN Tylenol. Tele in place with NSR noted. Pt continent of bladder. He transfers/ambulates in room with SBA though has shortness of breath with exertion. No c/o CP or N/V noted. Blood glucose of 375 last citlali with insulins given per MD orders. Scheduled neb treatments administered per orders with Aerobika used. Call light within reach. ?
[2024-10-11 06:36] LABS: HCO3 VBG 24 mmol/L (21-28); PCO2 VBG 50 mmHG (40-50); PO2 VBG < 30.1 mmHG (25-47); pH VBG 7.295 (7.32-7.43)
[2024-10-11 06:42] LABS: Hematocrit 44.7 % (37.0-53.0); Hemoglobin* 15.1 gm/dL (13.5-17.5); Mean Corpuscular HGB Conc 34 gm/dL (32-36); Mean Corpuscular Hemoglobin 29 pg (26-34); Mean Corpuscular Volume 86 fL (80-100); Platelet Count* 243 K/uL (140-440); Red Blood Count 5.21 m/uL (4.30-5.90); White Blood Count* 7.54 K/uL (4.50-11.00)
[2024-10-11 06:49] LABS: Slide Review Reflex No
[2024-10-11] MEDS: glipiZIDE 5 MG TABLET PO ×2 (06:53→17:23)
[2024-10-11 07:12] LABS: Chloride* 101 mmol/L (96-114); Potassium* 3.7 mmol/L (3.6-5.1); Sodium* 134 mmol/L (135-149)
[2024-10-11 07:15] LABS: Anion Gap 9 mEq/L (7-15); Blood Urea Nitrogen* 60 mg/dL (7-30); Carbon Dioxide* 24 mmol/L (20-32); Creatinine* 2.5 mg/dL (0.5-1.5); Estimated Glomerular Filt Rate 27 ml/min; Glucose* 199 mg/dL (60-115)
[2024-10-11 07:16] LABS: Calcium* 8.1 mg/dL (8.4-10.6)
[2024-10-11] MEDS: CLOPIDOGREL 75 MG TABLET PO (08:41)
[2024-10-11] MEDS: BENZONATATE 100 MG CAPSULE PO ×3 (08:41→20:14)
[2024-10-11] MEDS: APIXABAN 5 MG TABLET PO ×2 (08:41→20:14)
[2024-10-11] MEDS: predniSONE 20 MG TABLET 40 MG PO (08:42)
[2024-10-11] MEDS: FUROSEMIDE 10 MG/ML inj 40 MG IVP (08:42)
[2024-10-11] MEDS: INSULIN ASPART 100 UNIT/ML SUBCUT ×3 (08:43→20:21)
[2024-10-11] MEDS: SODIUM CHLORIDE 0.9 % (FLUSH) 10 ML SYRINGE 5 ML IVF ×2 (08:53→20:15)
[2024-10-11] MEDS: OSELTAMIVIR 30 MG CAPSULE PO (08:59)
[2024-10-11] MEDS: dilTIAZem 5 MG/ML inj 10 MG IVP (09:31)
[2024-10-11] MEDS: dilTIAZem 120 MG CAP.ER.24H PO (10:02)
--- NOTE | 2024-10-11 10:49 | PM.IMPN1 ---
Progress Note: A&P Assessment and plan (1) Acute hypoxemic respiratory failure: Problem details: -worsened overnight, significant tachypnea, worse with ambulation -had been 89% in ED, low 90s with oxygen supplementation, appropriate for history of COPD, pulmonary fibrosis -RT evaluated -starting nebs, alternating albuterol and DuoNebs -oral prednisone, received dose of methylprednisolone in ED yesterday, increasing insulin sliding scale for coverage -Lasix, 1st dose ordered, will increase to b.i.d., monitoring response -CT chest ordered showing mix of centrilobular ground-glass opacities and slightly more patchy consolidation in the left lower lobe suggesting a bronchiolitis/early bronchopneumonia. As some areas in the left lower lobe are slightly more rounded, consider follow-up chest CT in 1 month after treatment to exclude an underlying lesion. 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 Mild bronchiectasis right upper lobe -has been moved to unit care coverage given worsening status, increasing tachypnea, continue to monitor - back to med surg floor status 10/11 -Echo shows 1. Normal left ventricular size, mildly increased wall thickness, normal global systolic function, calculated EF of 63 %. 2. Echo contrast was administered to enhance visualization of all left ventricular segments. 3. Right ventricular cavity size is normal, global systolic RV function is normal. 4. Normal left atrium size. 5. The aortic valve is normal, no stenosis and no regurgitation. 6. The mitral valve is normal, trace mitral regurgitation. 7. Tricuspid valve is normal. 8. No pericardial effusion. 10/10: RT reporting improved breathing, remaining tachypneic with ambulation. Started aerobika. Continue alternating nebs q 8 hours, prednisone. Status: Acute (2) Influenza: Problem details: -Patient acutely ill with influenza a. This is causing borderline hypoxic respiratory failure. Initiate renally dosed Tamiflu -CT chest showing mix of centrilobular ground-glass opacities and slightly more patchy consolidation in the left lower lobe suggesting a bronchiolitis/early bronchopneumonia 10/10: Change Tamiflu to 30 mg once daily given worsening TRISHA - discontinued 10/11 secondary to ongoing worsening TRISHA Status: Acute (3) COPD exacerbation: Problem details: -Favor pulmonary fibrosis over COPD as the primary chronic lung disease on admission. 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 Mild bronchiectasis right upper lobe -RT discussed role of nebulizers with patient, willing to try given worsening tachypnea -oral steroids, tight management of glucose -oxygen supplementation to maintain saturations > 88%, weaning as able Status: Acute (4) Pulmonary fibrosis: Problem details: Clinically and radiologically appears to have significant pulmonary fibrosis contributing to his hypoxia -outpatient follow-up with pulmonology given CT findings as previously recommended - severe emphysema, asbestos exposure, bronchiectasis (reviewed CT scan from 11/2016 as well) Status: Acute (5) Lower extremity venous stasis: Problem details: Legs have appearance of chronic venous stasis changes. Status: Acute (6) PVD (peripheral vascular disease): Problem details: seen by [facility] vascular medicine, s/p bilateral lower extremity angiogram with angioplasty 04/11 for critical limb ischemia/toe ulcerations. Currently has adequate circulation but nonpalpable pedal pulses Status: Acute (7) DM (diabetes mellitus), type 2: Problem details: Noninsulin dependent. Continue oral hypoglycemics. Received [facility] emergency department so will likely have brief hyperglycemia. Increased ISS to #3 as starting oral steroids 10/10: Glucose readings < 150 thus far today Status: Acute (8) Acute kidney injury: Problem details: -Baseline creatinine from 1 year ago 1.3. 1.7 on admission, currently 1.8. Continue to monitor. Renal dose medications. -will give 500 mL IVF hydration following contrast for CT scan, while continuing diuresis -hold lisinopril 10/10: Creatinine 2.3. CTA chest with contrast yesterday. Diabetic, not on metformin. Holding lisinopril. Adjusted Tamiflu for renal dosing. Discussed with pharmacy. NS 500 mL bolus. Could consider another dose of Lasix but will recheck inspector aligning following these changes. Encourage oral hydration 10/11: Creatinine 2.5. Stop Tamiflu. Giving dose Lasix x 1. Starting gentle IV hydration, monitoring for fluid overload Status: Acute (9) CKD (chronic kidney disease), stage III: Problem details: -baseline 1.2-1.5 Status: Chronic (10) PAF (paroxysmal atrial fibrillation): Problem details: CHADS2-VASc >7. On chronic anticoagulation -continue Bisoprolol q.a.m., using own supply -continue apixaban b.i.d. Status: Acute (11) Atrial fibrillation with RVR: Problem details: -onset this am, approx 0600, >130 HR -patient reports receiving p.o. dose bisoprolol last night -has been tachypneic, receiving albuterol and DuoNebs, steroids -attempted IV bumps metoprolol without success -diltiazem drip initiated, converted to NSR, EKG confirmed, at 10mg -started oral diltiazem 30 q.6 hours - this was d/c'd evening 10/10 due to HR 56-57 10/11: recurrence of afib with RVR, HR >150. Improved to 100 with diltiazem 10mg IV. Started oral dilt 120mg q am. Continue bisopropolol 2.5mg. Status: Acute (12) Essential hypertension: Problem details: -continue amlodipine, hold lisinopril given TRISHA -holding amlodipine while managing AFib RVR Status: Acute (13) Peripheral edema: Problem details: -chronic. Currently,+3. Previously on lasix, approximately 2021 -previous echo 2021 shows Final Impressions: 1. Normal left ventricular size, normal wall thickness, normal global systolic function, calculated EF of 70 %. 2. Right ventricular cavity size is normal, global systolic RV function is normal. 3. The aortic valve is trileaflet and sclerotic, no stenosis and no regurgitation. Otherwise normal valvular structures and function. 4. No RVSP due to insufficient TR jet. -compression stockings - removing 30 minutes q shift per protocol -received 1 dose IV Lasix 10/09 and 10/11 -repeat echo as above Status: Acute (14) Cholelithiasis: Problem details: -incidental finding. CT chest showing Upper abdomen: Density questioned in the gallbladder on the very bottom of the scan, incompletely included. Likely cholelithiasis. -currently, no abdominal pain. Continue to monitor. Outpatient follow-up Status: Acute Time Spent With Patient Total time spent: Total time spent caring for the patient today was 60 minutes. This includes time spent for the visit reviewing the chart, time spent during the visit, time spent after the visit and documentation and planning in coordination of care. Subjective Date Seen: 10/11/24 Interval history: Patient is seen sitting up in bed this morning. Overall, while appears tired, does appear to be improving. Much less dyspneic. Speaking with less halting. Smiling. Continues to have intermittent fevers. Reports feeling exhausted but is also optimistic that he has been improving. Denies headache or dizziness. Denies chest pain. Tolerating orals without nausea. Ambulating still short distances as he still becomes tachypneic with ambulation. Yesterday morning, patient was noted to be in AFib with RVR. This was eventually managed with IV diltiazem drip and converted to oral immediate release diltiazem. Later in the day yesterday, heart rate was noted to be 56-57 (this isn't new to him from previous hospitalizations) so his oral diltiazem was discontinued. This morning, patient again went into AFib with RVR. He was given 110 mg IV dose of diltiazem which controlled his rate to the low 100s. He was then started on diltiazem 120 mg once daily. Exam Narrative: Exam Narrative: PHYSICAL EXAM General: Appears tired but otherwise NAD Cardiovascular: Initially RRR but tachy with IRRR on reeval. Pitting edema improving Pulmonary: Diffusely diminished without expiratory wheezes, slightly improving, dyspneic, improving. Intermittent tachypnea Neurological: Alert, answering questions appropriately, cranial nerves intact, no focal findings Extremities: No gross joint deformity or swelling. AROMI. Neurovascularly intact Skin: Warm, dry. Const: Vital Signs, click to edit/add: Vital Signs - 24 hr 10/10/24 10:50 10/10/24 11:00 10/10/24 11:00 Temperature 98.8 F Pulse Rate Pulse Rate [Pulse Oximeter] 127 H 122 H 122 H Respiratory Rate 26 H 26 H Blood Pressure [Le ft Arm] 125/83 120/73 Blood Pressure [Ri ght Arm] Pulse Oximetry 91 Oxygen Delivery Me thod OxyMask Oxygen Flow Rate 2 10/10/24 11:20 10/10/24 11:30 10/10/24 11:35 Temperature Pulse Rate 65 Pulse Rate [Pulse Oximeter] 71 62 Respiratory Rate 26 H Blood Pressure [Le ft Arm] 121/71 120/75 Blood Pressure [Ri ght Arm] Pulse Oximetry 94 Oxygen Delivery Me thod OxyMask Oxygen Flow Rate 2 10/10/24 11:50 10/10/24 14:00 10/10/24 15:17 Temperature 98.5 F Pulse Rate 56 L Pulse Rate [Pulse Oximeter] 62 62 Respiratory Rate 22 Blood Pressure [Le ft Arm] 120/71 111/65 Blood Pressure [Ri ght Arm] Pulse Oximetry 90 Oxygen Delivery Me thod OxyMask Oxygen Flow Rate 2 10/10/24 15:30 10/10/24 15:30 10/10/24 15:38 Temperature 99.1 F Pulse Rate Pulse Rate [Pulse Oximeter] 56 L 57 L Respiratory Rate 22 22 22 Blood Pressure [Le ft Arm] 107/59 L Blood Pressure [Ri ght Arm] Pulse Oximetry 95 95 Oxygen Delivery Me thod OxyMask OxyMask Oxygen Flow Rate 2 2 10/10/24 16:57 10/10/24 18:02 10/10/24 18:54 Temperature 99.3 F 99.3 F 98.7 F Pulse Rate Pulse Rate [Pulse Oximeter] 68 73 Respiratory Rate 24 24 Blood Pressure [Le ft Arm] 120/66 122/75 Blood Pressure [Ri ght Arm] Pulse Oximetry 90 92 Oxygen Delivery Me thod OxyMask OxyMask Oxygen Flow Rate 2 2 10/10/24 19:00 10/10/24 19:02 10/10/24 19:56 Temperature 99.4 F Pulse Rate 65 Pulse Rate [Pulse Oximeter] 73 Respiratory Rate 24 Blood Pressure [Le ft Arm] Blood Pressure [Ri ght Arm] Pulse Oximetry Oxygen Delivery Me thod Oxygen Flow Rate 10/10/24 20:59 10/10/24 22:30 10/10/24 22:44 Temperature 99.4 F Pulse Rate 67 Pulse Rate [Pulse Oximeter] 72 Respiratory Rate 24 24 Blood Pressure [Le ft Arm] 123/59 L Blood Pressure [Ri ght Arm] Pulse Oximetry 89 90 Oxygen Delivery Me thod OxyMask OxyMask Oxygen Flow Rate 0.5 1.5 10/10/24 23:00 10/10/24 23:07 10/10/24 23:09 Temperature 99.6 F 99.6 F Pulse Rate Pulse Rate [Pulse Oximeter] 70 70 Respiratory Rate 24 24 Blood Pressure [Le ft Arm] 119/62 Blood Pressure [Ri ght Arm] Pulse Oximetry 91 Oxygen Delivery Me thod OxyMask Oxygen Flow Rate 1.5 10/11/24 01:00 10/11/24 03:00 10/11/24 03:10 Temperature 99.4 F 98.7 F Pulse Rate Pulse Rate [Pulse Oximeter] 66 70 70 Respiratory Rate 24 22 22 Blood Pressure [Le ft Arm] 121/58 L Blood Pressure [Ri ght Arm] 138/60 Pulse Oximetry 90 90 Oxygen Delivery Me thod OxyMask OxyMask Oxygen Flow Rate 1.5 1.5 10/11/24 03:19 10/11/24 04:30 10/11/24 05:54 Temperature 99.1 F 99.9 F H Pulse Rate 77 Pulse Rate [Pulse Oximeter] 73 Respiratory Rate 24 Blood Pressure [Le ft Arm] 126/56 L Blood Pressure [Ri ght Arm] Pulse Oximetry 91 Oxygen Delivery Me thod OxyMask Oxygen Flow Rate 1.5 10/11/24 06:55 10/11/24 07:00 10/11/24 07:30 Temperature 99.4 F Pulse Rate 65 Pulse Rate [Pulse Oximeter] 70 66 Respiratory Rate 24 24 Blood Pressure [Le ft Arm] Blood Pressure [Ri ght Arm] 107/56 L Pulse Oximetry 91 Oxygen Delivery Me thod OxyMask Oxygen Flow Rate 2 10/11/24 07:30 10/11/24 07:30 10/11/24 09:30 Temperature 98.9 F 99.4 F Pulse Rate Pulse Rate [Pulse Oximeter] 66 136 H Respiratory Rate 24 24 28 H Blood Pressure [Le ft Arm] Blood Pressure [Ri ght Arm] 113/48 L 128/82 Pulse Oximetry 90 91 91 Oxygen Delivery Me thod OxyMask OxyMask OxyMask Oxygen Flow Rate 2 2 2 10/11/24 10:00 Temperature Pulse Rate 104 H Pulse Rate [Pulse Oximeter] Respiratory Rate Blood Pressure [Le ft Arm] Blood Pressure [Ri ght Arm] Pulse Oximetry Oxygen Delivery Me thod Oxygen Flow Rate Labs Labs: Laboratory Results - last 24 hr 10/11/24 06:00 WBC 7.54 RBC 5.21 Hgb 15.1 Hct 44.7 MCV 86 MCH 29 MCHC 34 Plt Count 243 VBG pH 7.295 L VBG pCO2 50 VBG pO2 < 30.1 VBG HCO3 24 Sodium 134 L Potassium 3.7 Chloride 101 Carbon Dioxide 24 Anion Gap 9 BUN 60 H Creatinine 2.5 H Estimated Creat Clear 23.60 Estimated GFR 27 Glucose 199 H Calcium 8.1 L
[2024-10-11] MEDS: 0.9 % SODIUM CHLORIDE 1000 ml 1,000 ML 100 ML IV ×2 (12:10→23:59)
[2024-10-11] MEDS: dilTIAZem 30 MG TABLET PO (17:23)
[2024-10-11] MEDS: DIGOXIN 250 MCG/ML inj 500 MCG IV (17:35)
[2024-10-11] MEDS: ADENOSINE 6 MG/2ML INJ IVP ×2 (17:50→17:55)
--- NOTE | 2024-10-11 18:35 | PC.NURSE ---
Addendum entered by Tawana Keita RN 10/11/24 18:44: Blood sugar was 303, 12 units given. Original Note: End of Shift: Patient pleasant and cooperative. Patient vitally stable but tachycardic with soft blood pressures, lungs diminished, BS WNL, IV running NS at 100. Patient denies pain and is SBA to commode to urinate. Patient is on 2 L oxymask with sats in the low 90s. Patient tolerating fluids but does not have appetite. Patient was given PRN Cardizem at 1723 as pulse was in the 150s, after that a CCU nurse administered Digoxin at 1735, since then CCU nurse took over care for patient to control HR. CCU nurse administered two doses of adenosine, EKG showed patient was in A. flutter, patient currently has HR in the 80s-90s.
--- NOTE | 2024-10-11 18:39 | P.CCN_ITS ---
Subjective Subjective Date Seen: 10/11/24 Principal diagnosis: A flutter with RVR Interval history: 74-year-old male admitted to the hospital with influenza a and hypoxia with pulmonary fibrosis. Patient has been in and out of AFib over the last couple days. He has gotten rate control with diltiazem but has relatively low blood pressures when getting enough diltiazem for rate control. Episodically is back into a sinus rhythm. During the day today his blood pressures were relatively soft and his heart rate was borderline elevated. He received long-acting diltiazem and was put on p.r.n. short-acting diltiazem. This evening he flipped into a regular narrow complex tachycardia with a rate around 160. He was given digoxin 500 mcg IV. He continued to have a narrow complex regular tachycardia. Suspecting this could be SVT verses a flutter with RVR he received adenosine which unmasked a flutter. He has been on chronic Eliquis. He has also been on very low-dose bisoprolol since his bypass surgery years ago. I spoke with Cardiology yoel. They agreed with the plan of loading him with amiodarone. He probably only needs short-term amiodarone, 1-2 months. This current episode of AFib may be primarily related to his acute illness. If need ing some additional heart rate control during this hospitalization will use digoxin. 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 For now I am going to stop his diltiazem and bisoprolol. It would be reasonable to resume the bisoprolol when he goes off amiodarone in the future. Objective Objective Data Details: He is alert and in no distress. He reports feeling a little lightheaded. He felt poorly for a few seconds swell the adenosine cause temporary heart block. Through this procedure the vital signs remained stable and he remained alert and oriented. Assessment and Plan Assessment and plan (1) Atrial flutter with rapid ventricular response: Problem comment: Load with amiodarone IV tonight and continue oral amiodarone 200 mg daily as outpatient for 1-2 months pending outpatient followup. Temporarily hold bisoprolol. Continue Eliquis Status: Acute (2) Atrial fibrillation with RVR: Problem comment: -onset this am, approx 0600, >130 HR -patient reports receiving p.o. dose bisoprolol last night -has been tachypneic, receiving albuterol and DuoNebs, steroids -attempted IV bumps metoprolol without success -diltiazem drip initiated, converted to NSR, EKG confirmed, at 10mg -started oral diltiazem 30 q.6 hours - this was d/c'd evening 10/10 due to HR 56- 57 10/11: recurrence of afib with RVR, HR >150. Improved to 100 with diltiazem 10mg IV. Started oral dilt 120mg q am. Continue bisopropolol 2.5mg. Status: Acute (3) CAD (coronary artery disease): Status: Acute Plan Amiodarone load, monitoring in CCU tonight. Total Time Spent Total Time Spent: Total time spent in critical care evaluation and management is 50 minutes tonight
[2024-10-11] MEDS: AMIODARONE 50 MG/ML inj 150 MG in 5 % DEXTROSE 100 ML 100 ML 618 MG IVPB (19:27)
[2024-10-11] MEDS: AMIODARONE INFUSION 360 MG/200 ML PLAST..BAG 33 MG IV (19:43)
[2024-10-11] MEDS: INSULIN GLARGINE,HUM.REC.ANLOG 100 UNIT/ML INSULN.PEN 10 UNIT SUBCUT (20:20)
--- NOTE | 2024-10-11 20:25 | PC.NURSE ---
Patient heart rate in the 150s-160s. MD in the room. IV Digoxin given per MD. EKG done. Adenosine 6 mg given x2 per MD and repeat EKG done. Heart rate decreased to 80-110 and tele showing a-fib/a-flutter. Denies pain. O2 sats 94% on 1L oxymask.
[2024-10-12] VITALS (24 sets, daily range): BP systolic 108–174; BP diastolic 57–97; PULSE 56–109; RESP 20–32; TEMP 36.8–37.2; O2SAT 87–91
[2024-10-12] MEDS: AMIODARONE INFUSION 360 MG/200 ML PLAST..BAG 16.5 MG IV (01:30)
[2024-10-12] MEDS: IPRAT-ALBUT 0.5-2.5 MG/3 ML NEB 1 NEB IH ×3 (04:06→20:27)
[2024-10-12] MEDS: LEVOTHYROXINE 75 MCG TABLET PO (05:51)
[2024-10-12] MEDS: ACETAMINOPHEN 325 MG TABLET 650 MG PO (05:51)
[2024-10-12] MEDS: glipiZIDE 5 MG TABLET PO ×2 (05:51→18:17)
[2024-10-12] MEDS: guaiFENesin 100 MG/ML CUP PO ×2 (06:30→19:12)
--- NOTE | 2024-10-12 06:38 | PC.NURSE ---
19-: pleasant and cooperative. Calls appropriately. SBA to BSC, pt weak, becomes SOB with activity, pt does desat into the low 80s with activity, takes 2 mins to recover with rest. Pt up to void frequently, increasing O2 to 4L with activity. Pt on 2L Oxy mask, O2 sats 85-91% at rest. Crackles auscultated in lung bases. Nonproductive moist cough, encouraging aerobika & IS use. Amiodarone drip initiated at start of shift. HR 50s-150s till around 0100. Pts HR around 0045 elevated to 150s & was sustaining for several mins, EKG performed ? A Flutter with Rapid Ventricular rate. At end of shift, HR in 70s-80s, via tele ? NSR. Amiodarone drip continues at 16.5mL/hr. Weight increased 4lbs from yesterday's weight. Per pt having loose dark stools, blood noted on toilet paper, Jarad ROD updated, received order for Fecal Occult Blood, still needing stool sample as last stool was only a smear. Prn Tylenol given for abd/chest pain d/t coughing. Prn guaifenesin given for cough. ?
[2024-10-12 06:54] LABS: Chloride* 104 mmol/L (96-114); Sodium* 131 mmol/L (135-149)
[2024-10-12 06:55] LABS: Potassium* 3.3 mmol/L (3.6-5.1)
[2024-10-12 06:57] LABS: Anion Gap 9 mEq/L (7-15); Carbon Dioxide* 18 mmol/L (20-32); Creatinine* 2.6 mg/dL (0.5-1.5); Est. Creatinine Clearance* 23.35; Estimated Glomerular Filt Rate 25 ml/min
[2024-10-12 06:58] LABS: Blood Urea Nitrogen* 54 mg/dL (7-30); Calcium* 7.1 mg/dL (8.4-10.6); Glucose* 282 mg/dL (60-115)
[2024-10-12] MEDS: predniSONE 20 MG TABLET 40 MG PO (07:23)
[2024-10-12] MEDS: INSULIN ASPART 100 UNIT/ML SUBCUT ×4 (07:23→20:38)
[2024-10-12 07:58] LABS: Albumin* 2.4 g/dL (3.3-5.0)
[2024-10-12 08:01] LABS: Phosphorus* 4.2 mg/dL (2.5-4.5)
[2024-10-12] MEDS: BENZONATATE 100 MG CAPSULE PO ×3 (09:03→20:36)
[2024-10-12] MEDS: CLOPIDOGREL 75 MG TABLET PO (09:03)
[2024-10-12] MEDS: APIXABAN 5 MG TABLET PO ×2 (09:03→20:36)
[2024-10-12] MEDS: SODIUM CHLORIDE 0.9 % (FLUSH) 10 ML SYRINGE 5 ML IVF ×2 (09:03→19:13)
[2024-10-12] MEDS: ALBUTEROL SULFATE 2.5 MG/3 ML VIAL.NEB NEB ×2 (09:04→18:17)
[2024-10-12 09:31] LABS: Hematocrit 38.8 % (37.0-53.0); Hemoglobin* 13.2 gm/dL (13.5-17.5); Mean Corpuscular HGB Conc 34 gm/dL (32-36); Mean Corpuscular Hemoglobin 29 pg (26-34); Mean Corpuscular Volume 85 fL (80-100); Platelet Count* 190 K/uL (140-440); Red Blood Count 4.55 m/uL (4.30-5.90); White Blood Count* 6.44 K/uL (4.50-11.00)
[2024-10-12 09:31] LABS: Lab Add On Test New Spec Needed
[2024-10-12 09:32] LABS: Slide Review Reflex No
[2024-10-12 09:47] LABS: Ionized Calcium* 1.04 mmol/L (1.11-1.30)
[2024-10-12] MEDS: POTASSIUM CHLORIDE 10 MEQ CAPSULE ER 40 MEQ PO (09:57)
[2024-10-12] MEDS: AMIODARONE 200 MG TABLET PO (09:58)
[2024-10-12] MEDS: 0.9 % SODIUM CHLORIDE 1000 ml 1,000 ML 100 ML IV ×2 (09:58→20:29)
[2024-10-12] MEDS: CALCIUM GLUC 1,000MG/50 ML 1,000 MG/50 ML BAG 100 MG IVPB (10:59)
[2024-10-12] MEDS: ALBUMIN HUMAN 25% 25 GM/100 ML VIAL IVPB (11:36)
--- NOTE | 2024-10-12 13:20 | P.IMPN_ITS ---
Progress Note: A&P Assessment and plan (1) Acute hypoxemic respiratory failure: Problem details: -worsened overnight, significant tachypnea, worse with ambulation -had been 89% in ED, low 90s with oxygen supplementation, appropriate for history of COPD, pulmonary fibrosis -RT evaluated -starting nebs, alternating albuterol and DuoNebs -oral prednisone, received dose of methylprednisolone in ED yesterday, increasing insulin sliding scale for coverage -Lasix, 1st dose ordered, will increase to b.i.d., monitoring response -CT chest ordered showing mix of centrilobular ground-glass opacities and slightly more patchy consolidation in the left lower lobe suggesting a bronchiolitis/early bronchopneumonia. As some areas in the left lower lobe are slightly more rounded, consider follow-up chest CT in 1 month after treatment to exclude an underlying lesion. 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 Mild bronchiectasis right upper lobe -has been moved to unit care coverage given worsening status, increasing tachypnea, continue to monitor - back to med surg floor status 10/11 -Echo shows 1. Normal left ventricular size, mildly increased wall thickness, normal global systolic function, calculated EF of 63 %. 2. Echo contrast was administered to enhance visualization of all left ventricular segments. 3. Right ventricular cavity size is normal, global systolic RV function is normal. 4. Normal left atrium size. 5. The aortic valve is normal, no stenosis and no regurgitation. 6. The mitral valve is normal, trace mitral regurgitation. 7. Tricuspid valve is normal. 8. No pericardial effusion. 10/10: RT reporting improved breathing, remaining tachypneic with ambulation. Started aerobika. Continue alternating nebs q 8 hours, prednisone. 10/12: Continues to slowly improve, continuing scheduled nebs, incentive spir ometry, aerobika, mucinex, day 4/5 prednisone. Blood culture negative Status: Acute (2) Influenza: Problem details: -Patient acutely ill with influenza a. This is causing borderline hypoxic respiratory failure. Initiate renally dosed Tamiflu -CT chest showing mix of centrilobular ground-glass opacities and slightly more patchy consolidation in the left lower lobe suggesting a bronchiolitis/early bronchopneumonia 10/10: Change Tamiflu to 30 mg once daily given worsening TRISHA - discontinued 10/11 secondary to ongoing worsening TRISHA Continue symptomatic cares. No longer on Tamiflu. Status: Acute (3) COPD exacerbation: Problem details: -Favor pulmonary fibrosis over COPD as the primary chronic lung disease on admission. 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 Mild bronchiectasis right upper lobe -RT discussed role of nebulizers with patient, willing to try given worsening tachypnea -oral steroids, tight management of glucose -oxygen supplementation to maintain saturations > 88%, weaning as able Status: Acute (4) Pulmonary fibrosis: Problem details: Clinically and radiologically appears to have significant pulmonary fibrosis co ntributing to his hypoxia -outpatient follow-up with pulmonology given CT findings as previously recommended - severe emphysema, asbestos exposure, bronchiectasis (reviewed CT scan from 11/2016 as well) Status: Acute (5) Lower extremity venous stasis: Problem details: Legs have appearance of chronic venous stasis changes. Status: Acute (6) PVD (peripheral vascular disease): Problem details: seen by [facility] vascular medicine, s/p bilateral lower extremity angiogram with angioplasty 04/11 for critical limb ischemia/toe ulcerations. Currently has adequate circulation but nonpalpable pedal pulses Status: Acute (7) DM (diabetes mellitus), type 2: Problem details: Noninsulin dependent. Continue oral hypoglycemics. Re[facility] so will likely have brief hyperglycemia. Increased ISS to #3 as starting oral steroids 10/10: Glucose readings < 150 thus far today 10/12: will increase ISS to #4 for better control, increase glargine to 12 units Status: Acute (8) Acute kidney injury: Problem details: -Baseline creatinine from 1 year ago 1.3. 1.7 on admission, currently 1.8. Continue to monitor. Renal dose medications. -will give 500 mL IVF hydration following contrast for CT scan, while continuing diuresis -hold lisinopril 10/10: Creatinine 2.3. CTA chest with contrast yesterday. Diabetic, not on metformin. Holding lisinopril. Adjusted Tamiflu for renal dosing. Discussed with pharmacy. NS 500 mL bolus. Could consider another dose of Lasix but will recheck manager training following these changes. Encourage oral hydration 10/11: Creatinine 2.5. Stop Tamiflu. Giving dose Lasix x 1. Starting gentle IV hydration, monitoring for fluid overload 10/12: Creatinine 2.6. Very likely cardiorenal given poor control of breathing and ventricular rate, recurrent AFib with RVR, in setting of acute infection and severe chronic pulmonary disease, . Continuing to work on improving the knees, bringing them under control. Have started gentle IVF, monitoring for fluid overload. Will give dose of albumin. Have reviewed meds with pharmacy, renal dosing, holding those are that are nephrotoxic. BUN downtrending. Hgb stable. Stool occult blood to be collected for questionable stool appearance Status: Acute (9) CKD (chronic kidney disease), stage III: Problem details: -baseline 1.2-1.5 Status: Chronic (10) PAF (paroxysmal atrial fibrillation): Problem details: CHADS2-VASc >7. On chronic anticoagulation -continue Bisoprolol q.a.m., using own supply - DISCONTINUED. May consider restarting at a later date with PCP -continue apixaban b.i.d. Status: Acute (11) Atrial fibrillation with RVR: Problem details: -onset this am, approx 0600, >130 HR -patient reports receiving p.o. dose bisoprolol last night -has been tachypneic, receiving albuterol and DuoNebs, steroids -attempted IV bumps metoprolol without success -diltiazem drip initiated, converted to NSR, EKG confirmed, at 10mg -started oral diltiazem 30 q.6 hours - this was d/c'd evening 10/10 due to HR 56- 57 10/11: recurrence of afib with RVR, HR >150. Improved to 100 with diltiazem 10mg IV. Started oral dilt 120mg q am. Continue bisopropolol 2.5mg. 10/12: recurrence again yesterday. Cardiology reviewed. Started on amiodarone drip with good rate control. Starting oral amiodarone 200 mg daily. Also given 1 dose IV digoxin. Consider further dosing if recurrence of RVR despite amiodarone. Diltiazem discontinued. Bisopropolol discontinued, could be restarted at a later date with PCP. Status: Acute (12) Essential hypertension: Problem details: -continue amlodipine, hold lisinopril given TRISHA -holding amlodipine while managing AFib RVR Status: Acute (13) Peripheral edema: Problem details: -chronic. Currently,+3. Previously on lasix, approximately 2021 -previous echo 2021 shows Final Impressions: 1. Normal left ventricular size, normal wall thickness, normal global systolic function, calculated EF of 70 %. 2. Right ventricular cavity size is normal, global systolic RV function is normal. 3. The aortic valve is trileaflet and sclerotic, no stenosis and no regurgitation. Otherwise normal valvular structures and function. 4. No RVSP due to insufficient TR jet. -compression stockings - removing 30 minutes q shift per protocol -received 1 dose IV Lasix 10/09 and 10/11 -repeat echo as above Status: Acute (14) Cholelithiasis: Problem details: -incidental finding. CT chest showing Upper abdomen: Density questioned in the gallbladder on the very bottom of the scan, incompletely included. Likely cholelithiasis. -currently, no abdominal pain. Continue to monitor. Outpatient follow-up Status: Acute (15) Hypokalemia: Problem details: -potassium 3.3, supplement with oral replacement, recheck in a.m. Status: Acute (16) Hypocalcemia: Problem details: -calcium 7.1, ionized calcium 1.04, low normal. Supplement with 1 g IV calcium gluconate. Monitor -phosphorus 4.2, albumin 2.4 Status: Acute (17) Hyponatremia: Problem details: -mild, 131, monitor Status: Acute Time Spent With Patient Total time spent: Total time spent caring for the patient today was 60 minutes. This includes time spent for the visit reviewing the chart, time spent during the visit, time spent after the visit and documentation and planning in coordination of care. Subjective Date Seen: 10/12/24 Interval history: Patient is seen sitting up in bed this morning, eating some breakfast. [id number], Keila, is on speaker phone. Smiling, reports feeling a bit better. No headache or dizziness. Tachypnea improving at rest, worsens with activity. Went into AFib with RVR again last evening. Colleague discussed with Cardiology. Started amiodarone drip and will convert to oral amiodarone today. Diltiazem has been discontinued. Bisopropolol discontinued for now. Did receive 1 dose of IV digoxin as well. Rate has remained stable overnight. Currently requiring 4 L per N/C oxygen supplementation. Has remained afebrile for the past 24 hours. Exam Narrative: Exam Narrative: PHYSICAL EXAM General: Appears brighter this morning, less tachypneic, NAD Cardiovascular: RRR. Pitting edema improving Pulmonary: Diffusely diminished without expiratory wheezes, slightly improving, dyspneic, improving, coarse cough noted Neurological: Alert, answering questions appropriately, cranial nerves intact, no focal findings Extremities: No gross joint deformity or swelling. AROMI. Neurovascularly intact Skin: Warm, dry. Const: Vital Signs, click to edit/add: Vital Signs - 24 hr 10/11/24 14:00 10/11/24 15:17 10/11/24 15:44 Temperature 97.8 F 99 F Pulse Rate 63 Pulse Rate [Pulse Oximeter] 109 H 105 H Respiratory Rate 28 H 30 H Blood Pressure [Le ft Arm] 91/61 89/67 L Blood Pressure [Ri ght Arm] Pulse Oximetry 91 93 Oxygen Delivery Me thod OxyMask OxyMask Oxygen Flow Rate 2 2 10/11/24 15:44 10/11/24 15:44 10/11/24 15:50 Temperature Pulse Rate Pulse Rate [Pulse Oximeter] 95 95 Respiratory Rate 30 H 30 H Blood Pressure [Le ft Arm] 98/67 Blood Pressure [Ri ght Arm] Pulse Oximetry 93 Oxygen Delivery Me thod OxyMask Oxygen Flow Rate 2 10/11/24 17:21 10/11/24 17:34 10/11/24 17:35 Temperature Pulse Rate 160 H Pulse Rate [Pulse Oximeter] 160 H 160 H Respiratory Rate 20 Blood Pressure [Le ft Arm] 96/69 Blood Pressure [Ri ght Arm] 96/68 Pulse Oximetry 91 Oxygen Delivery Me thod OxyMask Oxygen Flow Rate 2 10/11/24 17:42 10/11/24 17:52 10/11/24 17:56 Temperature Pulse Rate Pulse Rate [Pulse Oximeter] 161 H 159 H 163 H Respiratory Rate Blood Pressure [Le ft Arm] Blood Pressure [Ri ght Arm] 106/78 93/74 102/72 Pulse Oximetry Oxygen Delivery Me thod Oxygen Flow Rate 10/11/24 18:17 10/11/24 18:25 10/11/24 18:54 Temperature 99.6 F Pulse Rate 101 H Pulse Rate [Pulse Oximeter] 94 84 Respiratory Rate 20 Blood Pressure [Le ft Arm] Blood Pressure [Ri ght Arm] 104/69 93/68 Pulse Oximetry 94 Oxygen Delivery Me thod OxyMask Oxygen Flow Rate 1 10/11/24 19:03 10/11/24 19:30 10/11/24 19:30 Temperature 98.3 F Pulse Rate 89 Pulse Rate [Pulse Oximeter] 91 Respiratory Rate 20 20 Blood Pressure [Le ft Arm] Blood Pressure [Ri ght Arm] Pulse Oximetry 93 Oxygen Delivery Me thod OxyMask Oxygen Flow Rate 1 10/11/24 20:00 10/11/24 21:00 10/11/24 22:00 Temperature Pulse Rate Pulse Rate [Pulse Oximeter] 109 H 120 H 76 Respiratory Rate 20 20 20 Blood Pressure [Le ft Arm] Blood Pressure [Ri ght Arm] 101/59 L 91/74 109/73 Pulse Oximetry 90 90 91 Oxygen Delivery Me thod OxyMask OxyMask OxyMask Oxygen Flow Rate 2 2 2 10/11/24 22:38 10/11/24 22:38 10/11/24 22:46 Temperature Pulse Rate 68 Pulse Rate [Pulse Oximeter] Respiratory Rate 20 20 Blood Pressure [Le ft Arm] Blood Pressure [Ri ght Arm] Pulse Oximetry 89 Oxygen Delivery Me thod OxyMask Oxygen Flow Rate 2 10/11/24 23:00 10/12/24 00:00 10/12/24 01:00 Temperature 99 F 98.6 F Pulse Rate Pulse Rate [Pulse Oximeter] 79 80 108 H Respiratory Rate 20 24 Blood Pressure [Le ft Arm] Blood Pressure [Ri ght Arm] 114/62 115/63 123/70 Pulse Oximetry 90 90 Oxygen Delivery Me thod OxyMask OxyMask Oxygen Flow Rate 2 2 10/12/24 02:00 10/12/24 02:26 10/12/24 03:00 Temperature 98.6 F Pulse Rate 65 Pulse Rate [Pulse Oximeter] 109 H 69 Respiratory Rate 20 Blood Pressure [Le ft Arm] Blood Pressure [Ri ght Arm] 112/57 L 127/61 Pulse Oximetry 90 87 L Oxygen Delivery Me thod OxyMask OxyMask Oxygen Flow Rate 2 2 10/12/24 04:00 10/12/24 05:00 10/12/24 07:20 Temperature 98.9 F Pulse Rate 72 Pulse Rate [Pulse Oximeter] 73 76 Respiratory Rate 20 20 Blood Pressure [Le ft Arm] Blood Pressure [Ri ght Arm] 115/73 132/62 Pulse Oximetry 89 87 L Oxygen Delivery Me thod OxyMask OxyMask Oxygen Flow Rate 2 2 10/12/24 08:00 10/12/24 08:00 10/12/24 09:00 Temperature 98.3 F Pulse Rate Pulse Rate [Pulse Oximeter] 73 64 Respiratory Rate 28 H 28 H 24 Blood Pressure [Le ft Arm] Blood Pressure [Ri ght Arm] 124/62 113/58 L Pulse Oximetry 89 89 91 Oxygen Delivery Me thod Nasal Cannula Nasal Cannula Nasal Cannula Oxygen Flow Rate 4 4 4 10/12/24 10:00 10/12/24 12:00 10/12/24 12:51 Temperature Pulse Rate 56 L Pulse Rate [Pulse Oximeter] 69 56 L Respiratory Rate 28 H 24 Blood Pressure [Le ft Arm] Blood Pressure [Ri ght Arm] 118/61 108/97 H Pulse Oximetry 88 91 Oxygen Delivery Me thod Nasal Cannula Nasal Cannula Oxygen Flow Rate 4 4 Labs Labs: Laboratory Results - last 24 hr 10/12/24 10/12/24 10/12/24 06:19 07:40 09:17 WBC 6.44 RBC 4.55 Hgb 13.2 L Hct 38.8 MCV 85 MCH 29 MCHC 34 Plt Count 190 Sodium 131 L Potassium 3.3 L Chloride 104 Carbon Dioxide 18 L Anion Gap 9 BUN 54 H Creatinine 2.6 H Estimated Creat Clear 23.35 Estimated GFR 25 Glucose 282 H Calcium 7.1 L Ionized Calcium Lucian Phosphorus 4.2 Albumin 2.4 L Lab Acknowledgement Test Added Test Added 10/12/24 10/12/24 09:25 09:41 WBC RBC Hgb Hct MCV MCH MCHC Plt Count Sodium Potassium Chloride Carbon Dioxide Anion Gap BUN Creatinine Estimated Creat Clear Estimated GFR Glucose Calcium Ionized Calcium Lucian 1.04 L Phosphorus Albumin Lab Acknowledgement New Spec Needed
--- NOTE | 2024-10-12 14:00 | CRLHL7_ITS ---
For Patients: As a result of the Century Cures Act, medical imaging exams and procedure reports are released immediately into your electronic medical record. You may view this report before your referring provider. If you have questions, please contact your health care provider. INDICATION: Worsening kidney function TECHNIQUE: Ultrasound renal and bladder complete. Farley-scale and color Doppler sonographic images were acquired of the kidneys and urinary bladder. COMPARISON: None. FINDINGS: Right kidney: 9.7 cm. Normal echotexture and cortex. No suspicious masses, stones, or hydronephrosis. Left kidney: 10.7 cm. Normal echotexture and cortex. No suspicious masses, stones, or hydronephrosis. Prominent calyx versus cyst in the superior left kidney. Bladder: Normal in caliber and appearance. Patient was unable to void. Prevoid bladder volume: 73.7 mL. Postvoid bladder volume: 75.4 mL. IMPRESSION: Patient was unable to void, concerning for bladder outlet obstruction or neurogenic bladder. No hydronephrosis or nephrolithiasis. Dictated by Cece Martin MD @ 10/12/2024 3:19:46 PM (Electronically Signed)
--- NOTE | 2024-10-12 18:40 | PC.NURSE ---
Nursing Care Hours: [id number] Pt this shift calm and cooperative, alert and oriented. C/o pain to LL abdomen when coughing. States he has difficulty coughing up sputum but feels like he needs to. Cement Mixer Driver encouraged use of vibratory PEP as well as using the time on the commode while sitting up to lean forward with cough. IV patent. Spo2 stable on 4L NC. Scheduled neb given, pt desat with neb while attached to air. NSR on tele. Bilat LL with coarse crackles. Skin dry, and color even throughout. BM this shift, but was dumped before getting occult test. Second attempt for BM no results, however, director underwriter sales did see one drop of bright red blood and bright red blood when wiping. Appears to have some open fissures right at the anal sphincter. Pt did not report pain with wiping.
[2024-10-12] MEDS: INSULIN GLARGINE,HUM.REC.ANLOG 100 UNIT/ML INSULN.PEN 12 UNIT SUBCUT (20:39)
[2024-10-13] VITALS (26 sets, daily range): BP systolic 123–185; BP diastolic 65–98; PULSE 62–166; RESP 20–30; TEMP 36.4–36.9; O2SAT 87–91
[2024-10-13] MEDS: ALBUTEROL SULFATE 2.5 MG/3 ML VIAL.NEB NEB ×2 (00:53→09:29)
[2024-10-13] MEDS: guaiFENesin 100 MG/ML CUP PO (00:53)
[2024-10-13] MEDS: ACETAMINOPHEN 325 MG TABLET 650 MG PO (00:53)
[2024-10-13] MEDS: glipiZIDE 5 MG TABLET PO (05:30)
[2024-10-13] MEDS: IPRAT-ALBUT 0.5-2.5 MG/3 ML NEB 1 NEB IH ×2 (05:30→15:23)
[2024-10-13] MEDS: 0.9 % SODIUM CHLORIDE 1000 ml 1,000 ML 100 ML IV ×2 (06:15→16:11)
[2024-10-13] MEDS: LEVOTHYROXINE 75 MCG TABLET PO (06:15)
[2024-10-13 06:27] LABS: HCO3 VBG 19 mmol/L (21-28); PCO2 VBG 37 mmHG (40-50); PO2 VBG 48.2 mmHG (25-47); pH VBG 7.316 (7.32-7.43)
[2024-10-13 06:36] LABS: Hematocrit 41.4 % (37.0-53.0); Mean Corpuscular HGB Conc 34 gm/dL (32-36); Mean Corpuscular Hemoglobin 29 pg (26-34); Mean Corpuscular Volume 86 fL (80-100); Platelet Count* 166 K/uL (140-440); Red Blood Count 4.81 m/uL (4.30-5.90); White Blood Count* 7.47 K/uL (4.50-11.00)
[2024-10-13 06:38] LABS: Slide Review Reflex No
[2024-10-13 06:50] LABS: Chloride* 110 mmol/L (96-114); Sodium* 136 mmol/L (135-149)
[2024-10-13 06:51] LABS: Potassium* 3.7 mmol/L (3.6-5.1)
[2024-10-13] MEDS: METOPROLOL TARTRATE 1 MG/ML inj 5 MG IVP (06:51)
[2024-10-13 06:53] LABS: Creatinine* 2.6 mg/dL (0.5-1.5); Est. Creatinine Clearance* 24.02; Estimated Glomerular Filt Rate 25 ml/min
[2024-10-13 06:54] LABS: Anion Gap 8 mEq/L (7-15); Blood Urea Nitrogen* 50 mg/dL (7-30); Calcium* 7.7 mg/dL (8.4-10.6); Carbon Dioxide* 18 mmol/L (20-32); Glucose* 158 mg/dL (60-115)
--- NOTE | 2024-10-13 07:23 | PC.NURSE ---
23-07: pleasant and cooperative. [place] [facility] incont, urge incontinence. 1x smear BM, did not appear dark or blood tinged. Pt on 4L via NC, does desat to low 80s with activity, becomes SOB & dyspneic, screen writer has been increasing flow rate to 6L O2 via NC during pivot transfers. Tele - NSR, HR 60s-70s at rest. Around 0630 pts tele reading HR 160s, EKG performed, AFib with RVR. Jarad doc updated, received order for 5mg Metoprolol IV push. pts weight up 4lbs from yesterday. Pitting edema to BLE. Crackles auscultated in lung bases. nebs scheduled.
[2024-10-13] MEDS: AMIODARONE 200 MG TABLET PO (07:31)
[2024-10-13] MEDS: dilTIAZem HCL 125 MG in 0.9 % SODIUM CHLORIDE 100 ml 100 ML 10 MG IVPB (07:54)
--- NOTE | 2024-10-13 09:16 | NUTR.NU ---
RDn with MD consult for nutritional consult. Patient admitted for influenza A, CKD, A. fib with RVR. Per IDT, attempting to transfer patient. Not appropriate for nutrition interventions at this time. RDN will continue to monitor and follow-up if appropriate.
[2024-10-13] MEDS: BENZONATATE 100 MG CAPSULE PO ×2 (09:28→15:24)
[2024-10-13] MEDS: APIXABAN 5 MG TABLET PO (09:28)
[2024-10-13] MEDS: predniSONE 20 MG TABLET 40 MG PO (09:29)
[2024-10-13] MEDS: CLOPIDOGREL 75 MG TABLET PO (09:29)
[2024-10-13] MEDS: SODIUM CHLORIDE 0.9 % (FLUSH) 10 ML SYRINGE 5 ML IVF ×2 (09:29→20:20)
[2024-10-13 09:49] LABS: Lactate* 1.8 mmol/L (0.5-1.9)
[2024-10-13 11:20] LABS: Fecal Occult Blood* Positive (Negative)
[2024-10-13] MEDS: DIGOXIN 250 MCG/ML inj IV (16:07)
[2024-10-13] MEDS: MORPHINE 10 MG/0.5 ML ORAL SOLN 5 MG PO (16:28)
--- NOTE | 2024-10-13 16:37 | P.IMPN_ITS ---
Progress Note: A&P Assessment and plan (1) Need for comfort care: Problem details: 10/13: Initial plan was for transfer for higher level of care. Life in patient discussed comfort cares with cedric Baumann to pursue Status: Acute (2) Acute hypoxemic respiratory failure: Problem details: -worsened overnight, significant tachypnea, worse with ambulation -had been 89% in ED, low 90s with oxygen supplementation, appropriate for history of COPD, pulmonary fibrosis -RT evaluated -starting nebs, alternating albuterol and DuoNebs -oral prednisone, received dose of methylprednisolone in ED yesterday, increasing insulin sliding scale for coverage -Lasix, 1st dose ordered, will increase to b.i.d., monitoring response -CT chest ordered showing mix of centrilobular ground-glass opacities and sligh tly more patchy consolidation in the left lower lobe suggesting a bronchiolitis/early bronchopneumonia. As some areas in the left lower lobe are slightly more rounded, consider follow-up chest CT in 1 month after treatment to exclude an underlying lesion. 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 Mild bronchiectasis right upper lobe -has been moved to unit care coverage given worsening status, increasing tachypnea, continue to monitor - back to med surg floor status 10/11 -Echo shows 1. Normal left ventricular size, mildly increased wall thickness, normal global systolic function, calculated EF of 63 %. 2. Echo contrast was administered to enhance visualization of all left ventricular segments. 3. Right ventricular cavity size is normal, global systolic RV function is normal. 4. Normal left atrium size. 5. The aortic valve is normal, no stenosis and no regurgitation. 6. The mitral valve is normal, trace mitral regurgitation. 7. Tricuspid valve is normal. 8. No pericardial effusion. 10/10: RT reporting improved breathing, remaining tachypneic with ambulation. Started aerobika. Continue alternating nebs q 8 hours, prednisone. 10/12: Continues to slowly improve, continuing scheduled nebs, incentive spirometry, aerobika, mucinex, day 4/5 prednisone. Blood culture negative Initial plan on 10/13 was to transfer for higher level of care. Discussed with Dr. Meño Ghosh, clay dry press helper at [facility]. No bed availability immediately. Plan to transfer to step-down unit for now. Continue with Dilt drip for AFib. At 1 time dose of IV digoxin. Continue Oxy Mask, agrees high-flow/BiPAP would be ineffective. Reviewed labs including VBG, BMP. Tomasaing noted this morning. Lactate 1.8. Status: Acute (3) Influenza: Problem details: -Patient acutely ill with influenza a. This is causing borderline hypoxic respiratory failure. Initiate renally dosed Tamiflu -CT chest showing mix of centrilobular ground-glass opacities and slightly more patchy consolidation in the left lower lobe suggesting a bronchiolitis/early bronchopneumonia 10/10: Change Tamiflu to 30 mg once daily given worsening TRISHA - discontinued 10/11 secondary to ongoing worsening TRISHA Continue symptomatic cares. No longer on Tamiflu. Status: Acute (4) COPD exacerbation: Problem details: -Favor pulmonary fibrosis over COPD as the primary chronic lung disease on admission. 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 Mild bronchiectasis right upper lobe -RT discussed role of nebulizers with patient, willing to try given worsening tachypnea -oral steroids, tight management of glucose -oxygen supplementation to maintain saturations > 88%, weaning as able Status: Acute (5) Pulmonary fibrosis: Problem details: Clinically and radiologically appears to have significant pulmonary fibrosis contributing to his hypoxia -outpatient follow-up with pulmonology given CT findings as previously r ecommended - severe emphysema, asbestos exposure, bronchiectasis (reviewed CT scan from 11/2016 as well) Status: Acute (6) Lower extremity venous stasis: Problem details: Legs have appearance of chronic venous stasis changes. Status: Acute (7) PVD (peripheral vascular disease): Problem details: seen by [facility] vascular medicine, s/p bilateral lower extremity angiogram with angioplasty 04/11 for critical limb ischemia/toe ulcerations. Currently has adequate circulation but nonpalpable pedal pulses Status: Acute (8) DM (diabetes mellitus), type 2: Problem details: Noninsulin dependent. Continue oral hypoglycemics. Received [facility]u-Med[facility] emergency department so will likely have brief hyperglycemia. Increased ISS to #3 as starting oral steroids 10/10: Glucose readings < 150 thus far today 10/12: will increase ISS to #4 for better control, increase glargine to 12 units Status: Acute (9) Acute kidney injury: Problem details: -Baseline creatinine from 1 year ago 1.3. 1.7 on admission, currently 1.8. Continue to monitor. Renal dose medications. -will give 500 mL IVF hydration following contrast for CT scan, while continuing diuresis -hold lisinopril 10/10: Creatinine 2.3. CTA chest with contrast yesterday. Diabetic, not on metformin. Holding lisinopril. Adjusted Tamiflu for renal dosing. Discussed with pharmacy. NS 500 mL bolus. 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 Encourage oral hydration 10/11: Creatinine 2.5. Stop Tamiflu. Giving dose Lasix x 1. Starting gentle IV hydration, monitoring for fluid overload 10/12: Creatinine 2.6. Very likely cardiorenal given poor control of breathing and ventricular rate, recurrent AFib with RVR, in setting of acute infection and severe chronic pulmonary disease, . Continuing to work on improving the knees, bringing them under control. Have started gentle IVF, monitoring for fluid overload. Will give dose of albumin. Have reviewed meds with pharmacy, renal dosing, holding those are that are nephrotoxic. BUN downtrending. Hgb stable. Stool occult blood to be collected for questionable stool appearance Status: Acute (10) CKD (chronic kidney disease), stage III: Problem details: -baseline 1.2-1.5 Status: Chronic (11) PAF (paroxysmal atrial fibrillation): Problem details: CHADS2-VASc >7. On chronic anticoagulation -continue Bisoprolol q.a.m., using own supply - DISCONTINUED. May consider restarting at a later date with PCP -continue apixaban b.i.d. Status: Acute (12) Atrial fibrillation with RVR: Problem details: -onset this am, approx 0600, >130 HR -patient reports receiving p.o. dose bisoprolol last night -has been tachypneic, receiving albuterol and DuoNebs, steroids -attempted IV bumps metoprolol without success -diltiazem drip initiated, converted to NSR, EKG confirmed, at 10mg -started oral diltiazem 30 q.6 hours - this was d/c'd evening 10/10 due to HR 56- 57 10/11: recurrence of afib with RVR, HR >150. Improved to 100 with diltiazem 10mg IV. Started oral dilt 120mg q am. Continue bisopropolol 2.5mg. 10/12: recurrence again yesterday. Cardiology reviewed. Started on amiodarone drip with good rate control. Starting oral amiodarone 200 mg daily. Also given 1 dose IV digoxin. Consider further dosing if recurrence of RVR despite amiodarone. Diltiazem discontinued. Bisopropolol discontinued, could be restarted at a later date with PCP. Status: Acute (13) Essential hypertension: Problem details: -continue amlodipine, hold lisinopril given TRISHA -holding amlodipine while managing AFib RVR Status: Acute (14) Peripheral edema: Problem details: -chronic. Currently,+3. Previously on lasix, approximately 2021 -previous echo 2021 shows Final Impressions: 1. Normal left ventricular size, normal wall thickness, normal global systolic function, calculated EF of 70 %. 2. Right ventricular cavity size is normal, global systolic RV function is normal. 3. The aortic valve is trileaflet and sclerotic, no stenosis and no regurgitation. Otherwise normal valvular structures and function. 4. No RVSP due to insufficient TR jet. -compression stockings - removing 30 minutes q shift per protocol -received 1 dose IV Lasix 10/09 and 10/11 -repeat echo as above Status: Acute (15) Cholelithiasis: Problem details: -incidental finding. CT chest showing Upper abdomen: Density questioned in the gallbladder on the very bottom of the scan, incompletely included. Likely cholelithiasis. -currently, no abdominal pain. Continue to monitor. Outpatient follow-up Status: Acute (16) Hypokalemia: Problem details: -potassium 3.3, supplement with oral replacement, recheck in a.m. Status: Acute (17) Hypocalcemia: Problem details: -calcium 7.1, ionized calcium 1.04, low normal. Supplement with 1 g IV calcium gluconate. Monitor -phosphorus 4.2, albumin 2.4 Status: Acute (18) Hyponatremia: Problem details: -mild, 131, monitor Status: Acute Time Spent With Patient Total time spent: Total time spent caring for the patient today was 90 minutes. This includes time spent for the visit reviewing the chart, time spent during the visit, time spent after the visit and documentation and planning in coordination of care. Subjective Date Seen: 10/13/24 Interval history: Patient is seen this morning, no significant improvement from a respiratory status. Is back in atrial fibrillation again. Was given a dose of metoprolol IV without adequate response. Remains tachypneic, hypoxic. Afebrile. Discussed with patient and family that we should consider transferring to tertiary level care for further management given no significant improvement. On board with this early this morning. Initiated transfer, awaiting bed availability. By 4:00 p.m., still no bed available. Patient is back in AFib with RVR despite Dilt drip. Is more tired. Discussed comfort cares with Dr. Fuentes. and patient wish to change to comfort cares at this time. Transfer cancelled. Exam Narrative: Exam Narrative: PHYSICAL EXAM General: Tired, tachypneic Cardiovascular: Tachycardic again, pitting edema chronic Pulmonary: Remains diminished, tachypneic, coarse cough Neurological: Alert, answering questions appropriately, cranial nerves intact, no focal findings Extremities: No gross joint deformity or swelling. AROMI. Neurovascularly intact Skin: Warm, dry. Mottling bilateral lower extremities. Const: Vital Signs, click to edit/add: Vital Signs - 24 hr 10/12/24 18:00 10/12/24 18:45 10/12/24 19:06 Temperature 98.6 F 98.7 F Pulse Rate 73 Pulse Rate [Pulse Oximeter] 73 72 Respiratory Rate 30 H 20 Blood Pressure [Le ft Arm] 136/62 126/65 Blood Pressure [Ri ght Arm] Pulse Oximetry 89 90 Oxygen Delivery Me thod Nasal Cannula Nasal Cannula Oxygen Flow Rate 4 4 10/12/24 19:08 10/12/24 20:43 10/12/24 22:40 Temperature 98.8 F Pulse Rate 73 Pulse Rate [Pulse Oximeter] 72 80 Respiratory Rate 20 20 Blood Pressure [Le ft Arm] 151/72 H Blood Pressure [Ri ght Arm] Pulse Oximetry 90 Oxygen Delivery Me thod Nasal Cannula Oxygen Flow Rate 4 10/12/24 23:00 10/12/24 23:00 10/12/24 23:16 Temperature Pulse Rate Pulse Rate [Pulse Oximeter] 80 Respiratory Rate 30 H 20 Blood Pressure [Le ft Arm] Blood Pressure [Ri ght Arm] 174/68 H Pulse Oximetry 88 91 Oxygen Delivery Me thod Nasal Cannula Nasal Cannula Oxygen Flow Rate 4 4 10/13/24 01:12 10/13/24 02:00 10/13/24 02:39 Temperature 98.4 F Pulse Rate 83 Pulse Rate [Pulse Oximeter] 91 91 Respiratory Rate 30 H 20 Blood Pressure [Le ft Arm] 185/90 H 133/71 Blood Pressure [Ri ght Arm] Pulse Oximetry 88 91 Oxygen Delivery Me thod Nasal Cannula Nasal Cannula Oxygen Flow Rate 4 4 10/13/24 03:00 10/13/24 04:01 10/13/24 06:19 Temperature 98.4 F Pulse Rate Pulse Rate [Pulse Oximeter] 62 141 H Respiratory Rate 20 20 24 Blood Pressure [Le ft Arm] 150/75 H 156/88 H Blood Pressure [Ri ght Arm] Pulse Oximetry 90 87 L Oxygen Delivery Me thod Nasal Cannula Nasal Cannula Oxygen Flow Rate 4 4 10/13/24 06:56 10/13/24 07:30 10/13/24 07:30 Temperature 97.7 F Pulse Rate 144 H Pulse Rate [Pulse Oximeter] 133 H Respiratory Rate 28 H 28 H Blood Pressure [Le ft Arm] 123/83 Blood Pressure [Ri ght Arm] Pulse Oximetry 88 87 L Oxygen Delivery Me thod Nasal Cannula OxyMask Oxygen Flow Rate 6 6 10/13/24 07:30 10/13/24 08:00 10/13/24 08:15 Temperature Pulse Rate Pulse Rate [Pulse Oximeter] 133 H 166 H 160 H Respiratory Rate 28 H 28 H 28 H Blood Pressure [Le ft Arm] 130/88 135/79 Blood Pressure [Ri ght Arm] Pulse Oximetry 88 90 Oxygen Delivery Me thod OxyMask OxyMask Oxygen Flow Rate 6 6 10/13/24 08:30 10/13/24 08:45 10/13/24 09:00 Temperature Pulse Rate Pulse Rate [Pulse Oximeter] 136 H 136 H 85 Respiratory Rate 28 H 28 H 28 H Blood Pressure [Le ft Arm] 126/79 135/76 156/72 H Blood Pressure [Ri ght Arm] Pulse Oximetry 88 90 88 Oxygen Delivery Me thod OxyMask OxyMask OxyMask Oxygen Flow Rate 6 6 6 10/13/24 09:15 10/13/24 09:30 10/13/24 10:00 Temperature 97.7 F Pulse Rate Pulse Rate [Pulse Oximeter] 81 83 85 Respiratory Rate 28 H 28 H 28 H Blood Pressure [Le ft Arm] 136/65 149/78 H 133/98 H Blood Pressure [Ri ght Arm] Pulse Oximetry 88 88 88 Oxygen Delivery Me thod OxyMask OxyMask OxyMask Oxygen Flow Rate 6 6 10 10/13/24 10:32 10/13/24 11:00 10/13/24 12:00 Temperature 97.5 F L Pulse Rate Pulse Rate [Pulse Oximeter] 87 85 78 Respiratory Rate 28 H 28 H 28 H Blood Pressure [Le ft Arm] 152/84 H 131/92 H 144/72 H Blood Pressure [Ri ght Arm] Pulse Oximetry 87 L 88 89 Oxygen Delivery Me thod OxyMask OxyMask OxyMask Oxygen Flow Rate 10 10 10 10/13/24 12:11 10/13/24 12:18 10/13/24 13:11 Temperature Pulse Rate 76 Pulse Rate [Pulse Oximeter] 87 81 Respiratory Rate 28 H 26 H Blood Pressure [Le ft Arm] 143/70 H Blood Pressure [Ri ght Arm] Pulse Oximetry 88 Oxygen Delivery Me thod OxyMask Oxygen Flow Rate 10 10/13/24 14:00 10/13/24 15:00 10/13/24 15:00 Temperature 97.7 F Pulse Rate Pulse Rate [Pulse Oximeter] 77 133 H Respiratory Rate 26 H 28 H 28 H Blood Pressure [Le ft Arm] 140/73 H 144/97 H Blood Pressure [Ri ght Arm] Pulse Oximetry 90 88 87 L Oxygen Delivery Me thod OxyMask OxyMask OxyMask Oxygen Flow Rate 10 10 10 10/13/24 15:15 10/13/24 15:15 10/13/24 15:48 Temperature Pulse Rate 124 H Pulse Rate [Pulse Oximeter] 133 H 129 H Respiratory Rate 28 H 28 H Blood Pressure [Le ft Arm] 131/85 Blood Pressure [Ri ght Arm] Pulse Oximetry 87 L Oxygen Delivery Me thod OxyMask Oxygen Flow Rate 10 Labs Labs: Laboratory Results - last 24 hr 10/13/24 10/13/24 10/13/24 06:08 09:42 11:00 WBC 7.47 RBC 4.81 Hgb 14.0 Hct 41.4 MCV 86 MCH 29 MCHC 34 Plt Count 166 VBG pH 7.316 L VBG pCO2 37 L VBG pO2 48.2 H VBG HCO3 19 L Sodium 136 Potassium 3.7 Chloride 110 Carbon Dioxide 18 L Anion Gap 8 BUN 50 H Creatinine 2.6 H Estimated Creat Clear 24.02 Estimated GFR 25 Glucose 158 H Lactate 1.8 Calcium 7.7 L Stool Occult Blood Positive
[2024-10-13] MEDS: MORPHINE 10 MG/0.5 ML ORAL SOLN PO ×5 (17:20→23:51)
--- NOTE | 2024-10-13 18:15 | PC.NURSE ---
end of shift. pt has been pleasant and cooperative. alert x4. he is on 6L OxyMask and was increased to 10 and 15 with all activity. RT and MD in the room. HR was 160 Afib with rvr and Dilt drip was started. he is up with 1 assist to BSC, brief is on. he is incont. he had a bm today/ blood positive. Pitting edema to BLE.teds socks are on and off. 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 md is aware. LS are crackles and diminished. pt is SOB with any activity. he complained of air hunger and being tired and not wanting to transfer. MD was updated, MD paris went in to talk to pt and he said he was tired and did not want to be transferred and wanted to be done. po morphine was ordered and comfort care was started and transfer was stopped.
[2024-10-13] MEDS: LORazepam 2 MG/ML inj 1 MG IVP ×2 (20:21→22:45)
--- NOTE | 2024-10-13 21:59 | PC.NURSE ---
After discussion with the Dr and RN the family decided to start to turn down Oxy mask and keep Pt comfortable. O2 will be decreased 2L/hr starting at 2200. Dr and Family in agreement with that plan.
[2024-10-14] MEDS: LORazepam 2 MG/ML inj 1 MG IVP (01:03)
[2024-10-14] MEDS: MORPHINE 10 MG/0.5 ML ORAL SOLN PO ×3 (03:49→13:55)
--- NOTE | 2024-10-14 06:18 | PC.NURSE ---
Pt has been on RA since 299. Does not appear to be in distress. Resp have slowed to 12/min but pt not struggling to breath. Seems comfortable with a slight moan. Family in room
[2024-10-14] MEDS: SODIUM CHLORIDE 0.9 % (FLUSH) 10 ML SYRINGE 5 ML IVF (09:37)
[2024-10-14 11:30] VITALS: PULSE 129; RESP 28
--- NOTE | 2024-10-14 12:02 | PM.IMPN1 ---
Progress Note: A&P Assessment and plan (1) Need for comfort care: Problem details: 10/13: Initial plan was for transfer for higher level of care. Life in patient discussed comfort cares with cedric Baumann to pursue 10/14: Comfort cares Status: Acute (2) Acute hypoxemic respiratory failure: Problem details: -worsened overnight, significant tachypnea, worse with ambulation -had been 89% in ED, low 90s with oxygen supplementation, appropriate for history of COPD, pulmonary fibrosis -RT evaluated -starting nebs, alternating albuterol and DuoNebs -oral prednisone, received dose of methylprednisolone in ED yesterday, increasing insulin sliding scale for coverage -Lasix, 1st dose ordered, will increase to b.i.d., monitoring response -CT chest ordered showing mix of centrilobular ground-glass opacities and slightly more patchy consolidation in the left lower lobe suggesting a bronchiolitis/early bronchopneumonia. As some areas in the left lower lobe are slightly more rounded, consider follow-up chest CT in 1 month after treatment to exclude an underlying lesion. 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 Mild bronchiectasis right upper lobe -has been moved to unit care coverage given worsening status, increasing tachypnea, continue to monitor - back to med surg floor status 10/11 -Echo shows 1. Normal left ventricular size, mildly increased wall thickness, normal global systolic function, calculated EF of 63 %. 2. Echo contrast was administered to enhance visualization of all left ventricular segments. 3. Right ventricular cavity size is normal, global systolic RV function is normal. 4. Normal left atrium size. 5. The aortic valve is normal, no stenosis and no regurgitation. 6. The mitral valve is normal, trace mitral regurgitation. 7. Tricuspid valve is normal. 8. No pericardial effusion. 10/10: RT reporting improved breathing, remaining tachypneic with ambulation. Started aerobika. Continue alternating nebs q 8 hours, prednisone. 10/12: Continues to slowly improve, continuing scheduled nebs, incentive spirometry, aerobika, mucinex, day 4/5 prednisone. Blood culture negative Initial plan on 10/13 was to transfer for higher level of care. Discussed with Dr. 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 No bed availability immediately. Plan to transfer to step-down unit for now. Continue with Dilt drip for AFib. At 1 time dose of IV digoxin. Continue Oxy Mask, agrees high-flow/BiPAP would be ineffective. Reviewed labs including VBG, BMP. Tomasaing noted this morning. Lactate 1.8. Status: Acute (3) Influenza: Problem details: -Patient acutely ill with influenza a. This is causing borderline hypoxic respiratory failure. Initiate renally dosed Tamiflu -CT chest showing mix of centrilobular ground-glass opacities and slightly more patchy consolidation in the left lower lobe suggesting a bronchiolitis/early bronchopneumonia 10/10: Change Tamiflu to 30 mg once daily given worsening TRISHA - discontinued 10/11 secondary to ongoing worsening TRISHA Continue symptomatic cares. No longer on Tamiflu. Status: Acute (4) COPD exacerbation: Problem details: -Favor pulmonary fibrosis over COPD as the primary chronic lung disease on admission. 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 Mild bronchiectasis right upper lobe -RT discussed role of nebulizers with patient, willing to try given worsening tachypnea -oral steroids, tight management of glucose -oxygen supplementation to maintain saturations > 88%, weaning as able Status: Acute (5) Pulmonary fibrosis: Problem details: Clinically and radiologically appears to have significant pulmonary fibrosis contributing to his hypoxia -outpatient follow-up with pulmonology given CT findings as previously recommended - severe emphysema, asbestos exposure, bronchiectasis (reviewed CT scan from 11/2016 as well) Status: Acute (6) Lower extremity venous stasis: Problem details: Legs have appearance of chronic venous stasis changes. Status: Acute (7) PVD (peripheral vascular disease): Problem details: seen by [facility] vascular medicine, s/p bilateral lower extremity angiogram with angioplasty 04/11 for critical limb ischemia/toe ulcerations. Currently has adequate circulation but nonpalpable pedal pulses Status: Acute (8) DM (diabetes mellitus), type 2: Problem details: Noninsulin dependent. Continue oral hypoglycemics. Received [facility] emergency department so will likely have brief hyperglycemia. Increased ISS to #3 as starting oral steroids 10/10: Glucose readings < 150 thus far today 10/12: will increase ISS to #4 for better control, increase glargine to 12 units Status: Acute (9) Acute kidney injury: Problem details: -Baseline creatinine from 1 year ago 1.3. 1.7 on admission, currently 1.8. Continue to monitor. Renal dose medications. -will give 500 mL IVF hydration following contrast for CT scan, while continuing diuresis -hold lisinopril 10/10: Creatinine 2.3. CTA chest with contrast yesterday. Diabetic, not on metformin. Holding lisinopril. Adjusted Tamiflu for renal dosing. Discussed with pharmacy. NS 500 mL bolus. Could consider another dose of Lasix but will recheck utilization specialist following these changes. Encourage oral hydration 10/11: Creatinine 2.5. Stop Tamiflu. Giving dose Lasix x 1. Starting gentle IV hydration, monitoring for fluid overload 10/12: Creatinine 2.6. Very likely cardiorenal given poor control of breathing and ventricular rate, recurrent AFib with RVR, in setting of acute infection and severe chronic pulmonary disease, . Continuing to work on improving the knees, bringing them under control. Have started gentle IVF, monitoring for fluid overload. Will give dose of albumin. Have reviewed meds with pharmacy, renal dosing, holding those are that are nephrotoxic. BUN downtrending. Hgb stable. Stool occult blood to be collected for questionable stool appearance Status: Acute (10) CKD (chronic kidney disease), stage III: Problem details: -baseline 1.2-1.5 Status: Chronic (11) PAF (paroxysmal atrial fibrillation): Problem details: CHADS2-VASc >7. On chronic anticoagulation -continue Bisoprolol q.a.m., using own supply - DISCONTINUED. May consider restarting at a later date with PCP -continue apixaban b.i.d. Status: Acute (12) Atrial fibrillation with RVR: Problem details: -onset this am, approx 0600, >130 HR -patient reports receiving p.o. dose bisoprolol last night -has been tachypneic, receiving albuterol and DuoNebs, steroids -attempted IV bumps metoprolol without success -diltiazem drip initiated, converted to NSR, EKG confirmed, at 10mg -started oral diltiazem 30 q.6 hours - this was d/c'd evening 10/10 due to HR 56-57 10/11: recurrence of afib with RVR, HR >150. Improved to 100 with diltiazem 10mg IV. Started oral dilt 120mg q am. Continue bisopropolol 2.5mg. 10/12: recurrence again yesterday. Cardiology reviewed. Started on amiodarone drip with good rate control. Starting oral amiodarone 200 mg daily. Also given 1 dose IV digoxin. Consider further dosing if recurrence of RVR despite amiodarone. Diltiazem discontinued. Bisopropolol discontinued, could be restarted at a later date with PCP. Status: Acute (13) Essential hypertension: Problem details: -continue amlodipine, hold lisinopril given TRISHA -holding amlodipine while managing AFib RVR Status: Acute (14) Peripheral edema: Problem details: -chronic. Currently,+3. Previously on lasix, approximately 2021 -previous echo 2021 shows Final Impressions: 1. Normal left ventricular size, normal wall thickness, normal global systolic function, calculated EF of 70 %. 2. Right ventricular cavity size is normal, global systolic RV function is normal. 3. The aortic valve is trileaflet and sclerotic, no stenosis and no regurgitation. Otherwise normal valvular structures and function. 4. No RVSP due to insufficient TR jet. -compression stockings - removing 30 minutes q shift per protocol -received 1 dose IV Lasix 10/09 and 10/11 -repeat echo as above Status: Acute (15) Cholelithiasis: Problem details: -incidental finding. CT chest showing Upper abdomen: Density questioned in the gallbladder on the very bottom of the scan, incompletely included. Likely cholelithiasis. -currently, no abdominal pain. Continue to monitor. Outpatient follow-up Status: Acute (16) Hypokalemia: Problem details: -potassium 3.3, supplement with oral replacement, recheck in a.m. Status: Acute (17) Hypocalcemia: Problem details: -calcium 7.1, ionized calcium 1.04, low normal. Supplement with 1 g IV calcium gluconate. Monitor -phosphorus 4.2, albumin 2.4 Status: Acute (18) Hyponatremia: Problem details: -mild, 131, monitor Status: Acute Time Spent With Patient Total time spent: Total time spent caring for the patient today was 45 minutes. This includes time spent for the visit reviewing the chart, time spent during the visit, time spent after the visit and documentation and planning in coordination of care. Subjective Date Seen: 10/14/24 Interval history: Seen with at bedside. Sleeping. Remains tachypneic. Tachycardic. Discussed with chronic pulmonary disease, unmanaged, uncontrolled diabetes, poorly managed chronic diseases leading to difficulty managing acute viral illness and ongoing decompensation. Comfort cares Exam Narrative: Exam Narrative: PHYSICAL EXAM General: Sleeping, tachypneic Cardiovascular: Tachycardic Pulmonary: Dyspneic, tachypneic Neurological: Sleeping Extremities: Edema, mottling bilateral lower extremities Skin: Warm, dry. Const: Vital Signs, click to edit/add: Vital Signs - 24 hr 10/13/24 12:11 10/13/24 12:18 10/13/24 13:11 Temperature Pulse Rate 76 Pulse Rate [Pulse Oximeter] 87 81 Respiratory Rate 28 H 26 H Blood Pressure [Le ft Arm] 143/70 H Pulse Oximetry 88 Oxygen Delivery Me thod OxyMask Oxygen Flow Rate 10 10/13/24 14:00 10/13/24 15:00 10/13/24 15:00 Temperature 97.7 F Pulse Rate Pulse Rate [Pulse Oximeter] 77 133 H Respiratory Rate 26 H 28 H 28 H Blood Pressure [Le ft Arm] 140/73 H 144/97 H Pulse Oximetry 90 88 87 L Oxygen Delivery Me thod OxyMask OxyMask OxyMask Oxygen Flow Rate 10 10 10 10/13/24 15:15 10/13/24 15:15 10/13/24 15:48 Temperature Pulse Rate 124 H Pulse Rate [Pulse Oximeter] 133 H 129 H Respiratory Rate 28 H 28 H Blood Pressure [Le ft Arm] 131/85 Pulse Oximetry 87 L Oxygen Delivery Me thod OxyMask Oxygen Flow Rate 10
--- NOTE | 2024-10-14 15:04 | PM.DN ---
Pronouncement Note Date and Time of Date of : 10/14/24 Time of : 15:02 PCOD Preliminary cause of : Acute hypoxic on chronic hypercapnic respiratory failure Contributing Factors (1) Need for comfort care: (2) Acute hypoxemic respiratory failure: (3) Influenza: (4) COPD exacerbation: (5) Pulmonary fibrosis: (6) Lower extremity venous stasis: (7) PVD (peripheral vascular disease): (8) DM (diabetes mellitus), type 2: (9) Acute kidney injury: (10) CKD (chronic kidney disease), stage III: (11) PAF (paroxysmal atrial fibrillation): (12) Atrial fibrillation with RVR: (13) Essential hypertension: (14) Peripheral edema: (15) Cholelithiasis: (16) Hypokalemia: (17) Hypocalcemia: (18) Hyponatremia: Summary Additional details: Patient admitted to the hospital on 10/08/24 for acute hypoxic respiratory failure in the setting of Influenza A infection. History of COPD and CAD. During stay, noted to have TRISHA of unknown origin and intermittent RVR (known h/o A fib). Discussed transfer to higher level of care on 10/13, but patient elected to transition to comfort-focused measures given his tachypnea and severe DING. Family in room during stay and patient comfortably on 10/14/24. Additional Data Confirmation of : no pulse, no respirations and no heart sounds Family: at bedside Attending physician: Michaela Fuentes MD Time Seen by Provider: 15:02 Date Seen: 10/14/24 Was code activated?: No
--- NOTE | 2024-10-14 19:24 | PC.NURSE ---
end of shift. pt was turned when was willing to let us turn him. she was getting upset with staff asking. so was talking with son. pt condition was decreasing. loc was decreasing and respiration and breathing. he got po pain meds. he passed @ 1502 with family in the room. eyes called. pt left with home @ 1744.
== END 2024-10-14 17:44 | disposition expired | DRG 193 ==
LOC: ED 15:17 → MEDSURG 18:27
PROVIDERS: Internal Medicine; Physician Assistant; Admitting Provider Family Medicine; Emergency Provider Student in an Organized Health Care Education/Training Program; PCP Family Medicine; Visit Provider Family Medicine
DX: J10.00 Influenza due to other identified influenza virus with unspecified type of pneumonia (principal); J96.21 Acute and chronic respiratory failure with hypoxia; J96.22 Acute and chronic respiratory failure with hypercapnia; J44.1 Chronic obstructive pulmonary disease with (acute) exacerbation; N17.9 Acute kidney failure, unspecified; I48.92 Unspecified atrial flutter; J44.0 Chronic obstructive pulmonary disease with (acute) lower respiratory infection; E87.1 Hypo-osmolality and hyponatremia; J21.9 Acute bronchiolitis, unspecified; J84.10 Pulmonary fibrosis, unspecified; J18.9 Pneumonia, unspecified organism; J43.2 Centrilobular emphysema; J92.0 Pleural plaque with presence of asbestos; J10.1 Influenza due to other identified influenza virus with other respiratory manifestations; J47.9 Bronchiectasis, uncomplicated; E11.65 Type 2 diabetes mellitus with hyperglycemia; E11.51 Type 2 diabetes mellitus with diabetic peripheral angiopathy without gangrene; I48.0 Paroxysmal atrial fibrillation; I12.9 Hypertensive chronic kidney disease with stage 1 through stage 4 chronic kidney disease, or unspecified chronic kidney disease; E11.22 Type 2 diabetes mellitus with diabetic chronic kidney disease; N18.30 Chronic kidney disease, stage 3 unspecified; K80.20 Calculus of gallbladder without cholecystitis without obstruction; E87.6 Hypokalemia; E83.51 Hypocalcemia; F17.210 Nicotine dependence, cigarettes, uncomplicated; Z79.01 Long term (current) use of anticoagulants; I25.10 Atherosclerotic heart disease of native coronary artery without angina pectoris; K21.9 Gastro-esophageal reflux disease without esophagitis; I87.8 Other specified disorders of veins; I25.2 Old myocardial infarction; Z86.73 Personal history of transient ischemic attack (TIA), and cerebral infarction without residual deficits; Z95.1 Presence of aortocoronary bypass graft
CPT/HCPCS: 36415; 71046; 71275; 76770; 80048; 80076; 82040; 82270; 82330; 82803; 82947; 82962; 83036; 83605; 83735; 83880; 84100; 84484; 85025; 85027; 85379; 87040; 87493; 87631; 93005; 93306; 94640; 94664; 94761; 99284; 99285; G0378; A9270; J0153; J0282; J0613; J1160; J1940; J2060; J2919; J3475; J3490; J7030; J7512; P9047; Q9957; Q9967